=== PATIENT | female | born 1950 | race African-American/Black ===

== ENCOUNTER 2016-12-14 11:15 | Inpatient (IN) | payer MEDICARE, MEDICAID ==
[~2016-12-14] VITALS: Ht 170.2 cm; Wt 86.2 kg
[2016-12-14] VITALS (7 sets, daily range): BP systolic 136–160; BP diastolic 50–82
[~2016-12-14 11:15] MED LIST: AMITRIPTYLINE25 MG ORAL; CALCITRIOL0.25 MCG PO; COLACE250 MG ORAL; ERGOCALCIF8000 UNIT1 PO; GABAPENTIN300 MG ORAL; HALDOL INJECT5 MG/ML IM; LEVOTHYROXINE25 MCG ORAL; LIPITOR20 MG ORAL; LIPITOR40 MG ORAL; LORAZEPAM0.5 MG ORAL; METOPROLOL TART25 MG ORAL; NEPHRO-VITE RX1 EAC1 PO; NEURONTIN300 MG ORAL; NEURONTIN600 MG ORAL; NORCO 10/3251 EA ORAL; NORCO 5-325 TA1 EACH ORAL; NOVOLOG100 UNIT/3 SUBQ; PRILOSEC10 MG ORAL; PROCRIT10000 UNIT SUBQ; REGLAN5 MG ORAL; TYLENOL325 MG ORAL; VITAMIN D22000 UNIT PO
[2016-12-14 11:53] LABS: BASOPHILS % (AUTO) 2.2 % (0.0-2.0); EOSINOPHILS % (AUTO) 1.9 % (0.0-3.0); LYMPHOCYTES % (AUTO) 4.6 % (20.0-45.0); MEAN CORPUSCULAR HEMOGLOBIN 29.2 PG (27.0-31.0); MEAN CORPUSCULAR HGB CONC 31.3 G/DL (32.0-36.0); MEAN CORPUSCULAR VOLUME 93 FL (80-99); MONOCYTES % (AUTO) 8.3 % (1.0-10.0); PLATELET COUNT 238 K/UL (150-450); RED CELL DISTRIBUTION WIDTH 14.6 % (11.6-14.8); WHITE BLOOD COUNT 11.7 K/UL (4.8-10.8)
[2016-12-14 11:58] LABS: INR 1.3 (0.9-1.1); PROTHROMBIN TIME 13.3 SEC (9.30-11.50)
[2016-12-14 11:59] LABS: ALBUMIN/GLOBULIN RATIO 1.4 (1.0-2.7); CALCIUM 9.7 mg/dL (8.6-10.2); CREATININE 6.7 mg/dL (0.5-0.9); GLOMERULAR FILTRATION RATE 7.5 mL/min (>60); POTASSIUM 5.5 mEQ/L (3.4-4.9); TOTAL PROTEIN 6.9 g/dL (6.6-8.7); TROPONIN I < 0.30 ng/mL (<=0.30)
[2016-12-14] MEDS ORDERED: RENVELA0.8 GM ORAL (12:04)
[2016-12-14] MEDS ORDERED: NEURONTIN600 MG ORAL (12:04)
[2016-12-14] MEDS ORDERED: LEVEMIR100 UNIT/1 SUBQ (12:04)
[2016-12-14] MEDS ORDERED: AMLODIPINE BESY10 MG ORAL (12:04)
[2016-12-14] MEDS ORDERED: LOSARTAN POTASS50 MG ORAL (12:04)
[2016-12-14] MEDS ORDERED: FUROSEMIDE20 M1 ORAL (12:04)
[2016-12-14] MEDS ORDERED: CATAPRES0.1 MG ORAL ×2 (12:04→19:48)
[2016-12-14] MEDS ORDERED: NEPHROVITE1 TAB ORAL (12:04)
[2016-12-14] MEDS ORDERED: HUMULIN R100 UNIT/1 SUBQ ×2 (12:04→19:48)
[2016-12-14] MEDS ORDERED: ELIQUIS2.5 MG PO (12:04)
[2016-12-14 12:09] LABS: CKMB 1.9 ng/mL (< 3.8)
--- NOTE | 2016-12-14 15:04 | Emergency Room Report ---
History of Present Illness General Chief Complaint: Vomiting Source: Patient, Friend, EMS Present Illness HPI This patient presents from a [facility] facility. She has a history of end -stage renal disease and is dialysis dependent. She says diabetes and heart failure. She presents at the request of her primary care physician. Apparently she has been having nausea, vomiting and diarrhea. There is also concerned that she has had facial swelling. She denies chest pain. She does have crampy abdominal pain. She denies shortness of breath. She has no other complaints. Allergies: Coded Allergies: NSAIDS (NON-STEROIDAL ANTI-INFLAMMA (Verified Allergy, Mild, 01/30/16) Uncoded Allergies: NSAIDS (Allergy, Unknown, 03/15/16) Patient History Past Medical History: see triage record, DM, HTN, [place], CAD, CHF, renal disease, dialysis Social History: Denies: alcohol use, drug use, smoking Reviewed Nursing Documentation: PMH: Agreed, PSxH: Agreed Nursing Documentation-PMH Past Medical History: No History, Except For Hx Cardiac Problems: Yes - CHF Hx Hypertension: No - ANEMIA Hx Diabetes: Yes Hx Cancer: No Hx Gastrointestinal Problems: Yes - GASTROPARESIS Hx Dialysis: Yes - TUES,THURS,SAT Hx Neurological Problems: Yes - ENCEPHALOPATHY, neuralgia, neuritis Hx Weakness: Yes Review of Systems All Other Systems: negative except mentioned in HPI Physical Exam Vital Signs Date Time Temp Pulse Resp B/P Pulse Ox O2 Delivery O2 Flow Rate FiO2 12/14/16 11:05 66 20 184/86 98 Room Air 12/14/16 11:42 97.8 Sp02 EP Interpretation: reviewed, normal General Appearance: no apparent distress, alert, GCS 15, non-toxic Head: normocephalic, atraumatic Eyes: bilateral eye PERRL, bilateral eye normal inspection ENT: hearing grossly normal, normal pharynx, no angioedema, normal voice Neck: full range of motion, supple/symm/no masses Respiratory: chest non-tender, lungs clear, normal breath sounds, speaking full sentences Cardiovascular #1: regular rate, rhythm, no edema Gastrointestinal: normal bowel sounds, soft, non-distended, no guarding, no rebound, tenderness - mild ttp diffusely Rectal: deferred Musculoskeletal: back normal, normal range of motion, non-tender Neurologic: alert, oriented x3, responsive, motor strength/tone normal, sensory intact, speech normal Psychiatric: judgement/insight normal, memory normal, mood/affect normal, no suicidal/homicidal ideation Skin: normal color, no rash, warm/dry, well hydrated, other - Diffuse facial edema Medical Decision Making Diagnostic Impression: Primary Impression: Facial edema Additional Impressions: Fluid overload Hyperkalemia Gastroenteritis ER Course Patient presents facial edema. Differential diagnosis includes intrathoracic mass, fluid shifts, fluid overload to name a few. She also has a history consistent with gastroenteritis. She has mild tenderness to palpation in her abdomen but there is no localized tenderness I did not obtain a CT of the abdomen and pelvis. She was found to have an elevated potassium and is due for dialysis tomorrow. Therefore, this patient will be admitted for further workup of her facial edema and dialysis. She is admitted to the medical surgical floor. Labs Test 12/14/16 11:25 White Blood Count 11.7 K/UL (4.8-10.8) Red Blood Count 3.30 M/UL (4.20-5.40) Hemoglobin 9.6 G/DL (12.0-16.0) Hematocrit 30.8 % (37.0-47.0) Mean Corpuscular Volume 93 FL (80-99) Mean Corpuscular Hemoglobin 29.2 PG (27.0-31.0) Mean Corpuscular Hemoglobin Concent 31.3 G/DL (32.0-36.0) Red Cell Distribution Width 14.6 % (11.6-14.8) Platelet Count 238 K/UL (150-450) Mean Platelet Volume 8.0 FL (6.5-10.1) Neutrophils (%) (Auto) 83.0 % (45.0-75.0) Lymphocytes (%) (Auto) 4.6 % (20.0-45.0) Monocytes (%) (Auto) 8.3 % (1.0-10.0) Eosinophils (%) (Auto) 1.9 % (0.0-3.0) Basophils (%) (Auto) 2.2 % (0.0-2.0) Prothrombin Time 13.3 SEC (9.30-11.50) Prothromb Time International Ratio 1.3 (0.9-1.1) Activated Partial Thromboplast Time 29 SEC (23-33) Sodium Level 137 mEQ/L (135-145) Potassium Level 5.5 mEQ/L (3.4-4.9) Chloride Level 91 mEQ/L (98-107) Carbon Dioxide Level 26 mEQ/L (20-30) Anion Gap 20 (5-15) Blood Urea Nitrogen 44 mg/dL (7-23) Creatinine 6.7 mg/dL (0.5-0.9) Estimat Glomerular Filtration Rate 7.5 mL/min (>60) Glucose Level 135 mg/dL (74-106) Calcium Level 9.7 mg/dL (8.6-10.2) Total Bilirubin 0.9 mg/dL (0.0-1.2) Aspartate Amino Transf (AST/SGOT) 25 U/L (5-40) Alanine Aminotransferase (ALT/SGPT) 36 U/L (3-33) Alkaline Phosphatase 387 U/L (35-104) Total Creatine Kinase 43 U/L (26-140) Creatine Kinase MB 1.9 ng/mL (< 3.8) Creatine Kinase MB Relative Index 4.4 Troponin I < 0.30 ng/mL (<=0.30) Total Protein 6.9 g/dL (6.6-8.7) Albumin 4.1 g/dL (3.5-5.2) Globulin 2.8 g/dL Albumin/Globulin Ratio 1.4 (1.0-2.7) Lipase 12 U/L (< 60) Last Vital Signs Date Time Temp Pulse Resp B/P Pulse Ox O2 Delivery O2 Flow Rate FiO2 12/14/16 14:00 63 15 157/53 99 Room Air 12/14/16 11:42 97.8 Disposition: ADMITTED INPATIENT Condition: Serious Referrals: ALBERTO PATEL (PCP) MELANIE CARMONA D.O. Dec 14, 2016 15:04
[2016-12-14] MEDS ORDERED: VITAMIN D250000 UNI1 ORAL (19:48)
[2016-12-14] MEDS ORDERED: METOPROLOL TART25 MG ORAL (19:48)
[2016-12-14] MEDS ORDERED: RENVELA800 MG ORAL ×2 (19:48)
[2016-12-14] MEDS ORDERED: METOPROLOL TART50 M1 ORAL (19:48)
[2016-12-14] MEDS ORDERED: AMITRIPTYLINE H10 MG ORAL (19:48)
[2016-12-14] MEDS ORDERED: Norco 10mg/325mg tab ORAL PRN (20:00)
[2016-12-14] MEDS: NovoLOG Insulin Flexpen SUBQ SCH (21:00)
[2016-12-14] MEDS: Levemir Flexpen SUBQ SCH (21:00)
[2016-12-14] MEDS ORDERED: Vitamin D 50,000 units cap ORAL ONE (21:00)
[2016-12-14] MEDS: Norco 10mg/325mg tab ORAL PRN (22:01)
[2016-12-14] MEDS: Metoprolol 50mg tab ORAL SCH (22:03)
--- NOTE | 2016-12-14 22:18 | History and Physical Report ---
DATE OF ADMISSION: 12/14/2016 SUBJECTIVE: This is elderly female, who came to the emergency room for having recurrent nausea, vomiting, and abdominal pain. The patient was found to have possible urinary tract infection. She has been sick for last three days. PAST MEDICAL HISTORY: Chronic end-stage renal disease, on hemodialysis and hypertension. ALLERGIES: NKDA. FAMILY HISTORY: Noncontributory. MEDICATIONS: See the list. PHYSICAL EXAMINATION: GENERAL: This is an elderly female, currently awake, feels fine. VITAL SIGNS: Blood pressure is 130/70, pulse 74, and respirations 18. SKIN: Good skin turgor. HEENT: AT/NC. EOMI. PERRLA. NECK: Supple. EXTREMITIES: CCE. NEUROLOGICAL: The patient is no focal deficit. GENITOURINARY EXAMINATION: Deferred. LABORATORY DATA: PLAN: We will admit to the medical floor. Start Zofran, IV antibiotics, and pulmonary treatment. Continue supportive treatment. Continue discussed with Nephrology and Gastroenterology. Mal Dey M.D. DR: ELLYN JOB#: [id number] CC:
[2016-12-15] VITALS (8 sets, daily range): BP systolic 138–168; BP diastolic 59–72
[2016-12-15] MEDS ORDERED: LORazepam 0.5mg tab ORAL SCH
[2016-12-15] MEDS: NovoLOG Insulin Flexpen SUBQ SCH ×4 (06:10→20:53)
[2016-12-15] MEDS: Losartan 50mg tab ORAL SCH ×2 (09:24→17:31)
[2016-12-15] MEDS: Eliquis 2.5mg tablet ORAL SCH ×2 (09:24→17:31)
[2016-12-15] MEDS: Metoprolol 25mg tab ORAL SCH (09:24)
[2016-12-15] MEDS: Nephrovite tab ORAL SCH (09:24)
[2016-12-15] MEDS: Levothyroxine 25mcg tab ORAL SCH (09:47)
[2016-12-15] MEDS: Norco 10mg/325mg tab ORAL PRN (12:24)
--- NOTE | 2016-12-15 16:24 | GI Initial Consult Note ---
Loraine Wright N.P. 12/15/16 1624: History of Present Illness General Date patient seen: Dec 15, 2016 Time patient seen: 13:00 Reason for Hospitalization: Vomiting Referring physician: ALBERTO PATEL Reason for Consultation: ABDOMINAL PAIN, N/V Present Illness HPI [facility]. She has a history of end -stage renal disease and is dialysis dependent. She says diabetes and heart failure. She presents at the request of her primary care physician. Apparently she has been having nausea, vomiting and diarrhea. There is also concerned that she has had facial swelling. She denies chest pain. She does have crampy abdominal pain. She denies shortness of breath. She has no other complaints. GI CONSULT: HPI as noted above. GI consulted for abdominal pain & N/V x 3 days. Pt seen on floor s/p HD and fatigued NAD. C/o of dull abdominal pain mainly in her epigastric region. She presents today with leukocytosis, anemia, abnormal LFTs and elevated creatinine. Unknown history of any endoscopic procedures. Home Meds Reported Medications Sevelamer Carbonate (Renvela) 800 Mg Tablet, 1600 MG ORAL THREE TIMES A DAY, TAB 12/14/16 Sevelamer Carbonate (Renvela) 800 Mg Tablet, 1600 MG ORAL ONCE A DAY BEFORE HD, TAB 12/14/16 Metoprolol Tartrate* (METOPROLOL TARTRATE*) 50 Mg Tablet, 50 MG ORAL BEDTIME, TAB 12/14/16 Metoprolol Tartrate* (METOPROLOL TARTRATE*) 25 Mg Tablet, 25 MG ORAL DAILY, TAB 12/14/16 Insulin Regular, Human (HUMULIN R) 100 Unit/1 Ml Vial, 0 SUBQ AC+HS Y for Hyperglycemia, VIAL 12/14/16 Ergocalciferol (Vitamin D2)* (VITAMIN D*) 50,000 Unit Capsule, 63714 UNIT ORAL ONCE A MONTH (), CAP 12/14/16 Amitriptyline Hcl* (AMITRIPTYLINE HCL*) 10 Mg Tablet, 10 MG ORAL BEDTIME, TAB 12/14/16 Clonidine Hcl* (CATAPRES*) 0.1 Mg Tablet, 0.1 MG ORAL DAILY Y for For High Blood Pressure, TAB 12/14/16 Vitamin B Cmplx/Vit C/Folic AC (Nephro-Moises Tablet) 0.8 Mg Tablet, 1 TAB ORAL DAILY, #30 TAB 0 Refills 12/14/16 Losartan Potassium* (LOSARTAN POTASSIUM*) 50 Mg Tablet, 50 MG ORAL BID, TAB 12/14/16 Insulin Detemir (LEVEMIR) 100 Unit/1 Ml Vial, 10 SUBQ DAILY, VIAL 12/14/16 Furosemide* (LASIX*) 20 Mg Tablet, 20 MG ORAL TID, TAB 12/14/16 Apixaban (ELIQUIS) 2.5 Mg Tablet, 2.5 MG PO BID, TAB 12/14/16 Amlodipine Besylate* (AMLODIPINE BESYLATE*) 10 Mg Tablet, 10 MG ORAL DAILY, TAB 12/14/16 Hydrocodone/Acetaminophen (Hydrocodon-Acetaminophn 10-325) 1 Ea Tab, 1 TAB ORAL Q4H Y for For Pain, #30 TAB 0 Refills 09/24/15 Gabapentin* (NEURONTIN*) 600 Mg Tablet, 600 MG ORAL QHS, TAB 09/24/15 Levothyroxine Sodium* (LEVOTHYROXINE SODIUM*) 25 Mcg Tablet, 25 MCG ORAL DAILY, TAB Take in the morning on an empty stomach, at least 30 minutes before food. 09/04/15 Acetaminophen (Tylenol) 325 Mg Tab, 325 MG ORAL Q4HR Y for For Pain, #30 TAB 0 Refills 09/01/15 Atorvastatin Calcium* (LIPITOR*) 20 Mg Tablet, 20 MG ORAL BEDTIME, TAB 09/01/15 Med list reviewed/reconciled: Yes Allergies: Coded Allergies: NSAIDS (NON-STEROIDAL ANTI-INFLAMMA (Verified Allergy, Mild, 01/30/16) Uncoded Allergies: NSAIDS (Allergy, Unknown, 03/15/16) Patient History History Provided By: Patient, Medical Record PMH Narrative Past Medical History: see triage record, DM, HTN, [place], CAD, CHF, renal disease, dialysis Social History: Denies: alcohol use, drug use, smoking Reviewed Nursing Documentation: PMH: Agreed, PSxH: Agreed Review of Systems All Other Systems: negative except mentioned in HPI Physical Exam Vital Signs Date Time Temp Pulse Resp B/P Pulse Ox O2 Delivery O2 Flow Rate FiO2 12/14/16 11:05 66 20 184/86 98 Room Air 12/14/16 11:42 97.8 Sp02 EP Interpretation: reviewed General Appearance: no apparent distress, obese Head: normocephalic EENT: PERRL/EOMI, normal ENT inspection Neck: normal inspection, supple Respiratory: normal breath sounds, no respiratory distress Cardiovascular: normal rate Gastrointestinal: normal inspection, soft, tenderness - epigastric Rectal: deferred Musculoskeletal: back normal Neurologic: normal inspection, alert, oriented x3, responsive Psychiatric: normal inspection, judgement/insight normal, memory normal Skin: normal inspection, normal color, no rash, warm/dry Lymphatic: normal inspection, no adenopathy Other Organ Systems BLE +1 edema Current Medications Current Medications Medications (Trade) Dose Ordered Sig/Clau Route PRN Reason Start Time Stop Time Status Last Admin Dose Admin Acetaminophen (Tylenol) 325 mg Q4HR PRN ORAL For Pain 12/14/16 20:00 01/13/17 19:59 12/15/16 06:29 Acetaminophen/ Hydrocodone Bitart 1 ea 1 ea Q4H PRN ORAL For Pain 12/15/16 00:00 12/22/16 00:00 12/15/16 12:24 Amitriptyline HCl (Elavil) 10 mg BEDTIME ORAL 12/14/16 21:00 01/13/17 20:59 Amlodipine Besylate (Norvasc) 10 mg DAILY ORAL 12/15/16 09:00 01/14/17 08:59 12/15/16 09:24 Apixaban (Eliquis) 2.5 mg BID ORAL 12/15/16 09:00 01/14/17 08:59 12/15/16 09:24 Atorvastatin Calcium (Lipitor) 20 mg BEDTIME ORAL 12/14/16 21:00 01/13/17 20:59 12/14/16 22:03 Ciprofloxacin (Cipro 400mg/ 200ml premix bag) 200 ml @ 200 mls/hr Q24H IV 12/16/16 20:00 12/23/16 19:59 Clonidine HCl (Catapres) 0.1 mg DAILY PRN ORAL For High Blood Pressure 12/14/16 21:00 01/13/17 20:59 Dextrose (Dextrose 50%) STAT PRN IV Hypoglycemia 12/14/16 20:00 01/13/17 19:59 Furosemide (Lasix) 20 mg TID ORAL 12/15/16 09:00 01/14/17 08:59 12/15/16 12:24 Gabapentin (Neurontin) 600 mg QHS ORAL 12/14/16 21:00 01/13/17 20:59 12/14/16 22:02 Insulin Aspart (NovoLOG) BEFORE MEALS AND HS SUBQ 12/14/16 21:00 01/13/17 20:59 Insulin Detemir (Levemir) 10 units BEDTIME SUBQ 12/14/16 21:00 01/13/17 20:59 Levothyroxine Sodium (Synthroid) 25 mcg DAILY ORAL 12/15/16 09:00 01/14/17 08:59 12/15/16 09:47 Losartan Potassium (Cozaar) 50 mg BID ORAL 12/15/16 09:00 01/14/17 08:59 12/15/16 09:24 Metoprolol Tartrate (Lopressor) 25 mg DAILY ORAL 12/15/16 09:00 01/14/17 08:59 12/15/16 09:24 Metoprolol Tartrate (Lopressor) 50 mg BEDTIME ORAL 12/14/16 21:00 01/13/17 20:59 12/14/16 22:03 Ondansetron HCl (Zofran) 4 mg Q4HR PRN IVP Nausea & Vomiting 12/14/16 20:00 01/13/17 19:59 Sevelamer Carbonate (Renvela) 1,600 mg THREE TIMES A DAY ORAL 12/15/16 09:00 01/14/17 08:59 12/15/16 09:47 Vitamin B Complex/ Vit C/Folic Acid (Nephrovite) 1 tab DAILY ORAL 12/15/16 09:00 01/14/17 08:59 12/15/16 09:24 GI: Plan Problems: (1) Gastroenteritis (2) Fluid overload (3) Leukocytosis (4) Hypoalbuminemia (5) Anemia (6) Vomiting (7) Diarrhea Plan lipase negative elevated alkaline phos >> ordered ABD U/S anemia work up OB stool uncollected monitor H&H, transfuse prn zofran prn ordered cdiff renal/cardiac diet H2 fu labs pt on Eliquis (will need to be stop x 48 hours prior any endoscopic procedures) Discussed with Dr. Calvillo Thank you for referring this patient, we will follow. ESTRELLA CALVILLO 12/23/16 1417: History of Present Illness General Reason for Hospitalization: Vomiting Present Illness Home Meds Reported Medications Sevelamer Carbonate (Renvela) 800 Mg Tablet, 1600 MG ORAL THREE TIMES A DAY, TAB 12/14/16 Sevelamer Carbonate (Renvela) 800 Mg Tablet, 1600 MG ORAL ONCE A DAY BEFORE HD, TAB 12/14/16 Metoprolol Tartrate* (METOPROLOL TARTRATE*) 50 Mg Tablet, 50 MG ORAL BEDTIME, TAB 12/14/16 Metoprolol Tartrate* (METOPROLOL TARTRATE*) 25 Mg Tablet, 25 MG ORAL DAILY, TAB 12/14/16 Insulin Regular, Human (HUMULIN R) 100 Unit/1 Ml Vial, 0 SUBQ AC+HS Y for Hyperglycemia, VIAL 12/14/16 Ergocalciferol (Vitamin D2)* (VITAMIN D*) 50,000 Unit Capsule, 19496 UNIT ORAL ONCE A MONTH (), CAP 12/14/16 Amitriptyline Hcl* (AMITRIPTYLINE HCL*) 10 Mg Tablet, 10 MG ORAL BEDTIME, TAB 12/14/16 Clonidine Hcl* (CATAPRES*) 0.1 Mg Tablet, 0.1 MG ORAL DAILY Y for For High Blood Pressure, TAB 12/14/16 Vitamin B Cmplx/Vit C/Folic AC (Nephro-Moises Tablet) 0.8 Mg Tablet, 1 TAB ORAL DAILY, #30 TAB 0 Refills 12/14/16 Losartan Potassium* (LOSARTAN POTASSIUM*) 50 Mg Tablet, 50 MG ORAL BID, TAB 12/14/16 Insulin Detemir (LEVEMIR) 100 Unit/1 Ml Vial, 10 SUBQ DAILY, VIAL 12/14/16 Furosemide* (LASIX*) 20 Mg Tablet, 20 MG ORAL TID, TAB 12/14/16 Apixaban (ELIQUIS) 2.5 Mg Tablet, 2.5 MG PO BID, TAB 12/14/16 Amlodipine Besylate* (AMLODIPINE BESYLATE*) 10 Mg Tablet, 10 MG ORAL DAILY, TAB 12/14/16 Hydrocodone/Acetaminophen (Hydrocodon-Acetaminophn 10-325) 1 Ea Tab, 1 TAB ORAL Q4H Y for For Pain, #30 TAB 0 Refills 09/24/15 Gabapentin* (NEURONTIN*) 600 Mg Tablet, 600 MG ORAL QHS, TAB 09/24/15 Levothyroxine Sodium* (LEVOTHYROXINE SODIUM*) 25 Mcg Tablet, 25 MCG ORAL DAILY, TAB Take in the morning on an empty stomach, at least 30 minutes before food. 09/04/15 Acetaminophen (Tylenol) 325 Mg Tab, 325 MG ORAL Q4HR Y for For Pain, #30 TAB 0 Refills 09/01/15 Atorvastatin Calcium* (LIPITOR*) 20 Mg Tablet, 20 MG ORAL BEDTIME, TAB 09/01/15 Allergies: Coded Allergies: NSAIDS (NON-STEROIDAL ANTI-INFLAMMA (Verified Allergy, Mild, 01/30/16) Uncoded Allergies: NSAIDS (Allergy, Unknown, 03/15/16) GI: Plan Plan The patient was seen and examined at bedside and all new and available data was reviewed in the patients chart. I agree with the above findings, impression and plan. (Patient seen earlier today. Signature stamp does not reflect patient encounter time.). -Loraine Bishop MD, N.P. Dec 15, 2016 16:24 ESTRELLA CALVILLO Dec 23, 2016 14:17
[2016-12-15] MEDS ORDERED: Famotidine 20 MG/ 2ML VIAL IVP SCH (21:00)
[2016-12-15] MEDS: Levemir Flexpen SUBQ SCH (21:00)
[2016-12-15] MEDS: Metoprolol 50mg tab ORAL SCH (21:02)
--- NOTE | 2016-12-15 22:28 | Progress Note ---
DATE: 12/15/2016 SUBJECTIVE: This is a 66-year-old female, who is currently awake and comfortable. OBJECTIVE: VITAL SIGNS: Blood pressure is 130/70, pulse 60, and respirations 18. No fever. HEENT: NAD. CHEST: Bilaterally clear. CARDIOVASCULAR: Regular rhythm. ABDOMEN: Soft. EXTREMITIES: CCE. NEUROLOGICAL: The patient has generalized weakness. GENITOURINARY: Deferred. ASSESSMENT: 1. Recurrent nausea and vomiting. 2. Abdominal pain. 3. Depression. 4. . 5. Diabetic neuropathy. PLAN: 1. Continue current medical. 2. Continue IV fluids and GI consult. 3. Continue Protonix. 4. Continue Zofran. 5. Followup the labs. Mal Dey M.D. DR: ADRIANA JOB#: [id number] CC:
--- NOTE | 2016-12-15 23:45 | Nephrology Progress Note ---
Objective Objective Last 24 Hour Vital Signs Date Time Temp Pulse Resp B/P Pulse Ox O2 Delivery O2 Flow Rate FiO2 12/15/16 21:02 70 148/59 12/15/16 19:00 99.9 70 20 148/59 88 Room Air 12/15/16 17:31 141/64 12/15/16 16:00 98.2 57 20 141/64 94 Room Air 12/15/16 11:24 98.2 59 15 145/60 95 Room Air 12/15/16 09:24 62 168/72 12/15/16 09:24 168/72 12/15/16 09:24 62 168/72 12/15/16 09:03 Room Air 12/15/16 09:01 98.7 62 20 168/72 Room Air 12/15/16 08:23 98.1 61 15 160/70 95 Room Air 12/15/16 05:30 Room Air 12/15/16 05:30 97.5 60 20 142/64 93 Room Air 12/15/16 04:00 98.4 58 20 139/64 97 Room Air 12/15/16 00:00 98.1 58 20 138/59 98 Room Air Intake and Output 12/14/16 12/15/16 19:00 07:00 Intake Total 440 ml Balance 440 ml Intake Oral 240 ml IV Total 200 ml # Voids 1 2 Height (Feet): 5 Height (Inches): 7.00 Weight (Pounds): 190 PAULINE GONZALEZ 14, 2017 23:45
[2016-12-16] VITALS: BP 146/55
[2016-12-16 04:00] VITALS: BP 147/53
[2016-12-16] MEDS: NovoLOG Insulin Flexpen SUBQ SCH ×4 (06:10→21:00)
[2016-12-16 07:20] LABS: BASOPHILS % (AUTO) 1.3 % (0.0-2.0); EOSINOPHILS % (AUTO) 1.8 % (0.0-3.0); LYMPHOCYTES % (AUTO) 9.3 % (20.0-45.0); MEAN CORPUSCULAR VOLUME 94 FL (80-99); MEAN PLATELET VOLUME 7.7 FL (6.5-10.1); MONOCYTES % (AUTO) 8.4 % (1.0-10.0); NEUTROPHILS % (AUTO) 79.2 % (45.0-75.0); PLATELET COUNT 264 K/UL (150-450); RED CELL DISTRIBUTION WIDTH 14.3 % (11.6-14.8); WHITE BLOOD COUNT 16.5 K/UL (4.8-10.8)
[2016-12-16 07:33] LABS: ALANINE AMINOTRANSFERASE 23 U/L (3-33); ALBUMIN/GLOBULIN RATIO 1.5 (1.0-2.7); ANION GAP 19 (5-15); ASPARTATE AMINO TRANSFERASE 17 U/L (5-40); CALCIUM 9.6 mg/dL (8.6-10.2); CARBON DIOXIDE 30 mEQ/L (20-30); CHLORIDE 88 mEQ/L (98-107); CREATININE 5.9 mg/dL (0.5-0.9); GLOMERULAR FILTRATION RATE 8.7 mL/min (>60); POTASSIUM 4.7 mEQ/L (3.4-4.9); SODIUM 137 mEQ/L (135-145); TOTAL PROTEIN 6.7 g/dL (6.6-8.7)
[2016-12-16 07:53] LABS: HEMOLYSIS 1; IRON 51 ug/dL (37-145); TOTAL IRON BINDING CAPACITY 238 ug/dL (250-400)
[2016-12-16 07:57] VITALS: BP 144/58
[2016-12-16 08:00] LABS: FERRITIN > 2000 ng/mL (13-150)
[2016-12-16] MEDS: Losartan 50mg tab ORAL SCH ×2 (08:44→18:00)
[2016-12-16] MEDS: Levothyroxine 25mcg tab ORAL SCH (08:44)
[2016-12-16] MEDS: Nephrovite tab ORAL SCH (08:44)
[2016-12-16] MEDS: Metoprolol 25mg tab ORAL SCH (08:45)
[2016-12-16] MEDS: Eliquis 2.5mg tablet ORAL SCH ×2 (08:45→17:59)
[2016-12-16 11:25] VITALS: BP 146/56
--- NOTE | 2016-12-16 12:01 | Diagnostic Imaging Report ---
Indication: Abdominal pain, nausea, vomiting Technique: Farley-scale and duplex images of the upper abdomen were obtained Comparison: Reference made to abdomen pelvis CT 03/21/2016 Findings: There is a mild amount of ascites. Gallbladder demonstrates a questionable small non-shadowing gallstones. The gallbladder wall is mildly thickened, measuring 4 mm in thickness. There is some pericholecystic fluid which is probably is ascites fluid. Sonographic Jacob's sign is negative. Common bile duct measures 4 mm in diameter. No intrahepatic biliary ductal dilatation. Liver demonstrates normal echogenicity, no focal abnormality. It is enlarged. Portal vein and hepatic veins are patent.. Pancreas is unremarkable. Spleen is unremarkable. Left kidney measures 8.3 cm in length. Right kidney measures 8.3 cm length. Both kidneys demonstrate normal echogenicity. There is no hydronephrosis. Left kidney demonstrates a 1 cm upper pole cyst. Non-shadowing echogenic foci are seen in the upper renal sinus. Right kidney demonstrates multiple cysts. There is also a hypoechoic focus with calcified hartley in the right lower pole cortex. Non-aneurysmal abdominal aorta. Impression: Mild ascites Questionable non-shadowing gallstones Mildly thickened gallbladder wall. Probably related to the process at is causing ascites, but acute cholecystitis as etiology of this cannot be ruled out. Consider nuclear medicine hepatobiliary scan if there is high clinical suspicion Right renal hypoechoic focus with calcified hartley. On CT scan of March 2016, this demonstrated central fluid attenuation, so is probably a cyst with calcified hartley Left renal cyst Left renal sinus hyperechoic foci, demonstrated on prior CT to represent small calculi
--- NOTE | 2016-12-16 12:14 | GI Progress Note ---
Assessment/Plan Problems: (1) Vomiting ICD Codes: R11.10 - Vomiting, unspecified SNOMED: 280641170 (2) Hypoalbuminemia ICD Codes: E88.09 - Other disorders of plasma-protein metabolism, not elsewhere classified SNOMED: 049382368 (3) Gastroenteritis ICD Codes: K52.9 - Noninfective gastroenteritis and colitis, unspecified SNOMED: 71827042 (4) Diarrhea ICD Codes: R19.7 - Diarrhea, unspecified SNOMED: 57971182 (5) Anemia ICD Codes: D64.9 - Anemia, unspecified SNOMED: 517476298 Status: unchanged Status Narrative Discussed with Dr. Bhatti. Assessment/Plan lipase negative elevated alkaline phos abd U/S reviewed >> Mild ascites. Questionable non-shadowing gallstones Mildly thickened gallbladder wall. See full report. stable H&H, transfuse prn OB stool uncollected ordered MRCP, pelvic U/S fu AMA, GGTP fu cdiff, denies diarrhea renal/cardiac diet zofran prn H2 fu labs abx pt on Eliquis (will need to be stop x 48 hours prior any endoscopic procedures) Subjective Gastrointestinal/Abdominal: Reports: abdominal pain - lower pelvic / abdominal pain Objective Last 24 Hour Vital Signs Date Time Temp Pulse Resp B/P Pulse Ox O2 Delivery O2 Flow Rate FiO2 12/16/16 11:25 98.2 61 20 146/56 98 Room Air 12/16/16 08:56 68 144/58 12/16/16 08:45 68 144/58 12/16/16 08:44 144/58 12/16/16 07:57 99.3 68 20 144/58 92 Room Air 12/16/16 04:00 97.9 69 20 147/53 98 Room Air 12/16/16 00:00 98.2 65 20 146/55 98 Room Air 12/15/16 21:02 70 148/59 12/15/16 19:00 99.9 70 20 148/59 88 Room Air 12/15/16 17:31 141/64 12/15/16 16:00 98.2 57 20 141/64 94 Room Air Intake and Output 12/15/16 12/16/16 19:00 07:00 Intake Total 400 ml 390 ml Output Total 2000 ml Balance -1600 ml 390 ml Intake Oral 200 ml 390 ml IV Total 200 ml Output Hemodialysis UF 2000 ml # Voids 1 # Bowel Movements 1 Laboratory Tests Test 12/16/16 05:05 White Blood Count 16.5 K/UL (4.8-10.8) H Red Blood Count 3.60 M/UL (4.20-5.40) L Hemoglobin 10.5 G/DL (12.0-16.0) L Hematocrit 33.7 % (37.0-47.0) L Mean Corpuscular Volume 94 FL (80-99) Mean Corpuscular Hemoglobin 29.0 PG (27.0-31.0) Mean Corpuscular Hemoglobin Concent 31.0 G/DL (32.0-36.0) L Red Cell Distribution Width 14.3 % (11.6-14.8) Platelet Count 264 K/UL (150-450) Mean Platelet Volume 7.7 FL (6.5-10.1) Neutrophils (%) (Auto) 79.2 % (45.0-75.0) H Lymphocytes (%) (Auto) 9.3 % (20.0-45.0) L Monocytes (%) (Auto) 8.4 % (1.0-10.0) Eosinophils (%) (Auto) 1.8 % (0.0-3.0) Basophils (%) (Auto) 1.3 % (0.0-2.0) Reticulocyte Count Pending Sodium Level 137 mEQ/L (135-145) Potassium Level 4.7 mEQ/L (3.4-4.9) Chloride Level 88 mEQ/L (98-107) L Carbon Dioxide Level 30 mEQ/L (20-30) Anion Gap 19 (5-15) H Blood Urea Nitrogen 35 mg/dL (7-23) H Creatinine 5.9 mg/dL (0.5-0.9) H Estimat Glomerular Filtration Rate 8.7 mL/min (>60) Glucose Level 72 mg/dL (74-106) L Calcium Level 9.6 mg/dL (8.6-10.2) Iron Level 51 ug/dL (37-145) Total Iron Binding Capacity 238 ug/dL (250-400) L Percent Iron Saturation 21 % (15-50) Unsaturated Iron Binding 187 ug/dL (112-346) Ferritin > 2000 ng/mL (13-150) H Total Bilirubin 0.9 mg/dL (0.0-1.2) Aspartate Amino Transf (AST/SGOT) 17 U/L (5-40) Alanine Aminotransferase (ALT/SGPT) 23 U/L (3-33) Alkaline Phosphatase 345 U/L (35-104) H Total Protein 6.7 g/dL (6.6-8.7) Albumin 4.1 g/dL (3.5-5.2) Globulin 2.6 g/dL Albumin/Globulin Ratio 1.5 (1.0-2.7) Vitamin B12 Level > 2000 pg/mL (211-946) H Folate Pending Thyroid Stimulating Hormone (TSH) 5.840 uIU/mL (0.300-4.500) Free Thyroxine 1.26 ng/dL (0.86-1.85) Height (Feet): 5 Height (Inches): 7.00 Weight (Pounds): 190 General Appearance: no apparent distress, alert Cardiovascular: normal rate Respiratory/Chest: normal breath sounds, no respiratory distress Abdominal Exam: normal bowel sounds, non tender, soft Extremities: normal range of motion Objective Loraine Wright N.P. Dec 16, 2016 12:14
[2016-12-16 16:00] VITALS: BP 150/65
--- NOTE | 2016-12-16 17:13 | Diagnostic Imaging Report ---
Indication: Abdominal pain, possible gallstones Technique: Coronal and axial single shot fast spin-echo breath-hold, axial T2 FRFSE, 2-D thick slab MRCP, AXIAL 2-D FIESTA fat saturated, axial 3-D dual echo breath-hold, water weighted axial LAVA FLEX, revealed 3-D MRCP images were obtained of the abdomen. MIP reconstructions were generated of the bile ducts Comparison: Reference made to ultrasound dated 12/15/2016, CT abdomen pelvis dated 03/21/2016 Findings: Gallbladder demonstrates a single tiny low signal filling defect in the fundus kidneys demonstrate numerous cysts bilaterally.. Signal characteristics of this are isointense to the gallbladder wall on all sequences, so this could represent a small polyp rather than a stone. This measures approximately to 4 mm in diameter. No other gallbladder filling defects are evident. No biliary ductal dilatation. The pancreatic duct is minimally ectatic. Trace ascites fluid is demonstrated, also reported on recent ultrasound. There is also a small amount of pleural fluid on the right. There is right basilar pulmonary parenchymal consolidation or atelectasis. There are numerous renal cysts bilaterally. The adrenals are unremarkable. Impression: Small filling defect in the gallbladder fundus. Suspect this represents a small polyp, although could represent a small stone Trace ascites Right-sided pleural effusion and right basilar atelectasis and/or consolidation Mildly ectatic pancreatic duct, significance uncertain Bilateral renal cysts
[2016-12-16 19:00] VITALS: BP 147/56
--- NOTE | 2016-12-16 21:21 | Consultation ---
History of Present Illness General Date patient seen: Dec 16, 2016 Chief Complaint: Vomiting Referring physician: ALBERTO PATEL Reason for Consultation: ABDOMINAL PAIN, N/V Present Illness HPI Patient is a care home resident with history of end-stage renal disease and is dialysis dependent, diabetes and heart failure. She presents at the request of her primary care physician. Apparently she has been having nausea, vomiting and diarrhea. There is also concerned that she has had facial swelling. She denies chest pain. She does have crampy abdominal pain. She denies shortness of breath. She has no other complaints. Allergies: Coded Allergies: NSAIDS (NON-STEROIDAL ANTI-INFLAMMA (Verified Allergy, Mild, 01/30/16) Uncoded Allergies: NSAIDS (Allergy, Unknown, 03/15/16) Medication History Scheduled Amitriptyline Hcl* (Amitriptyline Hcl*), 10 MG ORAL BEDTIME, (Reported) Amlodipine Besylate* (Amlodipine Besylate*), 10 MG ORAL DAILY, (Reported) Apixaban (Eliquis), 2.5 MG PO BID, (Reported) Atorvastatin Calcium* (Lipitor*), 20 MG ORAL BEDTIME, (Reported) Ergocalciferol (Vitamin D2)* (Vitamin D*), 50,000 UNIT ORAL ONCE A MONTH (), (Reported) Furosemide* (Lasix*), 20 MG ORAL TID, (Reported) Gabapentin* (Neurontin*), 600 MG ORAL QHS, (Reported) Insulin Detemir (Levemir), 10 SUBQ DAILY, (Reported) Levothyroxine Sodium* (Levothyroxine Sodium*), 25 MCG ORAL DAILY, (Reported) Losartan Potassium* (Losartan Potassium*), 50 MG ORAL BID, (Reported) Metoprolol Tartrate* (Metoprolol Tartrate*), 25 MG ORAL DAILY, (Reported) Metoprolol Tartrate* (Metoprolol Tartrate*), 50 MG ORAL BEDTIME, (Reported) Sevelamer Carbonate (Renvela), 1,600 MG ORAL ONCE A DAY BEFORE HD, (Reported) Sevelamer Carbonate (Renvela), 1,600 MG ORAL THREE TIMES A DAY, (Reported) Vitamin B Cmplx/Vit C/Folic AC (Nephro-Moises Tablet), 1 TAB ORAL DAILY, (Reported ) Scheduled PRN Acetaminophen (Tylenol), 325 MG ORAL Q4HR PRN for For Pain, (Reported) Clonidine Hcl* (Catapres*), 0.1 MG ORAL DAILY PRN for For High Blood Pressure, ( Reported) Hydrocodone/Acetaminophen (Hydrocodon-Acetaminophn 10-325), 1 TAB ORAL Q4H PRN for For Pain, (Reported) Insulin Regular, Human (Humulin R), 0 SUBQ AC+HS PRN for Hyperglycemia, ( Reported) Discontinued Medications Amitriptyline HCl (Elavil*), 10 MG ORAL BEDTIME, (Reported) Discontinued Reason: Medication dose changed Calcitriol (Calcitriol), 0.25 MCG PO DAILY PRN for Hypoglycemia, (Reported) Discontinued Reason: Therapy completed Clonidine Hcl* (Catapres*), 0.1 MG ORAL EVERY 6 HOURS, (Reported) Discontinued Reason: Medication dose changed Docusate Sodium (Docusate Sodium), 250 MG ORAL TWICE A DAY, (Reported) Discontinued Reason: Therapy completed Epoetin Aidan (Procrit), 10,000 UNIT SUBQ, (Reported) Discontinued Reason: Therapy completed Ergocalciferol (Vitamin D2) (Ergocalciferol), 5,000 UNIT PO ONCE A WEEK, ( Reported) Discontinued Reason: Therapy completed Ergocalciferol (Vitamin D2) (Vitamin D2), 50,000 UNIT PO, (Reported) Discontinued Reason: Therapy completed Gabapentin* (Neurontin*), 600 MG ORAL DAILY, (Reported) Discontinued Reason: Therapy completed Haloperidol Lactate (Haloperidol Lactate), 2 MG IM EVERY 6 HOURS, (Reported) Discontinued Reason: Therapy completed Insulin Aspart* (Novolog*), SUBQ, (Reported) Discontinued Reason: Therapy completed Insulin Regular, Human (Humulin R), 0 SUBQ, (Reported) Discontinued Reason: Therapy completed Lorazepam* (Lorazepam*), 0.5 MG ORAL EVERY 6 HOURS, (Reported) Discontinued Reason: Therapy completed Metoclopramide Hcl* (Reglan*), 5 MG ORAL QID, (Reported) Discontinued Reason: Therapy completed Metoprolol Tartrate* (Metoprolol Tartrate*), 25 MG ORAL TWICE A DAY, (Reported) Discontinued Reason: Medication dose changed Metoprolol Tartrate* (Metoprolol Tartrate*), 25 MG ORAL EVERY 12 HOURS, ( Reported) Discontinued Reason: Medication dose changed Omeprazole (Prilosec), 10 MG ORAL TWICE A DAY, (Reported) Discontinued Reason: Therapy completed Sevelamer Carbonate* (Renvela*), 1,600 MG ORAL, (Reported) Discontinued Reason: Therapy completed Vit B Cmplx 3/Fa/Vit C/Biotin (Nephro-Moises Rx Tablet), 0.8 MG PO DAILY, ( Reported) Discontinued Reason: Therapy completed Vit B Cmplx 3/Fa/Vit C/Biotin (Nephro-Moises Rx Tablet), 1 EACH PO, (Reported) Discontinued Reason: Therapy completed Patient History Healthcare decision maker Resuscitation status Do Not Resuscitate Advanced Directive on File No Past Medical/Surgical History Past Medical/Surgical History: (1) HTN (hypertension) (2) ESRD (end stage renal disease) on dialysis (3) DM (diabetes mellitus) (4) Fluid overload (5) Anemia Social History Social History: (1) Lives in care home (2) No history of alcohol use (3) Non-smoker (4) No illicit drug use Physical Exam Last 24 Hour Vital Signs Date Time Temp Pulse Resp B/P Pulse Ox O2 Delivery O2 Flow Rate FiO2 12/16/16 19:00 98.2 65 20 147/56 90 Room Air 12/16/16 18:00 150/65 12/16/16 16:00 98.1 63 20 150/65 91 Room Air 12/16/16 11:25 98.2 61 20 146/56 98 Room Air 12/16/16 08:56 68 144/58 12/16/16 08:45 68 144/58 12/16/16 08:44 144/58 12/16/16 07:57 99.3 68 20 144/58 92 Room Air 12/16/16 04:00 97.9 69 20 147/53 98 Room Air 12/16/16 00:00 98.2 65 20 146/55 98 Room Air Intake and Output 12/15/16 12/16/16 19:00 07:00 Intake Total 400 ml 390 ml Output Total 2000 ml Balance -1600 ml 390 ml Intake Oral 200 ml 390 ml IV Total 200 ml Hemodialysis UF 2000 ml # Voids 1 # Bowel Movements 1 Laboratory Tests Test 12/16/16 05:05 White Blood Count 16.5 K/UL (4.8-10.8) H Red Blood Count 3.60 M/UL (4.20-5.40) L Hemoglobin 10.5 G/DL (12.0-16.0) L Hematocrit 33.7 % (37.0-47.0) L Mean Corpuscular Volume 94 FL (80-99) Mean Corpuscular Hemoglobin 29.0 PG (27.0-31.0) Mean Corpuscular Hemoglobin Concent 31.0 G/DL (32.0-36.0) L Red Cell Distribution Width 14.3 % (11.6-14.8) Platelet Count 264 K/UL (150-450) Mean Platelet Volume 7.7 FL (6.5-10.1) Neutrophils (%) (Auto) 79.2 % (45.0-75.0) H Lymphocytes (%) (Auto) 9.3 % (20.0-45.0) L Monocytes (%) (Auto) 8.4 % (1.0-10.0) Eosinophils (%) (Auto) 1.8 % (0.0-3.0) Basophils (%) (Auto) 1.3 % (0.0-2.0) Reticulocyte Count 3.0 % (0.0-2.0) H Sodium Level 137 mEQ/L (135-145) Potassium Level 4.7 mEQ/L (3.4-4.9) Chloride Level 88 mEQ/L (98-107) L Carbon Dioxide Level 30 mEQ/L (20-30) Anion Gap 19 (5-15) H Blood Urea Nitrogen 35 mg/dL (7-23) H Creatinine 5.9 mg/dL (0.5-0.9) H Estimat Glomerular Filtration Rate 8.7 mL/min (>60) Glucose Level 72 mg/dL (74-106) L Calcium Level 9.6 mg/dL (8.6-10.2) Iron Level 51 ug/dL (37-145) Total Iron Binding Capacity 238 ug/dL (250-400) L Percent Iron Saturation 21 % (15-50) Unsaturated Iron Binding 187 ug/dL (112-346) Ferritin > 2000 ng/mL (13-150) H Total Bilirubin 0.9 mg/dL (0.0-1.2) Aspartate Amino Transf (AST/SGOT) 17 U/L (5-40) Alanine Aminotransferase (ALT/SGPT) 23 U/L (3-33) Alkaline Phosphatase 345 U/L (35-104) H Total Protein 6.7 g/dL (6.6-8.7) Albumin 4.1 g/dL (3.5-5.2) Globulin 2.6 g/dL Albumin/Globulin Ratio 1.5 (1.0-2.7) Vitamin B12 Level > 2000 pg/mL (211-946) H Folate Pending Thyroid Stimulating Hormone (TSH) 5.840 uIU/mL (0.300-4.500) Free Thyroxine 1.26 ng/dL (0.86-1.85) Height (Feet): 5 Height (Inches): 7.00 Weight (Pounds): 190 Medications Current Medications Medications (Trade) Dose Ordered Sig/Clau Route PRN Reason Start Time Stop Time Status Last Admin Dose Admin Acetaminophen (Tylenol) 325 mg Q4HR PRN ORAL For Pain 12/14/16 20:00 01/13/17 19:59 12/15/16 06:29 Acetaminophen/ Hydrocodone Bitart 1 ea 1 ea Q4H PRN ORAL For Pain 12/15/16 00:00 12/22/16 00:00 12/15/16 12:24 Amitriptyline HCl (Elavil) 10 mg BEDTIME ORAL 12/14/16 21:00 01/13/17 20:59 12/15/16 21:02 Amlodipine Besylate (Norvasc) 10 mg DAILY ORAL 12/15/16 09:00 01/14/17 08:59 12/16/16 08:56 Apixaban (Eliquis) 2.5 mg BID ORAL 12/15/16 09:00 01/14/17 08:59 12/16/16 17:59 Atorvastatin Calcium (Lipitor) 20 mg BEDTIME ORAL 12/14/16 21:00 01/13/17 20:59 12/15/16 21:01 Ciprofloxacin (Cipro 200mg Premix) 100 ml @ 100 mls/hr Q24H IV 12/16/16 20:00 12/23/16 19:59 Clonidine HCl (Catapres) 0.1 mg DAILY PRN ORAL For High Blood Pressure 12/14/16 21:00 01/13/17 20:59 Dextrose (Dextrose 50%) STAT PRN IV Hypoglycemia 12/14/16 20:00 01/13/17 19:59 Famotidine (Pepcid I.v.) 20 mg Q48H IVP 12/15/16 21:00 01/14/17 20:59 Furosemide (Lasix) 20 mg TID ORAL 12/15/16 09:00 01/14/17 08:59 12/16/16 17:58 Gabapentin (Neurontin) 600 mg QHS ORAL 12/14/16 21:00 01/13/17 20:59 12/15/16 21:02 Insulin Aspart (NovoLOG) BEFORE MEALS AND HS SUBQ 12/14/16 21:00 01/13/17 20:59 Insulin Detemir (Levemir) 10 units BEDTIME SUBQ 12/14/16 21:00 01/13/17 20:59 Levothyroxine Sodium (Synthroid) 25 mcg DAILY ORAL 12/15/16 09:00 01/14/17 08:59 12/16/16 08:44 Losartan Potassium (Cozaar) 50 mg BID ORAL 12/15/16 09:00 01/14/17 08:59 12/16/16 18:00 Metoprolol Tartrate (Lopressor) 25 mg DAILY ORAL 12/15/16 09:00 01/14/17 08:59 12/16/16 08:45 Metoprolol Tartrate (Lopressor) 50 mg BEDTIME ORAL 12/14/16 21:00 01/13/17 20:59 12/15/16 21:02 Ondansetron HCl (Zofran) 4 mg Q4HR PRN IVP Nausea & Vomiting 12/14/16 20:00 01/13/17 19:59 Sevelamer Carbonate (Renvela) 1,600 mg THREE TIMES A DAY ORAL 12/15/16 09:00 01/14/17 08:59 12/16/16 17:58 Vitamin B Complex/ Vit C/Folic Acid (Nephrovite) 1 tab DAILY ORAL 12/15/16 09:00 01/14/17 08:59 12/16/16 08:44 Objective Narrative MRI Abdomen no Contrast Impression: Small filling defect in the gallbladder fundus. Suspect this represents a small polyp, although could represent a small stone Trace ascites Right-sided pleural effusion and right basilar atelectasis and/or consolidation Mildly ectatic pancreatic duct, significance uncertain Bilateral renal cysts US ABD Impression: Mild ascites Questionable non-shadowing gallstones Mildly thickened gallbladder wall. Probably related to the process at is causing ascites, but acute cholecystitis as etiology of this cannot be ruled out. Consider nuclear medicine hepatobiliary scan if there is high clinical suspicion Right renal hypoechoic focus with calcified hartley. On CT scan of March 2016, this demonstrated central fluid attenuation, so is probably a cyst with calcified hartley Left renal cyst Left renal sinus hyperechoic foci, demonstrated on prior CT to represent small calculi Assessment/Plan Problem List: (1) Nausea & vomiting ICD Codes: R11.2 - Nausea with vomiting, unspecified SNOMED: 51550721 (2) ESRD (end stage renal disease) on dialysis ICD Codes: N18.6 - End stage renal disease; Z99.2 - Dependence on renal dialysis SNOMED: 614510850 (3) DM (diabetes mellitus) ICD Codes: E11.9 - Type 2 diabetes mellitus without complications SNOMED: 17900377 (4) HTN (hypertension) ICD Codes: I10 - Essential (primary) hypertension SNOMED: 61612216 (5) Anemia ICD Codes: D64.9 - Anemia, unspecified SNOMED: 360707740 (6) Hypothyroidism ICD Codes: E03.9 - Hypothyroidism, unspecified SNOMED: 17608451 (7) Hyperkalemia ICD Codes: E87.5 - Hyperkalemia SNOMED: 54158933 Assessment/Plan Will continue HD GI following Monitor lytes - correct with HD Monitor H&H, transfuse PRN BP control Zeinab West N.P. Dec 16, 2016 21:21
[2016-12-16] MEDS: Metoprolol 50mg tab ORAL SCH (22:10)
[2016-12-16] MEDS: Levemir Flexpen SUBQ SCH (22:11)
[2016-12-17] VITALS: BP 149/59
[2016-12-17 04:00] VITALS: BP 144/68
[2016-12-17] MEDS: NovoLOG Insulin Flexpen SUBQ SCH ×3 (06:23→16:30)
[2016-12-17 07:30] LABS: BASOPHILS % (AUTO) 1.6 % (0.0-2.0); EOSINOPHILS % (AUTO) 4.9 % (0.0-3.0); LYMPHOCYTES % (AUTO) 11.4 % (20.0-45.0); MEAN CORPUSCULAR HGB CONC 31.2 G/DL (32.0-36.0); MEAN CORPUSCULAR VOLUME 93 FL (80-99); MEAN PLATELET VOLUME 6.7 FL (6.5-10.1); MONOCYTES % (AUTO) 9.8 % (1.0-10.0); NEUTROPHILS % (AUTO) 72.3 % (45.0-75.0); PLATELET COUNT 258 K/UL (150-450); RED BLOOD COUNT 3.53 M/UL (4.20-5.40); RED CELL DISTRIBUTION WIDTH 14.4 % (11.6-14.8); WHITE BLOOD COUNT 12.6 K/UL (4.8-10.8)
[2016-12-17 07:53] LABS: CALCIUM 9.3 mg/dL (8.6-10.2); CREATININE 7.3 mg/dL (0.5-0.9); GLOMERULAR FILTRATION RATE 6.8 mL/min (>60); POTASSIUM 4.7 mEQ/L (3.4-4.9)
[2016-12-17 08:28] VITALS: BP 144/58
[2016-12-17] MEDS: Losartan 50mg tab ORAL SCH ×2 (09:00→18:00)
[2016-12-17] MEDS: Metoprolol 25mg tab ORAL SCH (09:00)
[2016-12-17] MEDS: Eliquis 2.5mg tablet ORAL SCH ×2 (09:33→18:59)
[2016-12-17] MEDS: Levothyroxine 25mcg tab ORAL SCH (09:33)
[2016-12-17] MEDS: Nephrovite tab ORAL SCH (09:33)
[2016-12-17 11:25] VITALS: BP 144/62
--- NOTE | 2016-12-17 13:08 | General Progress Note ---
Assessment/Plan Problem List: (1) elevated ALP (2) ESRD (end stage renal disease) on dialysis ICD Codes: N18.6 - End stage renal disease; Z99.2 - Dependence on renal dialysis SNOMED: 364812206 (3) DM (diabetes mellitus) ICD Codes: E11.9 - Type 2 diabetes mellitus without complications SNOMED: 50494906 (4) HTN (hypertension) ICD Codes: I10 - Essential (primary) hypertension SNOMED: 90786277 (5) Anemia ICD Codes: D64.9 - Anemia, unspecified SNOMED: 226359924 Assessment/Plan stable H&H MRI reviewed may need out patient EGD and colonoscopy fu ALP FU AMA Subjective ROS Limited/Unobtainable: Yes Allergies: Coded Allergies: NSAIDS (NON-STEROIDAL ANTI-INFLAMMA (Verified Allergy, Mild, 01/30/16) Uncoded Allergies: NSAIDS (Allergy, Unknown, 03/15/16) Subjective no event Objective Last 24 Hour Vital Signs Date Time Temp Pulse Resp B/P Pulse Ox O2 Delivery O2 Flow Rate FiO2 12/17/16 11:25 98.0 61 19 144/62 96 Room Air 12/17/16 09:00 61 144/58 12/17/16 09:00 144/58 12/17/16 09:00 61 144/58 12/17/16 08:28 97.9 61 20 144/58 99 Room Air 12/17/16 04:00 97.7 60 18 144/68 97 Room Air 12/17/16 00:00 98.2 60 17 149/59 97 Room Air 12/16/16 22:10 65 147/56 12/16/16 19:00 98.2 65 20 147/56 90 Room Air 12/16/16 18:00 150/65 12/16/16 16:00 98.1 63 20 150/65 91 Room Air Intake and Output 12/16/16 12/17/16 19:00 07:00 Intake Total 200 ml 360 ml Output Total 0 ml Balance 200 ml 360 ml Intake Oral 200 ml 360 ml Output Urine Total 0 ml Laboratory Tests 12/17/16 06:05: White Blood Count 12.6H, Red Blood Count 3.53L, Hemoglobin 10.2L, Hematocrit 32.7L, Mean Corpuscular Volume 93, Mean Corpuscular Hemoglobin 29.0, Mean Corpuscular Hemoglobin Concent 31.2L, Red Cell Distribution Width 14.4, Platelet Count 258, Mean Platelet Volume 6.7, Neutrophils (%) (Auto) 72.3, Lymphocytes (%) (Auto) 11.4L, Monocytes (%) (Auto) 9.8, Eosinophils (%) (Auto) 4.9H, Basophils (%) (Auto) 1.6, Sodium Level 138, Potassium Level 4.7, Chloride Level 90L, Carbon Dioxide Level 31H, Anion Gap 17H, Blood Urea Nitrogen 46H, Creatinine 7.3H, Estimat Glomerular Filtration Rate 6.8, Glucose Level 74, Calcium Level 9.3, Gamma Glutamyl Transpeptidase 386H, Anti-Mitochondrial Antibody [Pending] Height (Feet): 5 Height (Inches): 7.00 Weight (Pounds): 190 General Appearance: no apparent distress EENT: normal ENT inspection Neck: supple Cardiovascular: normal rate Respiratory/Chest: decreased breath sounds Abdomen: normal bowel sounds, non tender, soft Extremities: non-tender ESTRELLA CALVILLO Dec 17, 2016 13:08
[2016-12-17] MEDS ORDERED: Tubing IV Secondary IV ONE (15:07)
[2016-12-17 16:00] VITALS: BP 127/87
[2016-12-17 18:00] VITALS: BP 127/87
--- NOTE | 2016-12-17 21:18 | Progress Note ---
PROGRESS NOTE VERSUS DISCHARGE SUMMARY SUBJECTIVE: The patient is an elderly female who is currently doing better. Nausea and vomiting have improved. The patient is tolerating diet. OBJECTIVE: VITAL SIGNS: Blood pressure is 160/90, pulse 70, and respirations 18. SKIN: Good skin turgor. HEENT: Exam is head, NAD. CHEST: Bilaterally clear. CARDIOVASCULAR: Regular rhythm. No gallop. No murmur. ABDOMEN: Soft. Positive bowel sounds. EXTREMITIES: CCE. NEUROLOGICAL: No focal deficit. ASSESSMENT: 1. Abdominal pain. 2. Nausea and vomiting. 3. Dehydration. 4. End-stage renal disease. 5. Diabetes. PLAN: Currently continue current treatment. The patient is stable to be discharged. DISCHARGE DIAGNOSES: 1. Nausea and vomiting. 2. Dehydration. 3. Diabetes. 4. Hypertension. ACTIVITY AND DIET: Two-gram sodium, 1800-calorie renal diet. Activity, as tolerated. DISCHARGE MEDICATIONS: The patient is going to be continued on Protonix. Continue pain medication. Continue sliding scale and Accu-Chek. Discussed with Dr. Bhatti who is on gastrointestinal consult. Mal Dey M.D. DR: ALFONSO JOB#: [id number] CC:
--- NOTE | 2016-12-18 16:18 | Discharge Summary ---
Discharge Summary Hospital Course Date of Admission Dec 14, 2016 at 14:45 Date of Discharge Dec 17, 2016 at 19:30 Admitting Diagnosis fluid overload, gastroenteritis HPI Nakia Ace Ulysses Farley is a 66 year old female who was admitted on Dec 14, 2016 at 14:45 for Fluid Overload,Gastroenteritis Hospital Course [id number] Discharge Discharge Disposition Patient was discharged to SNF/Subacute Facility(03) Discharge Diagnoses: Alix Michaels NP Dec 18, 2016 16:18
--- NOTE | 2016-12-19 00:18 | Discharge Summary 2 SIG ---
DATE OF ADMISSION: 12/14/2016 DATE OF DISCHARGE: 12/17/2016 CONSULTANTS: 1. Ruben Bhatti M.D. 2. Tono Trevizo M.D. BRIEF HOSPITAL COURSE: The patient is a 66-year-old female who came to emergency room for recurrent nausea, vomiting, and abdominal pain. She was found to have possible urinary tract infection and was admitted to medical floor and was given IV antibiotics and on Zofran p.r.n. She was seen by GI service. Lipase was negative. Abdominal ultrasound showed mild ascites with a questionable nonshadowing gallstone and mildly thickened gallbladder wall. Abdominal MRI was done and showed small filling defects in the gallbladder fundus. Dr. Trevizo was also consulted. The patient has end-stage renal disease and is on hemodialysis. Inpatient hemodialysis was done. The patient was eventually discharged home. Nausea and vomiting improved and tolerating diet. FINAL DIAGNOSES: 1. Nausea and vomiting, possible gastroenteritis. 2. Hypoalbuminemia. 3. Anemia. 4. Dehydration. 5. End-stage renal disease. 6. Diabetes. 7. Hypothyroidism. 8. Hyperkalemia. Mal Dey M.D. I have been assigned to dictate discharge summary on this account and I was not involved in the patient's management. Alix Michaels N.P. DR: CHRITSEN JOB#: [id number] CC:
== END 2016-12-17 19:30 | DRG 640 ==
LOC: ENRESERVTM → ENRESERVDT → EMR 12:50 → 4E 14:45 → EDBEDREQ 15:58
PROC: 5A1D60Z (ICD-10-PCS; principal; 2016-12-15)
DX: E86.0 Dehydration (principal); N18.6 End stage renal disease; K52.9 Noninfective gastroenteritis and colitis, unspecified; R18.8 Other ascites; E11.40 Type 2 diabetes mellitus with diabetic neuropathy, unspecified; I12.0 Hypertensive chronic kidney disease with stage 5 chronic kidney disease or end stage renal disease; E88.09 Other disorders of plasma-protein metabolism, not elsewhere classified; E87.79 Other fluid overload; D64.9 Anemia, unspecified; Z99.2 Dependence on renal dialysis; E03.9 Hypothyroidism, unspecified; E87.5 Hyperkalemia; Z88.6 Allergy status to analgesic agent; F32.9 Major depressive disorder, single episode, unspecified; Z66 Do not resuscitate
CPT/HCPCS: 36415; 74181; 76700; 80048; 80053; 82550; 82553; 82607; 82728; 82746; 82962; 82977; 83540; 83550; 83690; 84439; 84443; 84484; 85025; 85044; 85610; 85730; 86256; J1815; J2405; S5561

== ENCOUNTER 2020-08-05 15:25 | Inpatient (IN) | payer MEDICAID, MEDICARE ==
[~2020-08-05] VITALS: Ht 170.2 cm; Wt 72.6 kg
[~2020-08-05 15:25] MED LIST changes: +AMITRIPTYLINE H10 MG ORAL; +AMLODIPINE BESY10 MG ORAL; +CATAPRES0.1 MG ORAL; +ELIQUIS2.5 MG PO; +FUROSEMIDE20 M1 ORAL; +HUMULIN R100 UNIT/1 SUBQ; +LEVEMIR100 UNIT/1 SUBQ; +LOSARTAN POTASS50 MG ORAL; +METOPROLOL TART50 M1 ORAL; +NEPHROVITE1 TAB ORAL; +RENVELA0.8 GM ORAL; +RENVELA800 MG ORAL; +VITAMIN D250000 UNI1 ORAL
[2020-08-05 16:00] VITALS: BP 182/89
--- NOTE | 2020-08-05 16:00 | NUR ---
ED Nurse Note: Pt arrived on wheelchair from home c/o SOB and bilateral lower ext swelling. Respirations even and unlabored on room air. HR anton @ 56 on the monitor. BP in the 180s systolic. O2 saturation 93% on room air. A+Ox4, speaking in complete sentences. Right upper arm AV fistula noted.
--- NOTE | 2020-08-05 16:18 | Emergency Room Report ---
History of Present Illness General Chief Complaint: General Complaint Present Illness HPI 70-year-old female with history of CHF and end-stage renal disease on dialysis here with lower extremity swelling and shortness of breath. Patient says that she received a full dialysis session yesterday without any difficulties. Says that she has had worsening lower extremity swelling and shortness of breath for the past week. Says she occasionally still makes urine. No fevers, chills, chest pain, palpitations, back pain, abdominal pain, nausea, vomiting, diarrhea, dysuria, hematuria. She has had a mild dry cough. Allergies: Coded Allergies: NSAIDS (NON-STEROIDAL ANTI-INFLAMMA (Verified Allergy, Mild, 01/30/16) Uncoded Allergies: NSAIDS (Allergy, Unknown, 03/15/16) COVID-19 Screening Contact w/high risk pt: No Experienced COVID-19 symptoms?: No COVID-19 Testing performed COREMAKER: No Nursing Documentation-PMH Past Medical History: No History, Except For Hx Hypertension: Yes Hx Diabetes: Yes Hx Cancer: No Hx Gastrointestinal Problems: Yes - GASTROPARESIS Hx Dialysis: Yes Hx Neurological Problems: Yes - Encephalopathy Hx Weakness: Yes Review of Systems All Other Systems: negative except mentioned in HPI Physical Exam Vital Signs Date Time Temp Pulse Resp B/P (MAP) Pulse Ox O2 Delivery O2 Flow Rate FiO2 08/05/20 15:31 96.8 62 15 168/70 (102) 97 Room Air Sp02 EP Interpretation: reviewed, normal General Appearance: no apparent distress, alert, non-toxic Head: normocephalic, atraumatic Eyes: bilateral eye normal inspection, bilateral eye PERRL ENT: hearing grossly normal, normal pharynx, no angioedema, normal voice Neck: full range of motion, supple/symm/no masses Respiratory: chest non-tender, lungs clear, normal breath sounds, speaking full sentences Cardiovascular #1: regular rate, rhythm, no edema Cardiovascular #2: 2+ carotid (R), 2+ carotid (L), 2+ radial (R), 2+ radial (L), 2+ dorsalis pedis (R), 2+ dorsalis pedis (L) Gastrointestinal: normal bowel sounds, non tender, soft, non-distended, no guarding, no rebound Rectal: deferred Genitourinary: normal inspection, no CVA tenderness Musculoskeletal: back normal, normal range of motion, gait/station normal, non-tender, other - Right upper extremity dialysis fistula in place with palpable thrill without any surrounding erythema or induration or active bleeding. 3+ lower extremity edema bilaterally distal to the knees Neurologic: alert, motor strength/tone normal, oriented x3, sensory intact, responsive, speech normal Psychiatric: judgement/insight normal, memory normal, mood/affect normal, no suicidal/homicidal ideation Lymphatic: no adenopathy Medical Decision Making Diagnostic Impression: Primary Impression: CHF (congestive heart failure) Additional Impressions: Shortness of breath CHF exacerbation Cardiomegaly ESRD (end stage renal disease) on dialysis ER Course Laboratory Tests Test 08/05/20 16:00 White Blood Count 8.2 K/UL (4.8-10.8) Red Blood Count 4.03 M/UL (4.20-5.40) L Hemoglobin 12.5 G/DL (12.0-16.0) Hematocrit 40.1 % (37.0-47.0) Mean Corpuscular Volume 100 FL (80-99) H Mean Corpuscular Hemoglobin 31.0 PG (27.0-31.0) Mean Corpuscular Hemoglobin Concent 31.1 G/DL (32.0-36.0) L Red Cell Distribution Width 13.9 % (11.6-14.8) Platelet Count 156 K/UL (150-450) Mean Platelet Volume 8.3 FL (6.5-10.1) Neutrophils (%) (Auto) 75.3 % (45.0-75.0) H Lymphocytes (%) (Auto) 8.8 % (20.0-45.0) L Monocytes (%) (Auto) 8.8 % (1.0-10.0) Eosinophils (%) (Auto) 5.1 % (0.0-3.0) H Basophils (%) (Auto) 1.9 % (0.0-2.0) Sodium Level 138 MMOL/L (136-145) Potassium Level 4.8 MMOL/L (3.5-5.1) Chloride Level 104 MMOL/L (98-107) Carbon Dioxide Level 28 MMOL/L (21-32) Anion Gap 6 mmol/L (5-15) Blood Urea Nitrogen 25 mg/dL (7-18) H Creatinine 6.4 MG/DL (0.55-1.30) H Estimated Glomerular Filtration Rate 7.9 mL/min (>60) Glucose Level 208 MG/DL (74-106) H Calcium Level 9.3 MG/DL (8.5-10.1) Total Bilirubin Pending Aspartate Amino Transferase (AST) Pending Alanine Aminotransferase (ALT) Pending Alkaline Phosphatase Pending Troponin I 0.030 ng/mL (0.000-0.056) Pro-B-Type Natriuretic Peptide Pending Total Protein Pending Albumin Pending Globulin Pending Chest x-ray: Indication shortness of breath: Cardiomegaly, pulmonary vascular congestion diffusely with bilateral small pleural effusions. No bony abnormalities. No free air under the diaphragm EKG: NSR, no ischemia, intervals WNL. No ectopy. Normal axis. Rate 59 bpm Rhythm strip: patient monitored for arrhythmias - no malignant dysrhythmias, runs of PVCs, nor pauses noted 70-year-old female with history of CHF and end-stage renal disease on dialysis here with shortness of breath and lower extremity edema. Patient appear to be fluid overloaded on physical examination and from findings on her chest x-ray as noted above. Patient was given 40 mg of Lasix IV in the emergency department. She says that she still does occasionally make urine. She was in no acute distress in the emergency room and had an oxygen saturation in the mid 90s throughout her stay room air. Otherwise normal vital signs. CBC and CMP were largely unremarkable and only showed evidence of her end-stage renal disease but no evidence of any electrolyte abnormalities. Troponin was within normal limits. BNP highly elevated confirming suspicion for CHF exacerbation. Patient admitted to telemetry in stable condition. Last Vital Signs Date Time Temp Pulse Resp B/P (MAP) Pulse Ox O2 Delivery O2 Flow Rate FiO2 08/05/20 15:31 96.8 62 15 168/70 (102) 97 Room Air Chance Villatoro M.D. Aug 05, 2020 16:18
[2020-08-05 16:55] LABS: ANION GAP 6 mmol/L (5-15); BLOOD UREA NITROGEN 25 mg/dL (7-18); CALCIUM 9.3 MG/DL (8.5-10.1); CARBON DIOXIDE 28 MMOL/L (21-32); CHLORIDE 104 MMOL/L (98-107); CREATININE 6.4 MG/DL (0.55-1.30); POTASSIUM 4.8 MMOL/L (3.5-5.1); SODIUM 138 MMOL/L (136-145)
[2020-08-05 16:57] LABS: BASOPHILS % (AUTO) 1.9 % (0.0-2.0); EOSINOPHILS % (AUTO) 5.1 % (0.0-3.0); HEMATOCRIT 40.1 % (37.0-47.0); HEMOGLOBIN 12.5 G/DL (12.0-16.0); LYMPHOCYTES % (AUTO) 8.8 % (20.0-45.0); MEAN CORPUSCULAR VOLUME 100 FL (80-99); MONOCYTES % (AUTO) 8.8 % (1.0-10.0); NEUTROPHILS % (AUTO) 75.3 % (45.0-75.0); PLATELET COUNT 156 K/UL (150-450); RED BLOOD COUNT 4.03 M/UL (4.20-5.40); RED CELL DISTRIBUTION WIDTH 13.9 % (11.6-14.8); WHITE BLOOD COUNT 8.2 K/UL (4.8-10.8)
--- NOTE | 2020-08-05 17:15 | NUR ---
ED Nurse Note: [place] [facility] [place]
[2020-08-05 17:21] LABS: ALANINE AMINOTRANSFERASE 17 U/L (12-78); ALBUMIN 3.1 G/DL (3.4-5.0); ALBUMIN/GLOBULIN RATIO 1.1 (1.0-2.7); ALKALINE PHOSPHATASE 170 U/L (46-116); ASPARTATE AMINO TRANSFERASE 13 U/L (15-37); BILIRUBIN,TOTAL 0.5 MG/DL (0.2-1.0)
--- NOTE | 2020-08-05 17:37 | Diagnostic Imaging Report ---
Indication: Shortness of breath Technique: One view of the chest Comparison: 03/21/2016 Findings: The heart is enlarged. Interim removal of previously demonstrated right jugular central venous catheter. Interim development of bilateral interstitial and airspace edema and right-sided pleural fluid. A venous stent is seen in the right axilla Impression: Congestive heart failure, developing since prior exam 03/21/2016
--- NOTE | 2020-08-05 18:24 | NUR ---
ED Nurse Note: report given to ELAYNE Calixto on 2E
--- NOTE | 2020-08-05 18:45 | NUR ---
ED Nurse Note: Pt transferred safely to 2E on the monitor. Pt sent with all belongings.
--- NOTE | 2020-08-05 19:10 | NUR ---
NURSE NOTES: Report received from Jojo HOLLY. Pt alert and oriented. Talkative. Reports slight headache. Tele box applied Vitalis as follows 188/81, 60bpm, 94% on RA, 97.7. Per charge nurse Troy HOLLY, inform noc shift about contacting Dr. Dey. This is a known Dialysis pt and she has to be dialyzed tomorrow.
--- NOTE | 2020-08-05 19:20 | NUR ---
NURSE NOTES: RECEIVED REPORT FROM ELAYNE DE LA GARZA. PT IN BED AWAKE, ALERT/ORIENTED X4, ABLE TO MAKE NEEDS KNOWN. NO RESP DISTRESS NOTED. CARDICA MONITOR IN PLACE. BELONGINGS LIST CHECKED, BODY CHECK DONE. LEFT HAND 22G IV SALINE LOCKED, NO S/S INFILTRATION. NOTED. BED IN LOW POSITION &LOCKED, SIDE RAILS UP X2, BED ALARM ON. CALL LIGHT WITH IN REACH. EXPLAINED TO PAT USE CALL LIGHT WHEN ASSISTANCE IS NEED. WILL CALL DR. PATEL FOR ADMISSION ORDERS.
--- NOTE | 2020-08-05 19:32 | Nephrology Progress Note ---
Subjective Allergies: Coded Allergies: NSAIDS (NON-STEROIDAL ANTI-INFLAMMA (Verified Allergy, Mild, 01/30/16) Uncoded Allergies: NSAIDS (Allergy, Unknown, 03/15/16) Subjective I follow patient at [facility]. Will arrange and mange her dialysis while at [facility] Objective Last 24 Hour Vital Signs Date Time Temp Pulse Resp B/P (MAP) Pulse Ox O2 Delivery O2 Flow Rate FiO2 08/05/20 18:45 97.6 63 18 175/79 96 Room Air 08/05/20 18:16 184/82 08/05/20 16:00 58 15 Room Air 08/05/20 16:00 97.1 58 18 182/89 93 Room Air 08/05/20 15:31 96.8 62 15 168/70 (102) 97 Room Air Laboratory Tests 08/05/20 16:00: White Blood Count 8.2, Red Blood Count 4.03L, Hemoglobin 12.5, Hematocrit 40.1, Mean Corpuscular Volume 100H, Mean Corpuscular Hemoglobin 31.0, Mean Corpuscular Hemoglobin Concent 31.1L, Red Cell Distribution Width 13.9, Platelet Count 156, Mean Platelet Volume 8.3, Neutrophils (%) (Auto) 75.3H, Lymphocytes (%) (Auto) 8.8L, Monocytes (%) (Auto) 8.8, Eosinophils (%) (Auto) 5.1H, Basophils (%) (Auto) 1.9, Sodium Level 138, Potassium Level 4.8, Chloride Level 104, Carbon Dioxide Level 28, Anion Gap 6, Blood Urea Nitrogen 25H, Creatinine 6.4H, Estimat Glomerular Filtration Rate 7.9, Glucose Level 208H, Calcium Level 9.3, Total Bilirubin 0.5, Aspartate Amino Transf (AST/SGOT) 13L, Alanine Aminotransferase (ALT/SGPT) 17, Alkaline Phosphatase 170H, Troponin I 0.030, Pro-B-Type Natriuretic Peptide > 59273P, Total Protein 5.8L, Albumin 3.1L, Globulin 2.7, Albumin/Globulin Ratio 1.1 Height (Feet): 5 Height (Inches): 7.00 Weight (Pounds): 160 Nikolay Burris MD Aug 05, 2020 19:32
--- NOTE | 2020-08-05 20:30 | NUR ---
NURSE NOTES: RECEIVED ADMISSION ORDERS WILL NOTE & CARRY OUT.
[2020-08-05] MEDS ORDERED: HYDROcodone/Acetamin 10/325 tab ORAL PRN (21:30)
[2020-08-05] MEDS: NovoLOG Insulin Flexpen SUBQ SCH (22:32)
[2020-08-05] MEDS: Levemir Flexpen SUBQ SCH (23:17)
[2020-08-06] VITALS (8 sets, daily range): BP systolic 152–193; BP diastolic 53–78
--- NOTE | 2020-08-06 00:15 | NUR ---
NURSE NOTES: NOTED PT B/P OF 193/76 PRN CLONIDINE GIVEN WILL RECHECK B/P
--- NOTE | 2020-08-06 01:00 | NUR ---
NURSE NOTES: B/P RECHECK 159/67 NO C/O HEADACHE OR ANY DISCOMFORT AT THIS TIME
--- NOTE | 2020-08-06 02:26 | NUR ---
NURSE NOTES: SPOKE WITH JOSE FROM [facility] TO SCHEDULE PT FOR DIALYSIS TODAY PER DR COHN
--- NOTE | 2020-08-06 06:00 | NUR ---
NURSE NOTES: NOTIFIED DR ELLIOTT REGARDING PTS B/P 186/70
[2020-08-06] MEDS: Levothyroxine 25mcg tab ORAL SCH (06:18)
[2020-08-06] MEDS: NovoLOG Insulin Flexpen SUBQ SCH ×4 (06:20→21:50)
--- NOTE | 2020-08-06 06:30 | NUR ---
NURSE NOTES: DR ELLIOTT CALLED BACK WITH NEW ORDERS NOTED & CARRIED OUT.
--- NOTE | 2020-08-06 07:30 | NUR ---
NURSE HAND-OFF REPORT: Important Events on Shift:ADMITTED/ PT HAD EPISODE OF HTN DR MADE AWARE WITH NEW ORDERS NOTED & CARRIED OUT. Patient Status: STABLE Diet: Pending Orders: [] Pending Results/Labs:[] Pending MD notification:[] Latest Vital Signs: Temperature 98.3 , Pulse 53 , B/P 198 /68 , Respiratory Rate 20 , O2 SAT 96 , Room Air, O2 Flow Rate . Vital Sign Comment: [] EKG Rhythm: SB ITH FIRST DEGREE HEART BLOCK Rhythm change?: N MD Notified?: - MD Response: Latest Peterson Fall Score: 45 Fall Risk: High Risk Safety Measures: Call light Within Reach, Bed Alarm Zone 1, Side Rails Side Rails x2, Bed position Low and Locked. Fall Precautions: Yellow Socks Yellow Gown Door Sign Patient Fall Education Report given to ELAYNE OGDEN.
--- NOTE | 2020-08-06 07:32 | NUR ---
NURSE NOTES: Received hand-off report from ELAYNE Foley. Patient in stable condition, alert and oriented x4, able to follow commands, bed alarm on, fall education provided, call light within reach. Breathing even and unlabored, registered nurse cardiac on, IV site intact, bed in lowest and locked position, call light within reach.
--- NOTE | 2020-08-06 08:15 | NUR ---
NURSE NOTES: Per dialysis nurseJose RN, patient is not to receive any medications that would affect the BP. Noted and will carry out.
[2020-08-06 08:52] LABS: BASOPHILS % (AUTO) 1.5 % (0.0-2.0); EOSINOPHILS % (AUTO) 6.5 % (0.0-3.0); HEMOGLOBIN 13.1 G/DL (12.0-16.0); LYMPHOCYTES % (AUTO) 9.9 % (20.0-45.0); MEAN CORPUSCULAR VOLUME 103 FL (80-99); MONOCYTES % (AUTO) 8.8 % (1.0-10.0); NEUTROPHILS % (AUTO) 73.3 % (45.0-75.0); PLATELET COUNT 174 K/UL (150-450); RED BLOOD COUNT 4.17 M/UL (4.20-5.40); RED CELL DISTRIBUTION WIDTH 13.5 % (11.6-14.8)
[2020-08-06 09:13] LABS: CALCIUM 9.2 MG/DL (8.5-10.1); CREATININE 6.9 MG/DL (0.55-1.30)
[2020-08-06] MEDS: Eliquis 2.5mg tablet ORAL SCH ×2 (09:21→18:28)
[2020-08-06] MEDS: Nephrovite tab (Rena-Vite) ORAL SCH (09:21)
--- NOTE | 2020-08-06 09:44 | NUR ---
NURSE NOTES: Notified Dr. Dey regarding SB (56 pulse rate) with 1st-degree AVB. Patient in stable condition, vital signs WNL, no changes in mentation and condition.
--- NOTE | 2020-08-06 09:45 | Consultation ---
DATE OF CONSULTATION: 08/06/2020 REASON FOR CONSULTATION: 1. End-stage renal disease, on hemodialysis. 2. Shortness of breath. 3. volume overload. HISTORY OF PRESENT ILLNESS: The patient is a 70-year-old female brought to the emergency room for further evaluation and care of lower extremity edema and shortness of breath. The patient is compliant with her hemodialysis sessions every Wednesday, , and Wednesday. She has been doing otherwise relatively well. She states that over the last few days, she has progressively become more swollen and short of breath. She currently denies any chest pain, nausea, vomiting, or diarrhea. ALLERGIES: NSAIDs. PAST MEDICAL HISTORY: 1. End-stage renal disease on hemodialysis. 2. Anemia of chronic kidney disease. 3. Diabetes mellitus. 4. Hypertension. 5. Secondary hyperparathyroidism FAMILY HISTORY: Positive for hypertension and diabetes. PAST SURGICAL HISTORY: AV fistula. REVIEW OF SYSTEMS: NEUROLOGIC: The patient denies headache, change in vision, syncope, or presyncopal episodes. CARDIOVASCULAR: No current chest pain, palpitations, or angina. PULMONARY: Mild shortness of breath, nonproductive cough. GASTROINTESTINAL/GENITOURINARY: No change in urinary or bowel habits. No nausea, vomiting, or diarrhea. ENDOCRINE: No night sweats, fevers, or chills. MUSCULOSKELETAL: The patient is feeling weak, tired, and fatigued. LABORATORY AND DIAGNOSTIC DATA: Labs dated August 05, 2020, hemoglobin 12.5, white cell count 8.2, and platelet count 156. Sodium 138, potassium 4.8, BUN 25, creatinine 6.4. PHYSICAL EXAMINATION: VITAL SIGNS: Blood pressure 198/68, pulse 60, temperature 98.3. GENERAL: The patient awake, alert, not in distress. HEENT: Extraocular muscles intact. Oropharyngeal mucosa is clear and dry. CARDIOVASCULAR: S1, S2. No rubs or gallops. PULMONARY: Mild upper rhonchi with fair airway movement in all lung carmichael. ABDOMEN: Nondistended and nontender. EXTREMITIES: A 1+ edema. ASSESSMENT AND PLAN: 1. End-stage renal disease, on hemodialysis. The patient will undergo hemodialysis today. We will also re-evaluate tomorrow for extra hemodialysis session with ultrafiltration. 2. Hypertension, not at goal. We will adjust medications as deemed appropriate. 3. Secondary hyperparathyroidism. We will continue phosphorus binder. 4. Shortness of breath. We will defer management to Pulmonary. We will continue ultrafiltration with hemodialysis. 5. Diabetes mellitus per primary care physician. Nikolay Burris MD DR: Jay JOB#: [id number] CC:
--- NOTE | 2020-08-06 12:00 | NUR ---
NURSE NOTES: Patient refused to eat and so insulin was not administered.
--- NOTE | 2020-08-06 13:08 | General Progress Note ---
Subjective Constitutional: Reports: malaise, weakness HEENT: Reports: no symptoms Cardiovascular: Reports: chest pain, lightheadedness Respiratory: Reports: cough, SOB with excertion Genitourinary: Reports: no symptoms Neurologic/Psychiatric: Reports: numbness, weakness Endocrine: Reports: no symptoms Hematologic/Lymphatic: Reports: no symptoms, anemia, easy bleeding, easy bruising, other Allergies: Coded Allergies: NSAIDS (NON-STEROIDAL ANTI-INFLAMMA (Verified Allergy, Mild, 01/30/16) Uncoded Allergies: NSAIDS (Allergy, Unknown, 03/15/16) Subjective feels better Objective Last 24 Hour Vital Signs Date Time Temp Pulse Resp B/P (MAP) Pulse Ox O2 Delivery O2 Flow Rate FiO2 08/06/20 11:59 63 189/69 08/06/20 09:19 189/69 (109) 95 08/06/20 08:00 97.5 59 18 184/66 (105) 94 08/06/20 08:00 56 08/06/20 06:48 198/68 08/06/20 04:00 98.3 60 20 158/65 (96) 96 08/06/20 04:00 53 08/06/20 00:39 193/68 08/06/20 00:00 55 08/06/20 00:00 98.1 93 20 193/76 (115) 08/05/20 21:00 Room Air 08/05/20 20:28 Room Air 08/05/20 20:00 56 08/05/20 18:45 97.6 63 18 175/79 96 Room Air 08/05/20 18:16 184/82 08/05/20 16:00 58 15 Room Air 08/05/20 16:00 97.1 58 18 182/89 93 Room Air 08/05/20 15:31 96.8 62 15 168/70 (102) 97 Room Air Intake and Output 08/05/20 08/06/20 19:00 07:00 Intake Total 0 ml 200 ml Balance 0 ml 200 ml Intake Oral 0 ml 200 ml # Bowel Movements 2 Laboratory Tests 08/05/20 16:00: White Blood Count 8.2, Red Blood Count 4.03L, Hemoglobin 12.5, Hematocrit 40.1, Mean Corpuscular Volume 100H, Mean Corpuscular Hemoglobin 31.0, Mean Corpuscular Hemoglobin Concent 31.1L, Red Cell Distribution Width 13.9, Platelet Count 156, Mean Platelet Volume 8.3, Neutrophils (%) (Auto) 75.3H, Lymphocytes (%) (Auto) 8.8L, Monocytes (%) (Auto) 8.8, Eosinophils (%) (Auto) 5.1H, Basophils (%) (Auto) 1.9, Sodium Level 138, Potassium Level 4.8, Chloride Level 104, Carbon Dioxide Level 28, Anion Gap 6, Blood Urea Nitrogen 25H, Creatinine 6.4H, Estimat Glomerular Filtration Rate 7.9, Glucose Level 208H, Calcium Level 9.3, Total Bilirubin 0.5, Aspartate Amino Transf (AST/SGOT) 13L, Alanine Aminotransferase (ALT/SGPT) 17, Alkaline Phosphatase 170H, Troponin I 0.030, Pro-B-Type Natriuretic Peptide > 59271R, Total Protein 5.8L, Albumin 3.1L, Globulin 2.7, Albumin/Globulin Ratio 1.1 08/05/20 22:09: POC Whole Blood Glucose 152H 08/06/20 06:12: POC Whole Blood Glucose 176H 08/06/20 08:40: White Blood Count 7.0, Red Blood Count 4.17L, Hemoglobin 13.1, Hematocrit 43.0, Mean Corpuscular Volume 103H, Mean Corpuscular Hemoglobin 31.4H, Mean Corpuscular Hemoglobin Concent 30.4L, Red Cell Distribution Width 13.5, Platelet Count 174, Mean Platelet Volume 8.6, Neutrophils (%) (Auto) 73.3, Lymphocytes (%) (Auto) 9.9L, Monocytes (%) (Auto) 8.8, Eosinophils (%) (Auto) 6.5H, Basophils (%) (Auto) 1.5, Sodium Level 139, Potassium Level 5.0, Chloride Level 104, Carbon Dioxide Level 28, Anion Gap 7, Blood Urea Nitrogen 28H, Creatinine 6.9H, Estimat Glomerular Filtration Rate 7.2, Glucose Level 174H, Calcium Level 9.2, Hepatitis B Surface Antigen [Pending] 08/06/20 12:38: POC Whole Blood Glucose [Pending] Height (Feet): 5 Height (Inches): 7.00 Weight (Pounds): 160 General Appearance: alert EENT: PERRL/EOMI Neck: non-tender, supple Cardiovascular: regular rhythm Respiratory/Chest: crackles/rales Extremities: non-tender Edema: severe edema Assessment/Plan Assessment/Plan: 1 chf combined 2 fluid overload 3 htn accelareted 4 dm 5 dm neuropathy 6 weakness 7 depression fluid and salt restriction cardio and nephro consult adjust cardiac meds Keenan Dey MD Aug 06, 2020 13:08
--- NOTE | 2020-08-06 13:45 | Consultation ---
DATE OF CONSULTATION: 08/06/2020 PULMONARY CONSULTATION CONSULTING PHYSICIAN: Bin Ibrahim MD. HISTORY OF PRESENT ILLNESS: This is a 70-year-old female with a history of ESRD on dialysis. She has become more short of breath over the last few days and came to the emergency room. She was seen by Nephrology and plans are noted for hemodialysis. PAST MEDICAL HISTORY: ESRD on dialysis, chronic anemia, diabetes mellitus, hypertension, hyperparathyroidism. PREVIOUS SURGERIES: AV fistula. REVIEW OF SYSTEMS: Denies any headaches, hematemesis, melena, hematochezia, night sweats, or weight loss. PHYSICAL EXAMINATION: GENERAL: Reveals a 70-year-old female. VITAL SIGNS: Blood pressure is 180/70, heart rate 60, respirations are 20, O2 saturation 95% on 2 L of oxygen. HEENT: Unremarkable. CHEST: Shows decreased breath sounds bilaterally. HEART: Normal heart sounds. ABDOMEN: Soft. EXTREMITIES: There is no edema. LABORATORY DATA: Lab testing shows normal CBC. BMP notable for creatinine of 6.9. DIAGNOSTIC STUDIES: X-ray chest obtained yesterday, which shows evidence of pulmonary edema. There is a right jugular central venous catheter. There is a venous stent in the right axilla. IMPRESSION: 1. Pulmonary edema. 2. ESRD on dialysis. DISCUSSION: Agree with urgent hemodialysis. The patient has been seen by Nephrology. We will provide oxygen, pulmonary hygiene. We will follow carefully. Blood pressure control as needed. Bin Ibrahim M.D. DR: TIERA/ANABELA JOB#: [id number] CC:
[2020-08-06] MEDS: Losartan 50mg tab ORAL SCH ×2 (14:08→18:28)
--- NOTE | 2020-08-06 15:44 | History and Physical Report ---
DATE OF ADMISSION: 08/05/2020 This is a late entry. This is a 70-year-old female who was seen last night, dictating H and P now. HISTORY OF PRESENT ILLNESS: This is a 70-year-old who came from home, where she had bilateral leg edema and shortness of breath, generalized weakness, p.o. intake. The patient was found in CHF, fluid overload, was admit on tele. The patient is currently doing better. Still has 1+ edema on the legs. PAST MEDICAL HISTORY: Significant for end-stage renal disease, hypertension, diabetes, diabetic neuropathy, anemia, weight loss. MEDICATIONS: She is taking Norvasc, Lipitor, apixaban, gabapentin, Lasix, insulin, Levemir, levothyroxine, losartan, metoprolol. ALLERGIES: NSAIDs. PHYSICAL EXAMINATION: GENERAL: This is an elderly female, in bed, generalized weakness, complaining of pain on both legs. VITAL SIGNS: Blood pressure on admission was high at 193/68, pulse 60, respirations 20, temperature 98.3. SKIN: Good skin turgor. NECK: Mild to moderate JVD. CHEST: Bilateral scattered crackles and wheezing. CARDIOVASCULAR: Regular rhythm. ABDOMEN: Soft. Positive bowel sounds. EXTREMITIES: 1+ edema, mild tenderness on touch. GENITOURINARY: Deferred. LABORATORY EXAMINATION: White count yesterday 8.2, hemoglobin 13, hematocrit 40, platelets 156. Chemistry panel, glucose was 152. Troponins are 0.30. BNP was high. Her chest x-ray from yesterday showing congestive heart failure developing . ASSESSMENT: 1. CHF, decompensated, combined systolic and diastolic. 2. Bilateral edema. 3. Generalized weakness. 4. Diabetes. 5. Diabetic neuropathy. 6. Weakness. PLAN: We will admit on tele bed. Start Lasix. Consider cardiology consult. Check fluid intake and restriction of salt in diet. Cardiology on pulmonary consult. Mal Dey M.D. DR: ОЛЬГА JOB#: [id number] CC:
--- NOTE | 2020-08-06 16:00 | NUR ---
CASE MANAGEMENT:REVIEW 70 YR OLD FEMALE PRESENTED TO ER CC: SOB. BLE SWELLING PMH: ESRD ON HD SI: CHF EXACERBATION 96.8 56 15 189/69 93% ON RA BNP>87615 BUN+25 CR+6.4 IS: IV LASIX IV HYDRALAZINE COVID SWAB CHEST XRAY : TO TELEMETRY IS: IV LASIX Q12
--- NOTE | 2020-08-06 19:30 | NUR ---
NURSE HAND-OFF REPORT: Important Events on Shift: uncontrolled HTN earlier on the shift, now BP WNL, SCDs bedside waiting on Venous duplex to result Patient Status: full code, stable condition, denies chest pain/pressure at this time Diet: Renal Pending Orders: [] Pending Results/Labs:[] Pending MD notification:[] Latest Vital Signs: Temperature 97.5 , Pulse 64 , B/P 143 /55 , Respiratory Rate 18 , O2 SAT 94 , Room Air, O2 Flow Rate . Vital Sign Comment: [] EKG Rhythm: Sinus Rhythm Rhythm change?: N MD Notified?: Y -Dr. Tiburcio MARTINEZ Response: Order Received& Read Back Latest Peterson Fall Score: 45 Fall Risk: High Risk Safety Measures: Call light Within Reach, Bed Alarm Zone 1, Side Rails Side Rails x2, Bed position Low and Locked. Fall Precautions: Yellow Socks Yellow Gown Door Sign Patient Fall Education Report given to Debra Rodriguez RN.
--- NOTE | 2020-08-06 20:25 | NUR ---
NURSE NOTES: Received patient report from ELAYNE Johnson. patient shows no signs of erythema, infiltration, or bleeding. Patient is AO x4 awake and able to make needs known. Patient has no IV access at the time. RN reported that multiple attempts were done during the day. Attempts were unsuccessful. Patient is on room air and shows no signs of respiratory distress. Dialysis was done today 3L pulled out. Bed is in the lowest position, call light is within reach, side rails up x3. Will continue to monitor.
[2020-08-06] MEDS: Metoprolol Tartrate 50mg tab ORAL SCH (21:45)
[2020-08-06] MEDS: Atorvastatin 20mg tab ORAL SCH (21:45)
[2020-08-06] MEDS: Levemir Flexpen SUBQ SCH (21:51)
--- NOTE | 2020-08-06 22:20 | NUR ---
NURSE NOTES: IV placed on left wrist 24 Gauge. There are no signs of erythema, infiltration, or bleeding. Patent and flushed.
--- NOTE | 2020-08-06 23:44 | Consultation ---
DATE OF CONSULTATION: 08/06/2020 CONSULTING PHYSICIAN: Finn Noonan MD HISTORY OF PRESENT ILLNESS: This is a 70-year-old female with a history of depression, anxiety, hypertension, diabetic mellitus, CHF, end-stage renal disease who has been admitted to the hospital for medical stabilization. Patient is on dialysis. Patient presents with depressed mood, anhedonia, worthlessness, hopelessness, and decreased p.o. intake. Patient was tearful during the evaluation, stated that she has been depressed and has weakness, anhedonia, hopelessness. Thought content, denies any suicidal or homicidal ideation. PAST PSYCHIATRIC HISTORY: Depression, anxiety, not on psychotropic medication. Also decreased appetite and weight loss. No suicide attempt. PAST MEDICAL HISTORY: End-stage renal disease, hypertension, diabetes, neuropathy, anemia. ALLERGIES: NSAIDs. SUBSTANCE ABUSE HISTORY: No history of illicit drug use or alcohol. MENTAL STATUS EXAMINATION: Patient is alert, oriented times self, place, situation. Mood is depressed. Affect is tearful. Thought process is linear and goal oriented. Thought content, negative for suicidal or homicidal ideation. Cognition is intact. Insight and judgment fair. ASSESSMENT: [place] I Major depressive disorder. Anxiety disorder. [place] II Deferred. [place] III End-stage renal disease. [place] IV Low. [place] V 50. PLAN: 1. We will start the patient on Lexapro 10 mg in the morning. 2. Provide the patient with reality orientation and supportive therapy. Finn Noonan M.D. DR: DB JOB#: [id number] CC:
[2020-08-07] VITALS (7 sets, daily range): BP systolic 117–189; BP diastolic 52–71
--- NOTE | 2020-08-07 04:14 | Cardiology Report ---
APPROVED REPORT EKG Measurement Heart [id number] <Conclusion> Suspect arm lead reversal, interpretation assumes no reversal Sinus bradycardia with 1st degree AV block Possible Right ventricular hypertrophy Lateral infarct, age undetermined Abnormal ECG
[2020-08-07] MEDS: Levothyroxine 25mcg tab ORAL SCH (05:55)
[2020-08-07] MEDS: NovoLOG Insulin Flexpen SUBQ SCH ×4 (06:30→20:46)
--- NOTE | 2020-08-07 06:49 | NUR ---
NURSE NOTES: Patient blood sugar was 54. Patient was alert and able to swallow. Gave her 3 apple juices. rechecked blood sugar it went up to 91. Rechecked patients blood sugar again it was 113. Patient is alert and oriented. Asymptomatic.
--- NOTE | 2020-08-07 07:45 | NUR ---
NURSE NOTES: Received patient report from ELAYNE Richardson. Patient is A/A/Ox4 in bed calm and comfortable. patient shows no signs of erythema, infiltration, or bleeding. Patient is A/A/Ox4 and able to make needs known. PIV patent and intact. Patient is on room air and shows no signs of respiratory distress. AV SHUNT on FORTINO bruit and thrill felt. no n/v noted. Bed is in the lowest position, call light is within reach, bed brakes and alarm on mode @ all times. siderails up x3. Will continue to monitor.
--- NOTE | 2020-08-07 07:45 | NUR ---
NURSE HAND-OFF REPORT: Important Events on Shift:[Blood sugar went down to 54. Currently 113] Patient Status: [Full code] Diet: [renal] Pending Orders: [] Pending Results/Labs:[] Pending MD notification:[] Latest Vital Signs: Temperature 97.0 , Pulse 61 , B/P 117 /65 , Respiratory Rate 20 , O2 SAT 94 , Room Air, O2 Flow Rate . Vital Sign Comment: [] EKG Rhythm: Sinus Bradycardia Rhythm change?: N MD Notified?: Garry Dey MD Response: Order Received& Read Back Latest Peterson Fall Score: 45 Fall Risk: High Risk Safety Measures: Call light Within Reach, Bed Alarm Zone 1, Side Rails Side Rails x2, Bed position Low and Locked. Fall Precautions: Yellow Socks Yellow Gown Door Sign Patient Fall Education Report given to [MANOLO Julio].
[2020-08-07] MEDS: Nephrovite tab (Rena-Vite) ORAL SCH (08:36)
[2020-08-07] MEDS: Losartan 50mg tab ORAL SCH ×2 (08:36→17:19)
[2020-08-07] MEDS: Eliquis 2.5mg tablet ORAL SCH ×2 (08:37→17:19)
--- NOTE | 2020-08-07 08:56 | General Progress Note ---
Subjective Allergies: Coded Allergies: NSAIDS (NON-STEROIDAL ANTI-INFLAMMA (Verified Allergy, Mild, 01/30/16) Uncoded Allergies: NSAIDS (Allergy, Unknown, 03/15/16) Subjective feels better c/o nausea/vomiting last night subsided sob Objective Last 24 Hour Vital Signs Date Time Temp Pulse Resp B/P (MAP) Pulse Ox O2 Delivery O2 Flow Rate FiO2 08/07/20 08:36 65 154/62 08/07/20 08:36 154/62 08/07/20 08:36 65 154/62 08/07/20 08:00 97.7 65 18 154/62 (92) 96 08/07/20 04:00 57 08/07/20 04:00 97.0 61 20 117/65 (82) 94 08/07/20 00:00 71 08/07/20 00:00 97.9 55 20 136/52 (80) 97 08/07/20 00:00 58 08/06/20 21:45 70 155/53 08/06/20 21:00 Room Air 08/06/20 20:00 71 08/06/20 20:00 97.9 70 20 155/53 (87) 94 08/06/20 18:28 143/55 08/06/20 17:12 184/69 08/06/20 16:00 64 08/06/20 16:00 97.5 59 18 152/58 (89) 94 08/06/20 14:08 178/73 08/06/20 13:59 178/73 (108) 08/06/20 12:00 180/78 (112) 08/06/20 12:00 70 08/06/20 11:59 63 189/69 08/06/20 09:19 189/69 (109) 95 08/06/20 09:00 59 184/69 08/06/20 09:00 Room Air Intake and Output 08/06/20 08/07/20 19:00 07:00 Intake Total 340 ml 700 ml Output Total 3000 ml Balance -2660 ml 700 ml Intake Oral 340 ml 700 ml Output Hemodialysis UF 3000 ml Laboratory Tests 08/06/20 12:38: POC Whole Blood Glucose [Pending] 08/06/20 16:27: POC Whole Blood Glucose 127H 08/06/20 20:37: POC Whole Blood Glucose 187H 08/07/20 05:45: POC Whole Blood Glucose [Pending] 08/07/20 06:03: POC Whole Blood Glucose 91 08/07/20 06:33: POC Whole Blood Glucose 113H Height (Feet): 5 Height (Inches): 7.00 Weight (Pounds): 160 General Appearance: alert EENT: PERRL/EOMI Neck: supple Cardiovascular: regular rhythm Respiratory/Chest: crackles/rales Abdomen: non tender, soft Extremities: non-tender Edema: mild edema Skin: warm/dry Assessment/Plan Assessment/Plan: 1 chf combined 2 fluid overload 3 htn accelareted better 4 dm 5 dm neuropathy 6 weakness 7 depression 8 n/v better fluid and salt restriction cardio and nephro consult adjust cardiac meds Keenan Dey MD Aug 07, 2020 08:56
--- NOTE | 2020-08-07 09:01 | Pulmonology Progress Note ---
Subjective Interval Events: Doing better; Constitutional: Reports: no symptoms HEENT: Repors: no symptoms Respiratory: Reports: no symptoms Cardiovascular: Reports: no symptoms Allergies: Coded Allergies: NSAIDS (NON-STEROIDAL ANTI-INFLAMMA (Verified Allergy, Mild, 01/30/16) Uncoded Allergies: NSAIDS (Allergy, Unknown, 03/15/16) Objective Last 24 Hour Vital Signs Date Time Temp Pulse Resp B/P (MAP) Pulse Ox O2 Delivery O2 Flow Rate FiO2 08/07/20 08:36 65 154/62 08/07/20 08:36 154/62 08/07/20 08:36 65 154/62 08/07/20 08:00 97.7 65 18 154/62 (92) 96 08/07/20 04:00 57 08/07/20 04:00 97.0 61 20 117/65 (82) 94 08/07/20 00:00 71 08/07/20 00:00 97.9 55 20 136/52 (80) 97 08/07/20 00:00 58 08/06/20 21:45 70 155/53 08/06/20 21:00 Room Air 08/06/20 20:00 71 08/06/20 20:00 97.9 70 20 155/53 (87) 94 08/06/20 18:28 143/55 08/06/20 17:12 184/69 08/06/20 16:00 64 08/06/20 16:00 97.5 59 18 152/58 (89) 94 08/06/20 14:08 178/73 08/06/20 13:59 178/73 (108) 08/06/20 12:00 180/78 (112) 08/06/20 12:00 70 08/06/20 11:59 63 189/69 08/06/20 09:19 189/69 (109) 95 08/06/20 09:00 59 184/69 08/06/20 09:00 Room Air Intake and Output 08/06/20 08/07/20 19:00 07:00 Intake Total 340 ml 700 ml Output Total 3000 ml Balance -2660 ml 700 ml Intake Oral 340 ml 700 ml Output Hemodialysis UF 3000 ml General Appearance: no acute distress HEENT: normocephalic Respiratory: chest wall non-tender, lungs clear Cardiovascular: normal peripheral pulses, normal rate Abdomen: normal bowel sounds Microbiology Date/Time Source Procedure Growth Status 08/05/20 18:00 Rectum Received 08/05/20 16:50 Nasopharynx SARS-CoV-2 RdRp Gene Assay - Final Complete Laboratory Tests 08/06/20 12:38: POC Whole Blood Glucose [Pending] 08/06/20 16:27: POC Whole Blood Glucose 127H 08/06/20 20:37: POC Whole Blood Glucose 187H 08/07/20 05:45: POC Whole Blood Glucose [Pending] 08/07/20 06:03: POC Whole Blood Glucose 91 08/07/20 06:33: POC Whole Blood Glucose 113H Current Medications Medications (Trade) Dose Ordered Sig/Clau Route PRN Reason Start Time Stop Time Status Last Admin Dose Admin Acetaminophen (Tylenol) 325 mg Q4H PRN ORAL For Pain 08/05/20 21:30 09/04/20 21:29 08/06/20 14:07 Acetaminophen/ Hydrocodone Bitart ([place] 10/325) 1 tab Q4H PRN ORAL For Pain 08/05/20 21:30 08/12/20 21:29 08/06/20 17:11 Amitriptyline HCl (Elavil) 10 mg BEDTIME ORAL 08/06/20 21:00 09/05/20 20:59 08/06/20 21:45 Amlodipine Besylate (Norvasc) 10 mg DAILY ORAL 08/06/20 09:00 09/05/20 08:59 08/07/20 08:36 Apixaban (Eliquis) 2.5 mg BID ORAL 08/06/20 09:00 11/04/20 08:59 08/07/20 08:37 Atorvastatin Calcium (Lipitor) 20 mg BEDTIME ORAL 08/06/20 21:00 11/04/20 20:59 08/06/20 21:45 Clonidine HCl (Catapres Tab) 0.1 mg Q8H PRN ORAL For High Blood Pressure 08/06/20 17:00 11/04/20 16:59 08/06/20 17:12 Dextrose (Dextrose 50%) 25 ml Q30M PRN IV Hypoglycemia 08/05/20 21:45 11/03/20 21:44 Dextrose (Dextrose 50%) 50 ml Q30M PRN IV Hypoglycemia 08/05/20 21:45 11/03/20 21:44 Escitalopram Oxalate (Lexapro) 10 mg DAILY ORAL 08/07/20 09:00 09/06/20 08:59 08/07/20 08:36 Furosemide (Lasix) 20 mg EVERY 12 HOURS IV 08/06/20 09:00 09/05/20 08:59 08/06/20 21:45 Gabapentin (Neurontin) 300 mg DAILY ORAL 08/06/20 09:00 09/05/20 08:59 08/07/20 08:33 Hydralazine HCl (Apresoline) 10 mg Q6H PRN IV For High Blood Pressure 08/06/20 06:45 11/04/20 06:44 08/06/20 06:48 Insulin Aspart (NovoLOG) BEFORE MEALS AND HS SUBQ 08/05/20 22:00 11/03/20 21:59 08/06/20 21:50 Insulin Detemir (Levemir) 10 units BEDTIME SUBQ 08/05/20 23:00 11/03/20 22:59 08/06/20 21:51 Levothyroxine Sodium (Synthroid) 25 mcg ACBREAKFAST ORAL 08/06/20 06:30 09/05/20 06:29 08/07/20 05:55 Losartan Potassium (Cozaar) 50 mg BID ORAL 08/06/20 09:00 09/05/20 08:59 08/07/20 08:36 Metoprolol Tartrate (Lopressor) 25 mg DAILY ORAL 08/06/20 09:00 11/04/20 08:59 08/07/20 08:36 Metoprolol Tartrate (Lopressor) 50 mg BEDTIME ORAL 08/06/20 21:00 11/04/20 20:59 08/06/20 21:45 Sevelamer Carbonate (Renvela) 1,600 mg THREE TIMES A DAY ORAL 08/06/20 09:00 11/04/20 08:59 08/07/20 08:36 Vitamin B Complex/ Vit C/Folic Acid (Nephrovite) 1 tab DAILY ORAL 08/06/20 09:00 09/05/20 08:59 08/07/20 08:36 Assessment/Plan Assessment/Plan IMPRESSION: 1. Pulmonary edema. 2. ESRD on dialysis. DISCUSSION: Agree with hemodialysis. Continue oxygen, pulmonary hygiene. I will follow carefully. Blood pressure control. Jose De Jesus Sheppard Omar Syed MD Aug 07, 2020 09:01
--- NOTE | 2020-08-07 10:00 | Diagnostic Imaging Report ---
Indication: Leg pain Technique: Grayscale and duplex images of the bilateral lower extremity veins Comparison: Findings: Bilaterally, grayscale and duplex images demonstrate no evidence of intraluminal thrombus. Normal phasic Doppler waveforms, demonstrating normal augmentation response and no evidence of valvular insufficiency. Greater saphenous vein(s) and tibial veins are patent. Normal compressibility. Impression: Negative for evidence of lower extremity deep venous thrombosis bilaterally
--- NOTE | 2020-08-07 11:07 | Nephrology Progress Note ---
Assessment/Plan Assessment/Plan: A/P 1) ESRD- HD today for 2 hrs and 2 L UF 2) HTN- stable at goal 3) SOB- improed post DC - HD today again Subjective Date patient seen: Aug 07, 2020 Time patient seen: 11:05 ROS Limited/Unobtainable: No Allergies: Coded Allergies: NSAIDS (NON-STEROIDAL ANTI-INFLAMMA (Verified Allergy, Mild, 01/30/16) Uncoded Allergies: NSAIDS (Allergy, Unknown, 03/15/16) Subjective Patient feeling better Objective Last 24 Hour Vital Signs Date Time Temp Pulse Resp B/P (MAP) Pulse Ox O2 Delivery O2 Flow Rate FiO2 08/07/20 08:36 65 154/62 08/07/20 08:36 154/62 08/07/20 08:36 65 154/62 08/07/20 08:00 97.7 65 18 154/62 (92) 96 08/07/20 08:00 58 08/07/20 04:00 57 08/07/20 04:00 97.0 61 20 117/65 (82) 94 08/07/20 00:00 71 08/07/20 00:00 97.9 55 20 136/52 (80) 97 08/07/20 00:00 58 08/06/20 21:45 70 155/53 08/06/20 21:00 Room Air 08/06/20 20:00 71 08/06/20 20:00 97.9 70 20 155/53 (87) 94 08/06/20 18:28 143/55 08/06/20 17:12 184/69 08/06/20 16:00 64 08/06/20 16:00 97.5 59 18 152/58 (89) 94 08/06/20 14:08 178/73 08/06/20 13:59 178/73 (108) 08/06/20 12:00 180/78 (112) 08/06/20 12:00 70 08/06/20 11:59 63 189/69 Intake and Output 08/06/20 08/07/20 19:00 07:00 Intake Total 340 ml 700 ml Output Total 3000 ml Balance -2660 ml 700 ml Intake Oral 340 ml 700 ml Output Hemodialysis UF 3000 ml Laboratory Tests 08/06/20 12:38: POC Whole Blood Glucose [Pending] 08/06/20 16:27: POC Whole Blood Glucose 127H 08/06/20 20:37: POC Whole Blood Glucose 187H 08/07/20 05:45: POC Whole Blood Glucose [Pending] 08/07/20 06:03: POC Whole Blood Glucose 91 08/07/20 06:33: POC Whole Blood Glucose 113H Height (Feet): 5 Height (Inches): 7.00 Weight (Pounds): 160 General Appearance: no apparent distress Cardiovascular: normal rate Respiratory/Chest: lungs clear Abdomen: non tender, soft Edema: no edema noted Arm (L), no edema noted Arm (R), no edema noted Leg (L), no edema noted Leg (R), no edema noted Pedal (L), no edema noted Pedal (R), no edema noted Generalized Nikolay Burris MD Aug 07, 2020 11:07
--- NOTE | 2020-08-07 11:46 | NUR ---
NURSE NOTES: CALLED [facility] AND SPOKE WITH RICARDO TO SCHED HD FOR TODAY 08/07 ORDERED. AWAITS FOR [facility] TO CALL BACK.
--- NOTE | 2020-08-07 17:20 | NUR ---
NURSE NOTES: YOUNG, HD IN THE ROOM INITIATED HD. WILL CONT TO MONITOR.
--- NOTE | 2020-08-07 17:44 | NUR ---
NURSE NOTES: PATIENT NOW ABLE TO FEED SELF AND INTERACTS MORE COMPARE THIS AM. ABLE TO TOLERATE FOOD INTAKE WELL. WILL CONT TO MONITOR.
--- NOTE | 2020-08-07 17:46 | NUR ---
NURSE NOTES: JULIANE WILSON IN THE PREMISES AND MADE AWARE OF THE HD TODAY FOR MS DIAMOND. WILL CONT TO MONITOR. Addendum: 08/07/20 at 1909 by JUDITH IRIZARRY LVN OUTPUT 2L PER JULIANE WILSON
--- NOTE | 2020-08-07 19:10 | NUR ---
NURSE HAND-OFF REPORT: Important Events on Shift:[BS MONITORING, FOOD INTAKE ENCOURAGEMENT; HD TODAY.] Patient Status: [IMPROVING] Diet: [RENAL] Pending Orders: [] Pending Results/Labs:[] Pending MD notification:[] Latest Vital Signs: Temperature 98.3 , Pulse 66 , B/P 146 /67 , Respiratory Rate 19 , O2 SAT 97 , Room Air, O2 Flow Rate . Vital Sign Comment: [] EKG Rhythm: SR W/ 1st degree AVB Rhythm change?: N MD Notified?: Garry Dey MD Response: Order Received& Read Back Latest Peterson Fall Score: 45 Fall Risk: High Risk Safety Measures: Call light Within Reach, Bed Alarm Zone 2, Side Rails Side Rails x3, Bed position Low and Locked. Fall Precautions: Yellow Socks Yellow Gown Door Sign Patient Fall Education Report given to [PAPA].
--- NOTE | 2020-08-07 19:27 | NUR ---
NURSE NOTES: RECEIVED REPORT FROM MANOLO RIDLEY. PATIENT AWAKE, AOX4, VERBALLY RESPONSIVE AND ABLE TO MAKE NEEDS KNOWN. PATIENT JUST COMPLETED HD- 2L OUT. NO COMPLAINTS OF PAIN OR DISCOMFORT. DENIES FEELINGS OF DIZZINESS. BREATHING IS EVEN AND UNLABORED ON ROOM AIR, NO S/SX OF DISTRESS NOTED. ON RIGHT ARM PRECAUTIONS D/T PRESENCE OF FORTINO AV SHUNT- SITE IS ASYMPTOMATIC, COVERED IN DRESSING. IV SITE ON LEFT WRIST PATENT, INTACT, ASYMPTOMATIC- SALINE-LOCKED. FALL PRECAUTIONS IN PLACE. BED LOCKED AND IN LOWEST POSITION, SIDERAILS UP X 2. CALL LIGHT WITHIN REACH, WILL CONTINUE TO MONITOR PER POC.
--- NOTE | 2020-08-07 20:40 | NUR ---
NURSE NOTES: SBP NOTED TO BE 169- CLONIDINE 0.1MG PO GIVEN ORDERED FOR SBP > 160. PATIENT DENIES ANY FEELINGS OF DIZZINESS OR LIGHTHEADEDNESS. BP RECHECKED 30 MINUTES LATER, NOTED TO BE 143/60. WILL CONTINUE TO MONITOR FOR ANY CHANGES.
[2020-08-07] MEDS: Atorvastatin 20mg tab ORAL SCH (20:45)
[2020-08-07] MEDS: Metoprolol Tartrate 50mg tab ORAL SCH (20:45)
[2020-08-07] MEDS: Levemir Flexpen SUBQ SCH (20:46)
--- NOTE | 2020-08-07 21:00 | NUR ---
NURSE NOTES: BS 104; NOVOLOG SS AND LEVEMIR HELD DUE TO PATIENT'S CHANGE IN APPETITE.
--- NOTE | 2020-08-07 22:47 | Psychiatric Progress Note ---
Psychiatry Progress Note Psychiatry Progress Note Medications Current Medications Medications (Trade) Dose Ordered Sig/Clau Route PRN Reason Start Time Stop Time Status Last Admin Dose Admin Acetaminophen (Tylenol) 325 mg Q4H PRN ORAL For Pain 08/05/20 21:30 09/04/20 21:29 08/06/20 14:07 Acetaminophen/ Hydrocodone Bitart ([place] 10/325) 1 tab Q4H PRN ORAL For Pain 08/05/20 21:30 08/12/20 21:29 08/06/20 17:11 Amitriptyline HCl (Elavil) 10 mg BEDTIME ORAL 08/06/20 21:00 09/05/20 20:59 08/07/20 20:39 Amlodipine Besylate (Norvasc) 10 mg DAILY ORAL 08/06/20 09:00 09/05/20 08:59 08/07/20 08:36 Apixaban (Eliquis) 2.5 mg BID ORAL 08/06/20 09:00 11/04/20 08:59 08/07/20 08:37 Atorvastatin Calcium (Lipitor) 20 mg BEDTIME ORAL 08/06/20 21:00 11/04/20 20:59 08/07/20 20:45 Clonidine HCl (Catapres Tab) 0.1 mg Q8H PRN ORAL For High Blood Pressure 08/06/20 17:00 11/04/20 16:59 08/07/20 20:39 Dextrose (Dextrose 50%) 25 ml Q30M PRN IV Hypoglycemia 08/05/20 21:45 11/03/20 21:44 Dextrose (Dextrose 50%) 50 ml Q30M PRN IV Hypoglycemia 08/05/20 21:45 11/03/20 21:44 Escitalopram Oxalate (Lexapro) 10 mg DAILY ORAL 08/07/20 09:00 09/06/20 08:59 08/07/20 08:36 Furosemide (Lasix) 20 mg EVERY 12 HOURS IV 08/06/20 09:00 09/05/20 08:59 08/07/20 20:39 Gabapentin (Neurontin) 300 mg DAILY ORAL 08/06/20 09:00 09/05/20 08:59 08/07/20 08:33 Hydralazine HCl (Apresoline) 10 mg Q6H PRN IV For High Blood Pressure 08/06/20 06:45 11/04/20 06:44 08/06/20 06:48 Insulin Aspart (NovoLOG) BEFORE MEALS AND HS SUBQ 08/05/20 22:00 11/03/20 21:59 08/07/20 16:36 Insulin Detemir (Levemir) 10 units BEDTIME SUBQ 08/05/20 23:00 11/03/20 22:59 08/06/20 21:51 Levothyroxine Sodium (Synthroid) 25 mcg ACBREAKFAST ORAL 08/06/20 06:30 09/05/20 06:29 08/07/20 05:55 Losartan Potassium (Cozaar) 50 mg BID ORAL 08/06/20 09:00 09/05/20 08:59 08/07/20 08:36 Metoprolol Tartrate (Lopressor) 25 mg DAILY ORAL 08/06/20 09:00 11/04/20 08:59 08/07/20 08:36 Metoprolol Tartrate (Lopressor) 50 mg BEDTIME ORAL 08/06/20 21:00 11/04/20 20:59 08/07/20 20:45 Sevelamer Carbonate (Renvela) 1,600 mg THREE TIMES A DAY ORAL 08/06/20 09:00 11/04/20 08:59 08/07/20 08:36 Vitamin B Complex/ Vit C/Folic Acid (Nephrovite) 1 tab DAILY ORAL 08/06/20 09:00 09/05/20 08:59 08/07/20 08:36 Neurological/Psychiatric: Reports: anxiety, depressed, numbness, weakness Allergies: Coded Allergies: NSAIDS (NON-STEROIDAL ANTI-INFLAMMA (Verified Allergy, Mild, 01/30/16) Uncoded Allergies: NSAIDS (Allergy, Unknown, 03/15/16) Objective Data Height (Feet): 5 Height (Inches): 7.00 Weight (Pounds): 160 General Appearance: no apparent distress Additional Comments: alert, oriented times self, place, situation. Mood is depressed. Affect is tearful. Thought process is linear and goal oriented. Thought content, negative for suicidal or homicidal ideation. Cognition is intact. Insight and judgment fair. Assessment/Plan Assessment/Plan: ASSESSMENT: [place] I Major depressive disorder. Anxiety disorder. [place] II Deferred. [place] III End-stage renal disease. [place] IV Low. [place] V 50. PLAN: 1. We will start the patient on Lexapro 10 mg in the morning. 2. Provide the patient with reality orientation and supportive therapy. Finn Noonan MD Aug 07, 2020 22:47
[2020-08-08] VITALS (10 sets, daily range): BP systolic 148–182; BP diastolic 59–80
--- NOTE | 2020-08-08 00:45 | NUR ---
NURSE NOTES: PATIENT'S SBP NOTED TO BE ELEVATED AT 172. HYDRALAZINE 10 MG IV GIVEN ORDERED FOR SBP > 170. BP RECHECKED 30 MINUTES LATER WAS 148/65. WILL CONTINUE TO MONITOR PATIENT.
[2020-08-08] MEDS: NovoLOG Insulin Flexpen SUBQ SCH ×4 (05:58→20:21)
[2020-08-08] MEDS: Levothyroxine 25mcg tab ORAL SCH (05:58)
--- NOTE | 2020-08-08 06:34 | NUR ---
NURSE HAND-OFF REPORT: Important Events on Shift: HD (2L OUT), HTN (SBP > 170) Patient Status: STABLE Diet: RENAL Pending Orders: N/A Pending Results/Labs: N/A Pending notification: N/A Latest Vital Signs: Temperature 97.5 , Pulse 57 , B/P 157 /63 , Respiratory Rate 18 , O2 SAT 95 , Room Air, O2 Flow Rate . Vital Sign Comment: HTN WITH SBP <170 X 1 EKG Rhythm: Sinus Bradycardia Rhythm change?: N Notified?: Y -Dr. Tiburcio MARTINEZ Response: Order Received& Read Back Latest [place] Fall Score: 45 Fall Risk: High Risk Safety Measures: Call light Within Reach, Bed Alarm Zone 1, Side Rails Side Rails x2, Bed position Low and Locked. Fall Precautions: Yellow Socks Yellow Gown Door Sign Patient Fall Education Report given to WILL AMEND ONCE REPORT GIVEN TO ASSIGNED NURSE. Addendum: 08/08/20 at 0637 by Usha Rayo RN *Vital Sign Comment: HTN WITH SBP > 170 X 1* Addendum: 08/08/20 at 0731 by Usha Rayo RN REPORT GIVEN TO ELAYNE CHANCE.
--- NOTE | 2020-08-08 07:37 | NUR ---
NURSE NOTES: Report received from Usha HOLLY. Patient seen on rounds, up in bed eating breakfast, not in distress or pain, SR on tele monitor HR 64bpm. Nurse reports pt had hypertensive episode last night and was given IV Hydralazine and PO Clonidine. Right upper AV shunt fistula noted with bruits and thrill. PIV on left wrist patent and intact. Bed low and locked, siderails up x2, call light placed within reach and instructed to call nurse for assistance. Will continue to monitor.
[2020-08-08] MEDS: Losartan 50mg tab ORAL SCH ×2 (09:18→17:11)
[2020-08-08] MEDS: Eliquis 2.5mg tablet ORAL SCH ×2 (09:19→17:12)
[2020-08-08] MEDS: Nephrovite tab (Rena-Vite) ORAL SCH (09:20)
[2020-08-08 09:22] LABS: BASOPHILS % (AUTO) 1.2 % (0.0-2.0); HEMATOCRIT 39.4 % (37.0-47.0); HEMOGLOBIN 11.9 G/DL (12.0-16.0); LYMPHOCYTES % (AUTO) 6.9 % (20.0-45.0); MEAN CORPUSCULAR VOLUME 103 FL (80-99); MONOCYTES % (AUTO) 9.9 % (1.0-10.0); PLATELET COUNT 136 K/UL (150-450); RED BLOOD COUNT 3.82 M/UL (4.20-5.40); RED CELL DISTRIBUTION WIDTH 13.8 % (11.6-14.8); WHITE BLOOD COUNT 7.7 K/UL (4.8-10.8)
[2020-08-08 09:41] LABS: ANION GAP 7 mmol/L (5-15); BLOOD UREA NITROGEN 22 mg/dL (7-18); CARBON DIOXIDE 30 MMOL/L (21-32); CHLORIDE 101 MMOL/L (98-107); CREATININE 5.6 MG/DL (0.55-1.30); POTASSIUM 4.7 MMOL/L (3.5-5.1); SODIUM 138 MMOL/L (136-145)
[2020-08-08 09:51] LABS: ALANINE AMINOTRANSFERASE 8 U/L (12-78); ALBUMIN 2.7 G/DL (3.4-5.0); ALBUMIN/GLOBULIN RATIO 1.3 (1.0-2.7); ALKALINE PHOSPHATASE 145 U/L (46-116); ASPARTATE AMINO TRANSFERASE 10 U/L (15-37); BILIRUBIN,TOTAL 0.6 MG/DL (0.2-1.0); PHOSPHORUS 2.3 MG/DL (2.5-4.9)
[2020-08-08] MEDS ORDERED: HydrALAZINE 50mg tab ORAL SCH (10:30)
--- NOTE | 2020-08-08 10:31 | Nephrology Progress Note ---
Assessment/Plan Problem List: (1) ESRD (end stage renal disease) on dialysis (2) CHF exacerbation (3) Hypertensive kidney disease (4) Diabetic sensorimotor polyneuropathy Plan August 08: Coverage for Dr. Chan Labs reviewed. Blood pressure medication adjusted, patient is started on hydralazine. Phos binder dose decreased. Patient was dialyzed 2 days in a row. Will arrange for dialysis tomorrow. Continue per consultants. Subjective ROS Limited/Unobtainable: No Constitutional: Reports: malaise Objective Objective Last 24 Hour Vital Signs Date Time Temp Pulse Resp B/P (MAP) Pulse Ox O2 Delivery O2 Flow Rate FiO2 08/08/20 09:33 98.7 65 19 178/70 (106) 97 08/08/20 09:20 64 182/73 08/08/20 09:19 64 182/73 08/08/20 09:18 182/73 08/08/20 09:00 Room Air 08/08/20 08:35 182/73 08/08/20 08:00 65 08/08/20 08:00 98.7 68 19 182/73 (109) 97 08/08/20 04:00 57 08/08/20 04:00 97.5 58 18 157/63 (94) 95 08/08/20 00:43 148/65 (92) 08/08/20 00:00 97.7 56 20 172/69 (103) 94 08/08/20 00:00 57 08/07/20 23:56 172/69 08/07/20 21:00 Room Air 08/07/20 20:45 143/60 (87) 08/07/20 20:45 65 161/68 08/07/20 20:39 169/65 08/07/20 20:00 66 08/07/20 20:00 98.2 64 20 169/65 (99) 94 08/07/20 17:19 146/67 08/07/20 16:00 66 08/07/20 16:00 98.3 68 19 146/67 (93) 97 08/07/20 12:43 61 08/07/20 12:42 Room Air 08/07/20 11:50 98.3 72 20 145/71 (95) 97 Intake and Output 08/07/20 08/08/20 19:00 07:00 Intake Total 960 ml 240 ml Output Total 2000 ml Balance 960 ml -1760 ml Intake Oral 960 ml 240 ml Output Hemodialysis UF 2000 ml Current Medications Medications (Trade) Dose Ordered Sig/Clau Route PRN Reason Start Time Stop Time Status Last Admin Dose Admin Acetaminophen (Tylenol) 325 mg Q4H PRN ORAL For Pain 08/05/20 21:30 09/04/20 21:29 08/06/20 14:07 Acetaminophen/ Hydrocodone Bitart ([place] 10/325) 1 tab Q4H PRN ORAL For Pain 08/05/20 21:30 08/12/20 21:29 08/06/20 17:11 Amitriptyline HCl (Elavil) 10 mg BEDTIME ORAL 08/06/20 21:00 09/05/20 20:59 08/07/20 20:39 Amlodipine Besylate (Norvasc) 10 mg DAILY ORAL 08/06/20 09:00 09/05/20 08:59 08/08/20 09:20 Apixaban (Eliquis) 2.5 mg BID ORAL 08/06/20 09:00 11/04/20 08:59 08/08/20 09:19 Atorvastatin Calcium (Lipitor) 20 mg BEDTIME ORAL 08/06/20 21:00 11/04/20 20:59 08/07/20 20:45 Clonidine HCl (Catapres Tab) 0.1 mg Q8H PRN ORAL For High Blood Pressure 08/06/20 17:00 11/04/20 16:59 08/07/20 20:39 Dextrose (Dextrose 50%) 25 ml Q30M PRN IV Hypoglycemia 08/05/20 21:45 11/03/20 21:44 Dextrose (Dextrose 50%) 50 ml Q30M PRN IV Hypoglycemia 08/05/20 21:45 11/03/20 21:44 Escitalopram Oxalate (Lexapro) 10 mg DAILY ORAL 08/07/20 09:00 09/06/20 08:59 08/08/20 09:18 Gabapentin (Neurontin) 300 mg DAILY ORAL 08/06/20 09:00 09/05/20 08:59 08/08/20 09:19 Hydralazine HCl (Apresoline) 50 mg ONCE ONCE ORAL 08/08/20 10:30 08/08/20 10:31 UNV Hydralazine HCl (Apresoline) 50 mg Q8HR ORAL 08/08/20 14:00 11/06/20 13:59 UNV Insulin Aspart (NovoLOG) BEFORE MEALS AND HS SUBQ 08/05/20 22:00 11/03/20 21:59 08/07/20 16:36 Insulin Detemir (Levemir) 10 units BEDTIME SUBQ 08/05/20 23:00 11/03/20 22:59 08/06/20 21:51 Levothyroxine Sodium (Synthroid) 25 mcg ACBREAKFAST ORAL 08/06/20 06:30 09/05/20 06:29 08/08/20 05:58 Losartan Potassium (Cozaar) 50 mg BID ORAL 08/06/20 09:00 09/05/20 08:59 08/08/20 09:18 Metoprolol Tartrate (Lopressor) 25 mg DAILY ORAL 08/06/20 09:00 11/04/20 08:59 08/08/20 09:19 Metoprolol Tartrate (Lopressor) 50 mg BEDTIME ORAL 08/06/20 21:00 11/04/20 20:59 08/07/20 20:45 Sevelamer Carbonate (Renvela) 800 mg THREE TIMES A DAY ORAL 08/09/20 09:00 11/04/20 08:59 UNV Vitamin B Complex/ Vit C/Folic Acid (Nephrovite) 1 tab DAILY ORAL 08/06/20 09:00 09/05/20 08:59 08/08/20 09:20 Laboratory Tests 08/07/20 11:37: POC Whole Blood Glucose 79 08/07/20 16:34: POC Whole Blood Glucose 150H 08/07/20 20:36: POC Whole Blood Glucose 104 08/08/20 05:57: POC Whole Blood Glucose 130H 08/08/20 09:00: White Blood Count 7.7, Red Blood Count 3.82L, Hemoglobin 11.9L, Hematocrit 39.4, Mean Corpuscular Volume 103H, Mean Corpuscular Hemoglobin 31.2H, Mean Corpu scular Hemoglobin Concent 30.2L, Red Cell Distribution Width 13.8, Platelet Count 136L, Mean Platelet Volume 7.4, Neutrophils (%) (Auto) 76.0H, Lymphocytes (%) (Auto) 6.9L, Monocytes (%) (Auto) 9.9, Eosinophils (%) (Auto) 6.0H, Basophils (%) (Auto) 1.2, Sodium Level 138, Potassium Level 4.7, Chloride Level 101, Carbon Dioxide Level 30, Anion Gap 7, Blood Urea Nitrogen 22H, Creatinine 5.6H, Estimat Glomerular Filtration Rate 9.1, Glucose Level 175H, Uric Acid 3.4, Calcium Level 9.0, Phosphorus Level 2.3L, Magnesium Level 2.4, Total Bilirubin 0.6, Aspartate Amino Transf (AST/SGOT) 10L, Alanine Aminotransferase (ALT/SGPT) 8L, Alkaline Phosphatase 145H, C-Reactive Protein, Quantitative 0.6, Pro-B-Type Natriuretic Peptide > 77199K, Total Protein 4.8L, Albumin 2.7L, Globulin 2.1, Albumin/Globulin Ratio 1.3, Thyroid Stimulating Hormone (TSH) 2.653 Height (Feet): 5 Height (Inches): 7.00 Weight (Pounds): 160 General Appearance: no apparent distress, other - Feels better today Cardiovascular: normal rate Respiratory/Chest: decreased breath sounds Abdomen: soft Emir Caceres MD Aug 08, 2020 10:31
--- NOTE | 2020-08-08 11:15 | NUR ---
PT NOTE Received MD order for PT evaluation. Alyssa HOLLY requesting to defer PT as patient has been hypertensive, BP currently 163/59, HR 61. Will follow up tomorrow.
--- NOTE | 2020-08-08 11:50 | Pulmonology Progress Note ---
Subjective ROS Limited/Unobtainable: No Interval Events: Doing better; Constitutional: Reports: no symptoms HEENT: Repors: no symptoms Respiratory: Reports: no symptoms Cardiovascular: Reports: no symptoms Allergies: Coded Allergies: NSAIDS (NON-STEROIDAL ANTI-INFLAMMA (Verified Allergy, Mild, 01/30/16) Uncoded Allergies: NSAIDS (Allergy, Unknown, 03/15/16) Objective Last 24 Hour Vital Signs Date Time Temp Pulse Resp B/P (MAP) Pulse Ox O2 Delivery O2 Flow Rate FiO2 08/08/20 11:17 178/70 08/08/20 09:33 98.7 65 19 178/70 (106) 97 08/08/20 09:20 64 182/73 08/08/20 09:19 64 182/73 08/08/20 09:18 182/73 08/08/20 09:00 Room Air 08/08/20 08:35 182/73 08/08/20 08:00 65 08/08/20 08:00 98.7 68 19 182/73 (109) 97 08/08/20 04:00 57 08/08/20 04:00 97.5 58 18 157/63 (94) 95 08/08/20 00:43 148/65 (92) 08/08/20 00:00 97.7 56 20 172/69 (103) 94 08/08/20 00:00 57 08/07/20 23:56 172/69 08/07/20 21:00 Room Air 08/07/20 20:45 143/60 (87) 08/07/20 20:45 65 161/68 08/07/20 20:39 169/65 08/07/20 20:00 66 08/07/20 20:00 98.2 64 20 169/65 (99) 94 08/07/20 17:19 146/67 08/07/20 16:00 66 08/07/20 16:00 98.3 68 19 146/67 (93) 97 08/07/20 12:43 61 08/07/20 12:42 Room Air Intake and Output 08/07/20 08/08/20 19:00 07:00 Intake Total 960 ml 240 ml Output Total 2000 ml Balance 960 ml -1760 ml Intake Oral 960 ml 240 ml Output Hemodialysis UF 2000 ml General Appearance: no acute distress HEENT: normocephalic Respiratory: chest wall non-tender, lungs clear Cardiovascular: normal peripheral pulses, normal rate Abdomen: normal bowel sounds Microbiology Date/Time Source Procedure Growth Status 08/05/20 18:00 Rectum - Final NO CARBAPENEM-RESISTANT ENTEROBACTERI... Complete 08/05/20 18:00 Rectum VRE Culture - Final NO VANCOMYCIN RESISTANT ENTEROCOCCUS ... Complete 08/05/20 16:50 Nasopharynx SARS-CoV-2 RdRp Gene Assay - Final Complete Laboratory Tests 08/07/20 16:34: POC Whole Blood Glucose 150H 08/07/20 20:36: POC Whole Blood Glucose 104 08/08/20 05:57: POC Whole Blood Glucose 130H 08/08/20 09:00: White Blood Count 7.7, Red Blood Count 3.82L, Hemoglobin 11.9L, Hematocrit 39.4, Mean Corpuscular Volume 103H, Mean Corpuscular Hemoglobin 31.2H, Mean Corpuscular Hemoglobin Concent 30.2L, Red Cell Distribution Width 13.8, Platelet Count 136L, Mean Platelet Volume 7.4, Neutrophils (%) (Auto) 76.0H, Lymphocytes (%) (Auto) 6.9L, Monocytes (%) (Auto) 9.9, Eosinophils (%) (Auto) 6.0H, Basophils (%) (Auto) 1.2, Sodium Level 138, Potassium Level 4.7, Chloride Level 101, Carbon Dioxide Level 30, Anion Gap 7, Blood Urea Nitrogen 22H, Creatinine 5.6H, Estimat Glomerular Filtration Rate 9.1, Glucose Level 175H, Uric Acid 3.4, Calcium Level 9.0, Phosphorus Level 2.3L, Magnesium Level 2.4, Total Bilirubin 0.6, Aspartate Amino Transf (AST/SGOT) 10L, Alanine Aminotransferase (ALT/SGPT) 8L, Alkaline Phosphatase 145H, C-Reactive Protein, Quantitative 0.6, Pro-B-Type Natriuretic Peptide > 90684I, Total Protein 4.8L, Albumin 2.7L, Globulin 2.1, Albumin/Globulin Ratio 1.3, Thyroid Stimulating Hormone (TSH) 2.653 08/08/20 11:20: POC Whole Blood Glucose 163H Current Medications Medications (Trade) Dose Ordered Sig/Clau Route PRN Reason Start Time Stop Time Status Last Admin Dose Admin Acetaminophen (Tylenol) 325 mg Q4H PRN ORAL For Pain 08/05/20 21:30 09/04/20 21:29 08/06/20 14:07 Acetaminophen/ Hydrocodone Bitart ([place] 10/325) 1 tab Q4H PRN ORAL For Pain 08/05/20 21:30 08/12/20 21:29 08/06/20 17:11 Amitriptyline HCl (Elavil) 10 mg BEDTIME ORAL 08/06/20 21:00 09/05/20 20:59 08/07/20 20:39 Amlodipine Besylate (Norvasc) 10 mg DAILY ORAL 08/06/20 09:00 09/05/20 08:59 08/08/20 09:20 Apixaban (Eliquis) 2.5 mg BID ORAL 08/06/20 09:00 11/04/20 08:59 08/08/20 09:19 Atorvastatin Calcium (Lipitor) 20 mg BEDTIME ORAL 08/06/20 21:00 11/04/20 20:59 08/07/20 20:45 Clonidine HCl (Catapres Tab) 0.1 mg Q8H PRN ORAL For High Blood Pressure 08/06/20 17:00 11/04/20 16:59 08/07/20 20:39 Dextrose (Dextrose 50%) 25 ml Q30M PRN IV Hypoglycemia 08/05/20 21:45 11/03/20 21:44 Dextrose (Dextrose 50%) 50 ml Q30M PRN IV Hypoglycemia 08/05/20 21:45 11/03/20 21:44 Docusate Sodium (Colace) 100 mg THREE TIMES A DAY ORAL 08/08/20 13:00 09/07/20 12:59 Escitalopram Oxalate (Lexapro) 10 mg DAILY ORAL 08/07/20 09:00 09/06/20 08:59 08/08/20 09:18 Gabapentin (Neurontin) 300 mg DAILY ORAL 08/06/20 09:00 09/05/20 08:59 08/08/20 09:19 Hydralazine HCl (Apresoline) 50 mg ONCE ORAL 08/08/20 10:30 08/08/20 12:00 08/08/20 11:17 Hydralazine HCl (Apresoline) 50 mg Q8HR ORAL 08/08/20 14:00 11/06/20 13:59 Insulin Aspart (NovoLOG) BEFORE MEALS AND HS SUBQ 08/05/20 22:00 11/03/20 21:59 08/07/20 16:36 Insulin Detemir (Levemir) 10 units BEDTIME SUBQ 08/05/20 23:00 11/03/20 22:59 08/06/20 21:51 Levothyroxine Sodium (Synthroid) 25 mcg ACBREAKFAST ORAL 08/06/20 06:30 09/05/20 06:29 08/08/20 05:58 Losartan Potassium (Cozaar) 50 mg BID ORAL 08/06/20 09:00 09/05/20 08:59 08/08/20 09:18 Metoprolol Tartrate (Lopressor) 25 mg DAILY ORAL 08/06/20 09:00 11/04/20 08:59 08/08/20 09:19 Metoprolol Tartrate (Lopressor) 50 mg BEDTIME ORAL 08/06/20 21:00 11/04/20 20:59 08/07/20 20:45 Pantoprazole (Protonix) 40 mg EVERY 12 HOURS ORAL 08/08/20 21:00 09/07/20 20:59 Sevelamer Carbonate (Renvela) 800 mg THREE TIMES A DAY ORAL 08/09/20 09:00 11/04/20 08:59 Vitamin B Complex/ Vit C/Folic Acid (Nephrovite) 1 tab DAILY ORAL 08/06/20 09:00 09/05/20 08:59 08/08/20 09:20 Assessment/Plan Assessment/Plan IMPRESSION: 1. Pulmonary edema. 2. ESRD on dialysis. DISCUSSION: Agree with hemodialysis. Continue oxygen, pulmonary hygiene. I will follow carefully. Blood pressure control. Jose De Jesus Sheppard Omar Syed MD Aug 08, 2020 11:50
--- NOTE | 2020-08-08 12:14 | General Progress Note ---
Subjective Allergies: Coded Allergies: NSAIDS (NON-STEROIDAL ANTI-INFLAMMA (Verified Allergy, Mild, 01/30/16) Uncoded Allergies: NSAIDS (Allergy, Unknown, 03/15/16) Subjective feels better c/o nausea/vomiting last night subsided sob bp is high this am Objective Last 24 Hour Vital Signs Date Time Temp Pulse Resp B/P (MAP) Pulse Ox O2 Delivery O2 Flow Rate FiO2 08/08/20 12:00 98.1 61 19 163/59 (93) 96 08/08/20 11:17 178/70 08/08/20 09:33 98.7 65 19 178/70 (106) 97 08/08/20 09:20 64 182/73 08/08/20 09:19 64 182/73 08/08/20 09:18 182/73 08/08/20 09:00 Room Air 08/08/20 08:35 182/73 08/08/20 08:00 65 08/08/20 08:00 98.7 68 19 182/73 (109) 97 08/08/20 04:00 57 08/08/20 04:00 97.5 58 18 157/63 (94) 95 08/08/20 00:43 148/65 (92) 08/08/20 00:00 97.7 56 20 172/69 (103) 94 08/08/20 00:00 57 08/07/20 23:56 172/69 08/07/20 21:00 Room Air 08/07/20 20:45 143/60 (87) 08/07/20 20:45 65 161/68 08/07/20 20:39 169/65 08/07/20 20:00 66 08/07/20 20:00 98.2 64 20 169/65 (99) 94 08/07/20 17:19 146/67 08/07/20 16:00 66 08/07/20 16:00 98.3 68 19 146/67 (93) 97 08/07/20 12:43 61 08/07/20 12:42 Room Air Intake and Output 08/07/20 08/08/20 19:00 07:00 Intake Total 960 ml 240 ml Output Total 2000 ml Balance 960 ml -1760 ml Intake Oral 960 ml 240 ml Output Hemodialysis UF 2000 ml Laboratory Tests 08/07/20 16:34: POC Whole Blood Glucose 150H 08/07/20 20:36: POC Whole Blood Glucose 104 08/08/20 05:57: POC Whole Blood Glucose 130H 08/08/20 09:00: White Blood Count 7.7, Red Blood Count 3.82L, Hemoglobin 11.9L, Hematocrit 39.4, Mean Corpuscular Volume 103H, Mean Corpuscular Hemoglobin 31.2H, Mean Corpuscular Hemoglobin Concent 30.2L, Red Cell Distribution Width 13.8, Platelet Count 136L, Mean Platelet Volume 7.4, Neutrophils (%) (Auto) 76.0H, Lymphocytes (%) (Auto) 6.9L, Monocytes (%) (Auto) 9.9, Eosinophils (%) (Auto) 6.0H, Basophils (%) (Auto) 1.2, Sodium Level 138, Potassium Level 4.7, Chloride Level 101, Carbon Dioxide Level 30, Anion Gap 7, Blood Urea Nitrogen 22H, Creatinine 5.6H, Estimat Glomerular Filtration Rate 9.1, Glucose Level 175H, Uric Acid 3.4, Calcium Level 9.0, Phosphorus Level 2.3L, Magnesium Level 2.4, Total Bilirubin 0.6, Aspartate Amino Transf (AST/SGOT) 10L, Alanine Aminotransferase (ALT/SGPT) 8L, Alkaline Phosphatase 145H, C-Reactive Protein, Quantitative 0.6, Pro-B-Type Natriuretic Peptide > 09871Z, Total Protein 4.8L, Albumin 2.7L, Globulin 2.1, Albumin/Globulin Ratio 1.3, Thyroid Stimulating Hormone (TSH) 2.653 08/08/20 11:20: POC Whole Blood Glucose 163H Height (Feet): 5 Height (Inches): 7.00 Weight (Pounds): 160 General Appearance: alert EENT: PERRL/EOMI Neck: supple Cardiovascular: normal rate Respiratory/Chest: lungs clear Abdomen: non tender, soft Edema: mild edema Assessment/Plan Assessment/Plan: 1 chf combined 2 fluid overload 3 htn accelareted better 4 dm 5 dm neuropathy 6 weakness 7 depression 8 n/v [facility]ot fluid and salt restriction cardio and nephro consult adjust cardiac meds Keenan Dey MD Aug 08, 2020 12:14
[2020-08-08] MEDS: Docusate 100mg cap ORAL SCH ×2 (12:45→17:20)
--- NOTE | 2020-08-08 12:45 | NUR ---
NURSE NOTES: Pt refused Colace, educated on risks and benefits, patient still refused.
--- NOTE | 2020-08-08 13:02 | NUR ---
NURSE NOTES: Jose, dialysis nurse informed of patient's dialysis orders for /6/20.
[2020-08-08] MEDS: HydrALAZINE 50mg tab ORAL SCH ×2 (14:23→21:35)
--- NOTE | 2020-08-08 14:41 | NUR ---
NURSE NOTES: Spoke with Timothy from [facility] dialysis to confirm schedule for dialysis tomorrow 08/09.
--- NOTE | 2020-08-08 15:09 | NUR ---
TRANSFER TO FLOOR: Patient transferred to [facility]. Report given to Kervin HOLLY. Belongings and medications given to Kervin RN. Family informed of transfer.
--- NOTE | 2020-08-08 15:15 | NUR ---
NURSE NOTES: Received report from ELAYNE Shah. Patient was transferred from Tele. Patient is AAOx4 with episodes of forgetfulness, able to make needs known. Patient on room air, breathing is even and unlabored with no SOB noted at this time. Patient was received in stable condition with BP slightly elevated at 150/76, but patient is asymptomatic. Patient still has bilateral leg pitting edema from knee down, skin is intact. IV site noted, iV is patent and intact. AV shunt noted at right upper arm. Tele nurse endorsed that patient is scheduled for dialysis tomorrow, will call [facility] for confirmation. All belongings are checked and signed with nurse. RN oriented patient to room and was instructed to use call light for assistance. Bed is locked and placed in lowest position with bed alarm on. Call light within reach. Will continue to monitor
--- NOTE | 2020-08-08 19:07 | NUR ---
NURSE HAND-OFF: Important Events on Shift: transferred from tele, Hypertensive episode in tele, dialysis fro tomorrow Patient Status: stable Diet: renal Pending Orders: n/a Pending Results/Labs:n/a Pending MD notification:n/a Latest Vital Signs: Temperature 98.1 , Pulse 65 , B/P 150 /72 , Respiratory Rate 19 , O2 SAT 97 , Room Air, O2 Flow Rate . Vital Sign Comment: stable Latest Peterson Fall Score: 45 Fall Risk: High Risk Safety Measures: Call light Within Reach, Bed Alarm Zone 1, Side Rails Side Rails x2, Bed position Low and Locked. Fall Precautions: Yellow Socks Yellow Gown Door Sign Patient Fall Education Report given to ELAYNE Bansal.
--- NOTE | 2020-08-08 19:15 | NUR ---
NURSE NOTES: Pt. received from ELAYNE Galeana. Pt. AAOx4, on room air, breathing even and unlabored, no indication of SOB, no complaints of pain at this time. IV noted left wrist 24g, intact and patent, saline locked. Pt. scheduled to have dialysis tomorrow, dialysis nurse aware per day shift RN. Bed low and locked, side rails x2 up, bed alarm active, and call light in reach.
[2020-08-08] MEDS: Metoprolol Tartrate 50mg tab ORAL SCH (20:18)
[2020-08-08] MEDS: Atorvastatin 20mg tab ORAL SCH (20:18)
[2020-08-08] MEDS: Levemir Flexpen SUBQ SCH (20:33)
[2020-08-09] VITALS (9 sets, daily range): BP systolic 112–197; BP diastolic 57–100
[2020-08-09] MEDS: NovoLOG Insulin Flexpen SUBQ SCH ×4 (06:08→21:00)
[2020-08-09] MEDS: Levothyroxine 25mcg tab ORAL SCH (06:12)
[2020-08-09] MEDS: HydrALAZINE 50mg tab ORAL SCH ×3 (06:13→22:00)
--- NOTE | 2020-08-09 06:43 | NUR ---
NURSE NOTES: Recent POC glucose 74, after x2 apple juice given. Pt. alert and able to tolerate PO. Asymptomatic, Dr. Dey notified.
--- NOTE | 2020-08-09 07:04 | NUR ---
NURSE HAND-OFF: Important Events on Shift:[]pt. ambulatory to bathroom with max assist, 0600 BG 54 x2 apple juice given, BG 74 after reassessment; Dr. Dey notified, no new orders. Hypertension, PRN blood pressure medications given as ordered. Patient Status: awake, alert Diet: renal Pending Orders: dialysis as scheduled Pending Results/Labs:na Pending MD notification:na Latest Vital Signs: Temperature 98.6 , Pulse 59 , B/P 167 /117 , Respiratory Rate 18 , O2 SAT 93 , Room Air, O2 Flow Rate . Vital Sign Comment: hypertension Latest Peterson Fall Score: 60 Fall Risk: High Risk Safety Measures: Call light Within Reach, Bed Alarm Zone 1, Side Rails Side Rails x3, Bed position Low and Locked. Fall Precautions: Yellow Socks Yellow Gown Patient Fall Education Report given to ELAYNE Galeana.
--- NOTE | 2020-08-09 07:28 | NUR ---
NURSE NOTES: Received report from ELAYNE Bansal. Pt. AAOx4, on room air, breathing even and unlabored, no indication of SOB noted at this time, no complaints of pain at this time. IV noted left wrist 24g, intact and patent, saline locked. Pt. scheduled to have dialysis today, RN contacted Jose airport ramp attendant for confirmation. Per Dialysis nurse hold BP medication.. Bed low and locked, side rails x2 up, bed alarm active, and call light in reach
[2020-08-09] MEDS: Nephrovite tab (Rena-Vite) ORAL SCH (08:03)
[2020-08-09] MEDS: Docusate 100mg cap ORAL SCH ×3 (08:04→17:16)
[2020-08-09] MEDS: Eliquis 2.5mg tablet ORAL SCH ×2 (08:04→17:16)
[2020-08-09] MEDS: Losartan 50mg tab ORAL SCH ×2 (08:05→17:16)
--- NOTE | 2020-08-09 09:02 | NUR ---
RD ASSESSMENT & RECOMMENDATIONS SEE CARE ACTIVITY FOR COMPLETE ASSESSMENT DAILY ESTIMATED NEEDS: Needs based on ESRD on HD 65kg abw 30-35 kcals/kg 3293-4950 total kcals 1.2-1.8 g protein/kg 78-117 g total protein Fluid per MD, on HD NUTRITION DIAGNOSIS: Increased kcal and protein needs R/t renal dysfunction AEB pt w/ esrd on HD CURRENT DIET: renal PO DIET RECOMMENDATIONS: Maintain RENAL diet / soft ADDITIONAL RECOMMENDATIONS: - Calibrated bed scale wts - NEPRO 1 tetra qdaily Snacks in b/w meals as tolerated - Consider appetite stimulant if appropriate -> Kcal count to evaluate po intake/ meeting est needs
--- NOTE | 2020-08-09 09:34 | Pulmonology Progress Note ---
Subjective ROS Limited/Unobtainable: No Interval Events: Doing better; Constitutional: Reports: no symptoms HEENT: Repors: no symptoms Respiratory: Reports: no symptoms Cardiovascular: Reports: no symptoms Allergies: Coded Allergies: NSAIDS (NON-STEROIDAL ANTI-INFLAMMA (Verified Allergy, Mild, 01/30/16) Uncoded Allergies: NSAIDS (Allergy, Unknown, 03/15/16) Objective Last 24 Hour Vital Signs Date Time Temp Pulse Resp B/P (MAP) Pulse Ox O2 Delivery O2 Flow Rate FiO2 08/09/20 08:05 62 112/57 08/09/20 08:05 112/57 08/09/20 08:05 62 112/57 08/09/20 07:58 98.1 62 18 112/57 (75) 95 08/09/20 06:13 167/117 08/09/20 04:00 98.6 59 18 152/59 (90) 93 08/09/20 00:44 162/64 08/08/20 23:49 98.6 58 18 162/64 (96) 94 08/08/20 21:45 162/65 (97) 08/08/20 21:35 145/66 08/08/20 21:00 Room Air 08/08/20 20:18 67 159/80 08/08/20 20:00 98.5 67 18 159/80 (106) 93 08/08/20 17:11 150/72 08/08/20 16:00 98.1 65 19 150/72 (98) 97 08/08/20 14:23 143/61 08/08/20 12:00 98.1 61 19 163/59 (93) 96 08/08/20 12:00 62 08/08/20 11:17 178/70 Intake and Output 08/08/20 08/09/20 19:00 07:00 Intake Total 270 ml 600 ml Balance 270 ml 600 ml Intake Oral 270 ml 600 ml # Voids 2 General Appearance: no acute distress HEENT: normocephalic Respiratory: chest wall non-tender, lungs clear Cardiovascular: normal peripheral pulses, normal rate Abdomen: normal bowel sounds Laboratory Tests 08/08/20 11:20: POC Whole Blood Glucose 163H 08/08/20 20:20: POC Whole Blood Glucose [Pending] 08/09/20 06:02: POC Whole Blood Glucose 54L 08/09/20 06:04: POC Whole Blood Glucose 52L Current Medications Medications (Trade) Dose Ordered Sig/Clau Route PRN Reason Start Time Stop Time Status Last Admin Dose Admin Acetaminophen (Tylenol) 325 mg Q4H PRN ORAL For Pain 08/05/20 21:30 09/04/20 21:29 08/08/20 17:12 Acetaminophen/ Hydrocodone Bitart ([place] 10/325) 1 tab Q4H PRN ORAL For Pain 08/05/20 21:30 08/12/20 21:29 08/06/20 17:11 Amitriptyline HCl (Elavil) 10 mg BEDTIME ORAL 08/06/20 21:00 09/05/20 20:59 08/08/20 20:17 Amlodipine Besylate (Norvasc) 10 mg DAILY ORAL 08/06/20 09:00 09/05/20 08:59 08/08/20 09:20 Apixaban (Eliquis) 2.5 mg BID ORAL 08/06/20 09:00 11/04/20 08:59 08/09/20 08:04 Atorvastatin Calcium (Lipitor) 20 mg BEDTIME ORAL 08/06/20 21:00 11/04/20 20:59 08/08/20 20:18 Clonidine HCl (Catapres Tab) 0.1 mg Q8H PRN ORAL For High Blood Pressure 08/06/20 17:00 11/04/20 16:59 08/09/20 00:44 Dextrose (Dextrose 50%) 25 ml Q30M PRN IV Hypoglycemia 08/05/20 21:45 11/03/20 21:44 Dextrose (Dextrose 50%) 50 ml Q30M PRN IV Hypoglycemia 08/05/20 21:45 11/03/20 21:44 Docusate Sodium (Colace) 100 mg THREE TIMES A DAY ORAL 08/08/20 13:00 09/07/20 12:59 Escitalopram Oxalate (Lexapro) 10 mg DAILY ORAL 08/07/20 09:00 09/06/20 08:59 08/09/20 08:04 Gabapentin (Neurontin) 300 mg DAILY ORAL 08/06/20 09:00 09/05/20 08:59 08/09/20 08:04 Hydralazine HCl (Apresoline) 50 mg Q8HR ORAL 08/08/20 14:00 2/3/21 13:59 08/09/20 06:13 Insulin Aspart (NovoLOG) BEFORE MEALS AND HS SUBQ 08/05/20 22:00 11/03/20 21:59 08/08/20 12:44 Insulin Detemir (Levemir) 10 units BEDTIME SUBQ 08/05/20 23:00 11/03/20 22:59 08/08/20 20:33 Levothyroxine Sodium (Synthroid) 25 mcg ACBREAKFAST ORAL 08/06/20 06:30 09/05/20 06:29 08/09/20 06:12 Losartan Potassium (Cozaar) 50 mg BID ORAL 08/06/20 09:00 09/05/20 08:59 08/08/20 17:11 Metoprolol Tartrate (Lopressor) 25 mg DAILY ORAL 08/06/20 09:00 11/04/20 08:59 08/08/20 09:19 Metoprolol Tartrate (Lopressor) 50 mg BEDTIME ORAL 08/06/20 21:00 11/04/20 20:59 08/08/20 20:18 Pantoprazole (Protonix) 40 mg EVERY 12 HOURS ORAL 08/08/20 21:00 09/07/20 20:59 08/09/20 08:04 Sevelamer Carbonate (Renvela) 800 mg THREE TIMES A DAY ORAL 08/09/20 09:00 11/04/20 08:59 08/09/20 08:04 Vitamin B Complex/ Vit C/Folic Acid (Nephrovite) 1 tab DAILY ORAL 08/06/20 09:00 09/05/20 08:59 08/09/20 08:03 Assessment/Plan Assessment/Plan IMPRESSION: 1. Pulmonary edema. 2. ESRD on dialysis. DISCUSSION: Agree with hemodialysis. Continue oxygen prn Currently saturating 95% on RA Continue pulmonary hygiene. I will follow carefully. Blood pressure control. Jose De Jesus Sheppard Omar Syed MD Aug 09, 2020 09:34
--- NOTE | 2020-08-09 10:01 | Nephrology Progress Note ---
Assessment/Plan Problem List: (1) ESRD (end stage renal disease) on dialysis (2) CHF exacerbation (3) Hypertensive kidney disease (4) Diabetic sensorimotor polyneuropathy Plan August 09: Coverage for Dr. Burris No chemistry panel done today. Patient due for dialysis and ultrafiltration today. Stable from renal standpoint of view. Blood sugar fluctuating, defer diabetic management to PMD. For now I will stop Levemir dose as the patient's blood sugar down. August 08: Coverage for Dr. Cahn Labs reviewed. Blood pressure medication adjusted, patient is started on hydralazine. Phos binder dose decreased. Patient was dialyzed 2 days in a row. Will arrange for dialysis tomorrow. Continue per consultants. Subjective ROS Limited/Unobtainable: No Constitutional: Reports: malaise Objective Objective Last 24 Hour Vital Signs Date Time Temp Pulse Resp B/P (MAP) Pulse Ox O2 Delivery O2 Flow Rate FiO2 08/09/20 09:00 Room Air 08/09/20 08:05 62 112/57 08/09/20 08:05 112/57 08/09/20 08:05 62 112/57 08/09/20 07:58 98.1 62 18 112/57 (75) 95 08/09/20 06:13 167/117 08/09/20 04:00 98.6 59 18 152/59 (90) 93 08/09/20 00:44 162/64 08/08/20 23:49 98.6 58 18 162/64 (96) 94 08/08/20 21:45 162/65 (97) 08/08/20 21:35 145/66 08/08/20 21:00 Room Air 08/08/20 20:18 67 159/80 08/08/20 20:00 98.5 67 18 159/80 (106) 93 08/08/20 17:11 150/72 08/08/20 16:00 98.1 65 19 150/72 (98) 97 08/08/20 14:23 143/61 08/08/20 12:00 98.1 61 19 163/59 (93) 96 08/08/20 12:00 62 08/08/20 11:17 178/70 Intake and Output 08/08/20 08/09/20 19:00 07:00 Intake Total 270 ml 600 ml Balance 270 ml 600 ml Intake Oral 270 ml 600 ml # Voids 2 No chemistry panel done today Laboratory Tests 08/08/20 11:20: POC Whole Blood Glucose 163H 08/08/20 20:20: POC Whole Blood Glucose [Pending] 08/09/20 06:02: POC Whole Blood Glucose 54L 08/09/20 06:04: POC Whole Blood Glucose 52L Height (Feet): 5 Height (Inches): 7.00 Weight (Pounds): 160 General Appearance: no apparent distress, alert Cardiovascular: normal rate - Rate 62 Respiratory/Chest: lungs clear Abdomen: soft Emir Caceres MD Aug 09, 2020 10:01
--- NOTE | 2020-08-09 10:10 | NUR ---
PT EVALUATION NOTE Patient seen for initial evaluation and treatment initiated. Patient presents with generalized weakness and decreased balance which impairs patient's ability to perform mobility tasks safely. Patient requires min assist for bed mobility and CGA for transfers with FWW. Patient able to ambulate 30 ft with CGA and FWW, distance limited by c/o fatigue. Patient will benefit from skilled inpatient PT intervention to increase strength and postural stability for improved level of functional mobility and safety. Recommend discharge home with home PT once medically cleared by MD. Patient has rollator at home. Addendum: 08/09/20 at 1245 by TROY BATRES PT Amended: Links added.
--- NOTE | 2020-08-09 10:42 | General Progress Note ---
Subjective Allergies: Coded Allergies: NSAIDS (NON-STEROIDAL ANTI-INFLAMMA (Verified Allergy, Mild, 01/30/16) Uncoded Allergies: NSAIDS (Allergy, Unknown, 03/15/16) Subjective feels better c/o nausea/vomiting last night subsided sob bp is better Objective Last 24 Hour Vital Signs Date Time Temp Pulse Resp B/P (MAP) Pulse Ox O2 Delivery O2 Flow Rate FiO2 08/09/20 09:00 Room Air 08/09/20 08:05 62 112/57 08/09/20 08:05 112/57 08/09/20 08:05 62 112/57 08/09/20 07:58 98.1 62 18 112/57 (75) 95 08/09/20 06:13 167/117 08/09/20 04:00 98.6 59 18 152/59 (90) 93 08/09/20 00:44 162/64 08/08/20 23:49 98.6 58 18 162/64 (96) 94 08/08/20 21:45 162/65 (97) 08/08/20 21:35 145/66 08/08/20 21:00 Room Air 08/08/20 20:18 67 159/80 08/08/20 20:00 98.5 67 18 159/80 (106) 93 08/08/20 17:11 150/72 08/08/20 16:00 98.1 65 19 150/72 (98) 97 08/08/20 14:23 143/61 08/08/20 12:00 98.1 61 19 163/59 (93) 96 08/08/20 12:00 62 08/08/20 11:17 178/70 Intake and Output 08/08/20 08/09/20 19:00 07:00 Intake Total 270 ml 600 ml Balance 270 ml 600 ml Intake Oral 270 ml 600 ml # Voids 2 Laboratory Tests 08/08/20 11:20: POC Whole Blood Glucose 163H 08/08/20 20:20: POC Whole Blood Glucose [Pending] 08/09/20 06:02: POC Whole Blood Glucose 54L 08/09/20 06:04: POC Whole Blood Glucose 52L Height (Feet): 5 Height (Inches): 7.00 Weight (Pounds): 160 General Appearance: alert EENT: PERRL/EOMI Neck: supple Cardiovascular: regular rhythm Extremities: non-tender Assessment/Plan Assessment/Plan: hypoglycemic episodes monitor 1 chf combined 2 fluid overload 3 htn accelareted better 4 dm 5 dm neuropathy 6 weakness 7 depression 8 n/v better transfer to [facility] pt/ot fluid and salt restriction cardio and nephro consult adjust cardiac meds dc plan once accue check stable decrease lorenza moran mother Keenan Dey MD Aug 09, 2020 10:42
--- NOTE | 2020-08-09 11:23 | NUR ---
NURSE NOTES: Dr. Dey seen during his round. gave RN written prescription for home medication and as well as to put discharge order with [facility] for PT
--- NOTE | 2020-08-09 12:28 | NUR ---
*-*discharge planning*-* PATIENT HAS BEEN REFERRED TO: [facility] P: [phone] S/W OSIEL, CANNOT ACCEPT PATIENT, PATIENT IS ALREADY SERVICED WITH [facility].
--- NOTE | 2020-08-09 12:31 | NUR ---
*-*DISCHARGE PLANNED*-* PATIENT HAS BEEN REFERRED AND ACCEPTED WITH [facility]. P: [phone] S/W KAVON, WILL SERVICE PATIENT UPON DISCHARGE.
--- NOTE | 2020-08-09 15:57 | NUR ---
DISCHARGE PLANNING S/W PATIENT AT BEDSIDE IN RE TO [facility]. PER PATIENT, SHE IS SCHEDULED T--S AT RENAL AT [address] CALL MADE TO [facility] [address] [phone]. S/W ANGELITO. CONFIRMED PATIENTS CHAIR TIME IS TS 1130 AM FOR APPROX 2-3 HOURS PER SESSION PER PATIENT, SHE HAS A STANDING ORDER FOR TRANSPORTATION WITH [facility].
--- NOTE | 2020-08-09 17:12 | Cardiology Progress Note ---
Assessment/Plan Assessment/Plan The patient is seen and examined, full consult note is dictated. Objective Last 24 Hour Vital Signs Date Time Temp Pulse Resp B/P (MAP) Pulse Ox O2 Delivery O2 Flow Rate FiO2 08/09/20 16:13 180/77 08/09/20 16:00 98.3 62 17 151/71 (97) 96 08/09/20 14:00 145/68 08/09/20 12:00 97.7 64 19 145/68 (93) 96 08/09/20 09:00 Room Air 08/09/20 08:05 62 112/57 08/09/20 08:05 112/57 08/09/20 08:05 62 112/57 08/09/20 07:58 98.1 62 18 112/57 (75) 95 08/09/20 06:13 167/117 08/09/20 04:00 98.6 59 18 152/59 (90) 93 08/09/20 00:44 162/64 08/08/20 23:49 98.6 58 18 162/64 (96) 94 08/08/20 21:45 162/65 (97) 08/08/20 21:35 145/66 08/08/20 21:00 Room Air 08/08/20 20:18 67 159/80 08/08/20 20:00 98.5 67 18 159/80 (106) 93 Intake and Output 08/08/20 08/09/20 19:00 07:00 Intake Total 270 ml 600 ml Balance 270 ml 600 ml Intake Oral 270 ml 600 ml # Voids 2 Laboratory Tests Test 08/08/20 20:20 08/09/20 06:02 08/09/20 06:04 POC Whole Blood Glucose Pending 54 MG/DL (74-106) L 52 MG/DL (74-106) L Syed Cardenas MD Aug 09, 2020 17:12
--- NOTE | 2020-08-09 19:22 | NUR ---
NURSE HAND-OFF: Important Events on Shift:dialysis 2L out, D/c for home with home health Patient Status: stable Diet: Renal Pending Orders: n/a Pending Results/Labs:n/a Pending MD notification:n/a Latest Vital Signs: Temperature 98.3 , Pulse 62 , B/P 172 /73 , Respiratory Rate 17 , O2 SAT 96 , Room Air, O2 Flow Rate . Vital Sign Comment: stable Latest [place] Fall Score: 60 Fall Risk: High Risk Safety Measures: Call light Within Reach, Bed Alarm Zone 1, Side Rails Side Rails x3, Bed position Low and Locked. Fall Precautions: Yellow Socks Yellow Gown Patient Fall Education Report given to ELAYNE Bansal.
--- NOTE | 2020-08-09 19:45 | NUR ---
NURSE NOTES: pt. received from ELAYNE Galeana. Pt. AAOx4, breathing even and unlabored on room air, no indications of SOB and no active complaints of pain. IV noted left wrist 24g intact and patent, saline locked. Pt. anticipating discharge, waiting for transportation team. Bed low and locked, side rails x2 up, and call light in reach.
[2020-08-09] MEDS: Atorvastatin 20mg tab ORAL SCH ×2 (20:39→21:00)
[2020-08-09] MEDS: Metoprolol Tartrate 50mg tab ORAL SCH ×2 (20:39→21:00)
--- NOTE | 2020-08-09 21:09 | NUR ---
NURSE NOTES: Pt.with h6wijnah episode, 400cc straw colored. unable to administer and tolerate PO medication. Bp 170/100, now 186/80. Zeinab, [facility] team unable to transport pt. with current blood pressure. Per Zeinab, pt. will be placed on will call and can be called to be picked up later tonight if family member willing to accept. Mother Mary Carmen Arora called and notified of pt.'s condition and held transfer. Will follow up with Dr. Dey.
--- NOTE | 2020-08-09 22:01 | NUR ---
NURSE NOTES: Pt. still vomiting, unable to tolerate PO medications or intake. Blood pressure medication held per change in condition. Dr Dey aware.
--- NOTE | 2020-08-09 22:14 | Consultation ---
DATE OF CONSULTATION: 08/09/2020 CARDIOLOGY CONSULTATION CONSULTING PHYSICIAN: Syed Cardenas MD REFERRING PHYSICIAN: Keenan Dey MD REASON FOR CONSULTATION: Management of congestive heart failure. HISTORY OF PRESENT ILLNESS: The patient is a very unfortunate 70-year-old female, who presented to the hospital with complaints of progressively worsening shortness of breath as well as worsening of lower extremity edema for about a week despite the fact that she has been religiously compliant with her hemodialysis. She stated that she had full dialysis the day before she started to feel short of breath. She did not have any chest pain at the time of arrival, but admitted to mild dry cough. At the time of arrival to the hospital, blood pressure was 168/70 mmHg and heart rate was 62. Her coronary artery disease risk factors include hypertension, diabetes mellitus, and age. Initial workup in the emergency department revealed BUN and creatinine of 25 and 6.4 respectively, glucose level of 208, troponin I level of 0.030, and pro-brain natriuretic peptide of over 35,000. A 12-lead electrocardiogram in the emergency department showed sinus bradycardia at a rate of 59 with no acute ischemic features. A chest x-ray in the hospital was significant for right pleural effusion moderate in size with bilateral pulmonary edema consistent with congestive heart failure. The patient was admitted to the hospital for evaluation and management of shortness of breath. Cardiology consultation was made at the request of Dr. Dey to evaluate and manage this condition. PAST MEDICAL HISTORY: Includes hypertension, diabetes mellitus, gastroparesis, end-stage renal disease, uremic encephalopathy in the past, and weakness. ALLERGIES: To nonsteroidal anti-inflammatory drugs. REVIEW OF SYSTEMS: HEENT: Denies any headache, diplopia, or blurred vision. CONSTITUTIONAL: Denies any fever, chills, night sweats, or weight loss. Positive for fatigue and malaise. CARDIOVASCULAR SYSTEM: Denies any chest pain. Positive for shortness of breath and lower extremity edema. Denies any PND, orthopnea, palpitations, or syncope. PULMONARY: Denies any cough, hemoptysis, or wheezing. Positive for shortness of breath. GASTROINTESTINAL: Denies any nausea, vomiting, diarrhea, constipation, abdominal pain, or GI bleed. GENITOURINARY: Making small amount of urine still, on hemodialysis 3 days a week, compliant with it. NEUROLOGIC: Denies any motor dysfunction, sensory deficit, or altered speech. MEDICATIONS: List of medications includes acetaminophen 325 mg q.4h. p.r.n. pain, amitriptyline 10 mg p.o. nightly, amlodipine 10 mg p.o. daily, apixaban 2.5 mg twice daily, Lipitor 20 mg p.o. nightly, Catapres 0.1 mg daily p.r.n. systolic blood pressure above 160, vitamin D 50,000 units once a month, Lasix 20 mg 3 times a day, Neurontin 600 mg nightly, hydrocodone/acetaminophen 10/325 1 tablet q.4h. p.r.n. pain, Levemir insulin 10 units subcu daily, levothyroxine 25 mcg p.o. daily, losartan 50 mg twice daily, metoprolol 25 mg daily and 50 mg at bedtime, Renvela 1600 mg once a day before hemodialysis and 3 times a day as well, Nephro-Moises 1 tablet daily. HABITS: Denies any tobacco, alcohol, or illicit drug use. FAMILY HISTORY: No premature coronary artery disease in first-degree relatives. PHYSICAL EXAMINATION: VITAL SIGNS: Blood pressure at time of arrival to the hospital was 168/76 mmHg, respirations 15, pulse of 62, temperature 96.8 degrees Fahrenheit, O2 saturation was 97% on room air. GENERAL: The patient is a very pleasant 70-year-old female seen in Cardiology consultation. Alert and oriented x4. HEENT: Atraumatic and normocephalic. Anicteric. Pupils are equal, round, and reactive to light and accommodation. Extraocular muscles intact. NECK: JVP less than 5 cm. No carotid bruit. Carotid upstrokes 2+ bilaterally. CARDIOVASCULAR SYSTEM: Normal S1, S2. Regular rate and rhythm. No murmurs, gallops, or rubs. PMI is at fourth intercostal space in the midclavicular line. LUNGS: Diminished breath sounds at right base, otherwise bilateral crackles. ABDOMEN: Soft, nontender, and nondistended. No hepatosplenomegaly. Positive bowel sounds. EXTREMITIES: Right upper extremity dialysis fistula in place with palpable thrill. A 2 to 3+ bilateral lower extremity edema. LABORATORY FINDINGS: Sodium was 138, potassium was 4.8, chloride 104, bicarbonate 28, BUN of 25, creatinine 6.4, glucose is 208, calcium is 9.3. ProBNP over 35,000. Troponin I is 0.03. WBC was 8.2, hemoglobin of 12.5, hematocrit 40.1, platelet count is 156,000. ASSESSMENT AND PLAN: The patient is a very unfortunate 70-year-old female seen in Cardiology consultation. 1. Worsening of shortness of breath in this patient is most likely due to moderate-sized right pleural effusion that probably requires to be tapped and sent for chemistry, cell count. The patient will also benefit from 2D echocardiography to assess LV systolic and diastolic function. Chest x-ray is clearly significant for hypervolemia and pulmonary edema. More aggressive hemodialysis should be considered. Further therapeutic and diagnostic decision will be based on the results of 2D echocardiography. 2. History of diabetes mellitus. The patient will benefit from combination of aspirin and statins. 3. History of hypertension. We will continue with a combination of hydralazine, metoprolol, amlodipine, and clonidine as needed. 4. Possible paroxysmal atrial fibrillation. It is not clear why the patient is on Eliquis. The patient's rhythm is sinus rhythm. I would like to thank Dr. Dey for allowing me to participate in the care of this patient. Syed Cardenas M.D. DR: Melva JOB#: [id number] CC:
--- NOTE | 2020-08-09 23:42 | Psychiatric Progress Note ---
Psychiatry Progress Note Psychiatry Progress Note Medications Current Medications Medications (Trade) Dose Ordered Sig/Clau Route PRN Reason Start Time Stop Time Status Last Admin Dose Admin Acetaminophen (Tylenol) 325 mg Q4H PRN ORAL For Pain 08/05/20 21:30 09/04/20 21:29 08/08/20 17:12 Acetaminophen/ Hydrocodone Bitart ([place] 10/325) 1 tab Q4H PRN ORAL For Pain 08/05/20 21:30 08/12/20 21:29 08/06/20 17:11 Amitriptyline HCl (Elavil) 10 mg BEDTIME ORAL 08/06/20 21:00 09/05/20 20:59 08/08/20 20:17 Amlodipine Besylate (Norvasc) 10 mg DAILY ORAL 08/06/20 09:00 09/05/20 08:59 08/08/20 09:20 Apixaban (Eliquis) 2.5 mg BID ORAL 08/06/20 09:00 11/04/20 08:59 08/09/20 17:16 Atorvastatin Calcium (Lipitor) 20 mg BEDTIME ORAL 08/06/20 21:00 11/04/20 20:59 08/08/20 20:18 Clonidine HCl (Catapres Tab) 0.1 mg Q8H PRN ORAL For High Blood Pressure 08/06/20 17:00 11/04/20 16:59 08/09/20 16:13 Dextrose (Dextrose 50%) 25 ml Q30M PRN IV Hypoglycemia 08/05/20 21:45 11/03/20 21:44 Dextrose (Dextrose 50%) 50 ml Q30M PRN IV Hypoglycemia 08/05/20 21:45 11/03/20 21:44 Docusate Sodium (Colace) 100 mg THREE TIMES A DAY ORAL 08/08/20 13:00 09/07/20 12:59 Escitalopram Oxalate (Lexapro) 10 mg DAILY ORAL 08/07/20 09:00 09/06/20 08:59 08/09/20 08:04 Gabapentin (Neurontin) 300 mg DAILY ORAL 08/06/20 09:00 09/05/20 08:59 08/09/20 08:04 Hydralazine HCl (Apresoline) 100 mg BID ORAL 08/09/20 21:30 11/07/20 21:29 Insulin Aspart (NovoLOG) BEFORE MEALS AND HS SUBQ 08/05/20 22:00 11/03/20 21:59 08/08/20 12:44 Levothyroxine Sodium (Synthroid) 25 mcg ACBREAKFAST ORAL 08/06/20 06:30 09/05/20 06:29 08/09/20 06:12 Losartan Potassium (Cozaar) 50 mg BID ORAL 08/06/20 09:00 09/05/20 08:59 08/09/20 17:16 Metoprolol Tartrate (Lopressor) 25 mg DAILY ORAL 08/06/20 09:00 11/04/20 08:59 08/08/20 09:19 Metoprolol Tartrate (Lopressor) 50 mg BEDTIME ORAL 08/06/20 21:00 11/04/20 20:59 08/08/20 20:18 Pantoprazole (Protonix) 40 mg EVERY 12 HOURS ORAL 08/08/20 21:00 09/07/20 20:59 08/09/20 08:04 Sevelamer Carbonate (Renvela) 800 mg THREE TIMES A DAY ORAL 08/09/20 09:00 11/04/20 08:59 08/09/20 17:16 Vitamin B Complex/ Vit C/Folic Acid (Nephrovite) 1 tab DAILY ORAL 08/06/20 09:00 09/05/20 08:59 08/09/20 08:03 Neurological/Psychiatric: Reports: anxiety, depressed, numbness, weakness Allergies: Coded Allergies: NSAIDS (NON-STEROIDAL ANTI-INFLAMMA (Verified Allergy, Mild, 01/30/16) Uncoded Allergies: NSAIDS (Allergy, Unknown, 03/15/16) Objective Data Height (Feet): 5 Height (Inches): 7.00 Weight (Pounds): 160 General Appearance: WD/WN, no apparent distress, alert Additional Comments: alert, oriented times self, place, situation. Mood is depressed. Affect is tearful. Thought process is linear and goal oriented. Thought content, negative for suicidal or homicidal ideation. Cognition is intact. Insight and judgment fair. Assessment/Plan [place] I: ASSESSMENT: [place] I Major depressive disorder. Anxiety disorder. [place] II Deferred. [place] III End-stage renal disease. [place] IV Low. [place] V 50. PLAN: 1. We will start the patient on Lexapro 10 mg in the morning. 2. Provide the patient with reality orientation and supportive therapy. Status Narrative ASSESSMENT: [place] I Major depressive disorder. Anxiety disorder. [place] II Deferred. [place] III End-stage renal disease. [place] IV Low. [place] V 50. PLAN: 1. We will start the patient on Lexapro 10 mg in the morning. 2. Provide the patient with reality orientation and supportive therapy. Assessment/Plan: ASSESSMENT: [place] I Major depressive disorder. Anxiety disorder. [place] II Deferred. [place] III End-stage renal disease. [place] IV Low. [place] V 50. PLAN: 1. We will start the patient on Lexapro 10 mg in the morning. 2. Provide the patient with reality orientation and supportive therapy. Finn Noonan MD Aug 09, 2020 23:42
[2020-08-10] VITALS (7 sets, daily range): BP systolic 151–194; BP diastolic 59–81
--- NOTE | 2020-08-10 04:52 | NUR ---
NURSE NOTES: Last emesis episode at 0210. Pt. given PRN clonidine as ordered, pt. still hypertensive. Latest BP 194/71, Dr. Dey notified. Zofran ordered for N/V and given. Charge nurse aware.
[2020-08-10] MEDS: Levothyroxine 25mcg tab ORAL SCH (06:22)
[2020-08-10] MEDS: NovoLOG Insulin Flexpen SUBQ SCH ×4 (06:23→21:00)
--- NOTE | 2020-08-10 06:53 | NUR ---
NURSE NOTES: Orders received by Dr. Dey to adjust BP medications, and instructed to refer to cardio for further BP issues.
--- NOTE | 2020-08-10 07:34 | NUR ---
NURSE HAND-OFF: Important Events on Shift:[]pt. with emesis throughout the night, hypertensive; discharge held. orders received from dr. zheng. Patient Status: sleeping Diet: Renal Pending Orders: na Pending Results/Labs:na Pending MD notification:na Latest Vital Signs: Temperature 98.3 , Pulse 81 , B/P 194 /81 , Respiratory Rate 18 , O2 SAT 94 , Room Air, O2 Flow Rate . Vital Sign Comment: hypertension Latest Peterson Fall Score: 60 Fall Risk: High Risk Safety Measures: Call light Within Reach, Bed Alarm Zone 1, Side Rails Side Rails x3, Bed position Low and Locked. Fall Precautions: Yellow Socks Yellow Gown Patient Fall Education Report given to ELAYNE Cantu.
--- NOTE | 2020-08-10 07:37 | NUR ---
NURSE NOTES: Patient looks sleeps, tired; on room air, no sing of distress and shortness of breath; no sign of chest pain; IV Left Wrist, flushes well; bilateral extremities swollen; Hemo-dialysis access on Right AV Shunt; patient BP was high last night and unable to discharge this patient at the previous shift; side rails up x2, breaks engaged, bed at lowest position, bed alarm on; call light within reach; patient instructed to call for help; will keep monitoring patient's BP and carry out the plan of care;
[2020-08-10 08:21] LABS: HEMATOCRIT 47.4 % (37.0-47.0); HEMOGLOBIN 14.3 G/DL (12.0-16.0); MEAN CORPUSCULAR VOLUME 104 FL (80-99); PLATELET COUNT 181 K/UL (150-450); RED BLOOD COUNT 4.56 M/UL (4.20-5.40); RED CELL DISTRIBUTION WIDTH 13.8 % (11.6-14.8); WHITE BLOOD COUNT 12.2 K/UL (4.8-10.8)
[2020-08-10 08:48] LABS: ALBUMIN 3.7 G/DL (3.4-5.0); ALBUMIN/GLOBULIN RATIO 1.2 (1.0-2.7); BILIRUBIN,TOTAL 0.8 MG/DL (0.2-1.0); CALCIUM 9.3 MG/DL (8.5-10.1); CREATININE 5.8 MG/DL (0.55-1.30); PHOSPHORUS 2.9 MG/DL (2.5-4.9); POTASSIUM 4.7 MMOL/L (3.5-5.1)
[2020-08-10] MEDS: Eliquis 2.5mg tablet ORAL SCH ×2 (09:52→17:11)
[2020-08-10] MEDS: Docusate 100mg cap ORAL SCH ×3 (09:52→17:11)
[2020-08-10] MEDS: Losartan 50mg tab ORAL SCH ×2 (09:52→17:11)
[2020-08-10] MEDS: Nephrovite tab (Rena-Vite) ORAL SCH (09:53)
[2020-08-10] MEDS: Metoprolol Tartrate 50mg tab ORAL SCH ×2 (09:53→17:11)
[2020-08-10] MEDS: HydrALAZINE 50mg tab ORAL SCH ×2 (10:00→17:11)
--- NOTE | 2020-08-10 10:06 | Pulmonology Progress Note ---
Subjective ROS Limited/Unobtainable: No Interval Events: Doing better; Constitutional: Reports: no symptoms HEENT: Repors: no symptoms Respiratory: Reports: no symptoms Cardiovascular: Reports: no symptoms Allergies: Coded Allergies: NSAIDS (NON-STEROIDAL ANTI-INFLAMMA (Verified Allergy, Mild, 01/30/16) Uncoded Allergies: NSAIDS (Allergy, Unknown, 03/15/16) Objective Last 24 Hour Vital Signs Date Time Temp Pulse Resp B/P (MAP) Pulse Ox O2 Delivery O2 Flow Rate FiO2 08/10/20 10:00 160/64 08/10/20 09:53 79 160/64 08/10/20 09:53 79 160/64 08/10/20 09:52 160/64 08/10/20 09:50 98.3 81 18 194/81 (118) 94 08/10/20 07:36 162/63 (96) 08/10/20 04:00 98.3 81 18 194/81 (118) 94 08/10/20 01:15 191/74 08/09/20 23:08 197/70 (112) 08/09/20 22:35 153/77 (102) 08/09/20 21:45 186/70 (108) 08/09/20 21:00 Room Air 08/09/20 21:00 170/100 (123) 08/09/20 20:00 98.3 74 18 191/80 (117) 92 08/09/20 17:16 172/73 08/09/20 16:13 180/77 08/09/20 16:00 98.3 62 17 151/71 (97) 96 08/09/20 14:00 145/68 08/09/20 12:00 97.7 64 19 145/68 (93) 96 Intake and Output 08/09/20 08/10/20 19:00 07:00 Intake Total 120 ml Output Total 2000 ml Balance -1880 ml Intake Oral 120 ml Output Hemodialysis UF 2000 ml # Voids 1 # Bowel Movements 2 General Appearance: no acute distress HEENT: normocephalic Respiratory: chest wall non-tender, lungs clear Cardiovascular: normal peripheral pulses, normal rate Abdomen: normal bowel sounds Laboratory Tests 08/10/20 06:18: POC Whole Blood Glucose [Pending] 08/10/20 07:45: White Blood Count 12.2H, Red Blood Count 4.56, Hemoglobin 14.3, Hematocrit 47.4H , Mean Corpuscular Volume 104H, Mean Corpuscular Hemoglobin 31.3H, Mean Corpuscular Hemoglobin Concent 30.1L, Red Cell Distribution Width 13.8, Platelet Count 181, Mean Platelet Volume 8.8, Neutrophils (%) (Auto) , Lymphocytes (%) (Auto) , Monocytes (%) (Auto) , Eosinophils (%) (Auto) , Basophils (%) (Auto) , Neutrophils % (Manual) [Pending], Lymphocytes % (Manual) [Pending], Platelet Estimate [Pending], Platelet Morphology [Pending], Sodium Level 142, Potassium Level 4.7, Chloride Level 102, Carbon Dioxide Level 29, Anion Gap 11, Blood Urea Nitrogen 22H, Creatinine 5.8H, Estimat Glomerular Filtration Rate 8.7, Glucose Level 253H, Calcium Level 9.3, Phosphorus Level 2.9, Total Bilirubin 0.8, Aspartate Amino Transf (AST/SGOT) 17, Alanine Aminotransferase (ALT/SGPT) 19, Alkaline Phosphatase 186H, Total Protein 6.9, Albumin 3.7, Globulin 3.2, Albumin/Globulin Ratio 1.2 Current Medications Medications (Trade) Dose Ordered Sig/Clau Route PRN Reason Start Time Stop Time Status Last Admin Dose Admin Acetaminophen (Tylenol) 325 mg Q4H PRN ORAL For Pain 08/05/20 21:30 09/04/20 21:29 08/08/20 17:12 Acetaminophen/ Hydrocodone Bitart ([place] 10/325) 1 tab Q4H PRN ORAL For Pain 08/05/20 21:30 08/12/20 21:29 08/06/20 17:11 Amitriptyline HCl (Elavil) 10 mg BEDTIME ORAL 08/06/20 21:00 09/05/20 20:59 08/08/20 20:17 Amlodipine Besylate (Norvasc) 10 mg DAILY ORAL 08/06/20 09:00 09/05/20 08:59 08/10/20 09:53 Apixaban (Eliquis) 2.5 mg BID ORAL 08/06/20 09:00 11/04/20 08:59 08/10/20 09:52 Atorvastatin Calcium (Lipitor) 20 mg BEDTIME ORAL 08/06/20 21:00 11/04/20 20:59 11/5/20 20:18 Clonidine HCl (Catapres Tab) 0.1 mg Q8H PRN ORAL For High Blood Pressure 08/06/20 17:00 11/04/20 16:59 08/10/20 01:15 Dextrose (Dextrose 50%) 25 ml Q30M PRN IV Hypoglycemia 08/05/20 21:45 11/03/20 21:44 Dextrose (Dextrose 50%) 50 ml Q30M PRN IV Hypoglycemia 08/05/20 21:45 11/03/20 21:44 Docusate Sodium (Colace) 100 mg THREE TIMES A DAY ORAL 08/08/20 13:00 09/07/20 12:59 08/10/20 09:52 Escitalopram Oxalate (Lexapro) 10 mg DAILY ORAL 08/07/20 09:00 09/06/20 08:59 08/10/20 09:54 Gabapentin (Neurontin) 300 mg DAILY ORAL 08/06/20 09:00 09/05/20 08:59 08/10/20 09:52 Hydralazine HCl (Apresoline) 100 mg BID ORAL 08/09/20 21:30 11/07/20 21:29 08/10/20 10:00 Insulin Aspart (NovoLOG) BEFORE MEALS AND HS SUBQ 08/05/20 22:00 11/03/20 21:59 08/10/20 06:23 Levothyroxine Sodium (Synthroid) 25 mcg ACBREAKFAST ORAL 08/06/20 06:30 09/05/20 06:29 08/09/20 06:12 Losartan Potassium (Cozaar) 50 mg BID ORAL 08/06/20 09:00 09/05/20 08:59 08/10/20 09:52 Metoclopramide HCl (Reglan) 5 mg BID ORAL 08/10/20 09:00 09/09/20 08:59 08/10/20 09:52 Metoprolol Tartrate (Lopressor) 50 mg BID ORAL 08/10/20 09:00 11/04/20 20:59 08/10/20 09:53 Ondansetron HCl (Zofran) 4 mg Q6H PRN IVP Nausea & Vomiting 08/10/20 04:30 09/09/20 04:29 08/10/20 04:39 Pantoprazole (Protonix) 40 mg EVERY 12 HOURS ORAL 08/08/20 21:00 09/07/20 20:59 08/10/20 09:52 Sevelamer Carbonate (Renvela) 800 mg THREE TIMES A DAY ORAL 08/09/20 09:00 11/04/20 08:59 08/10/20 09:52 Vitamin B Complex/ Vit C/Folic Acid (Nephrovite) 1 tab DAILY ORAL 08/06/20 09:00 09/05/20 08:59 08/10/20 09:53 Assessment/Plan Assessment/Plan IMPRESSION: 1. Pulmonary edema. 2. ESRD on dialysis. DISCUSSION: Agree with hemodialysis. Continue oxygen prn Currently saturating 95% on RA Continue pulmonary hygiene. I will follow carefully. Blood pressure control. Jose De Jesus Sheppard Omar Syed MD Aug 10, 2020 10:06
--- NOTE | 2020-08-10 11:20 | NUR ---
PHYSICAL THERAPY NOTES: 1120 PT deferred this am as pt is sound asleep & unable to rouse. Will check back later today. 1350 Unable to see for PT as pt on H/D.
--- NOTE | 2020-08-10 12:01 | Nephrology Progress Note ---
Assessment/Plan Problem List: (1) ESRD (end stage renal disease) on dialysis (2) CHF exacerbation (3) Hypertensive kidney disease (4) Diabetic sensorimotor polyneuropathy Plan August 10: Coverage for Dr. Burris Patient oxygenation low again today. Will repeat dialysis and ultrafiltration today again. Continue monitor renal parameters. August 09: Coverage for Dr. Burris No chemistry panel done today. Patient due for dialysis and ultrafiltration today. Stable from renal standpoint of view. Blood sugar fluctuating, defer diabetic management to PMD. For now I will stop Levemir dose as the patient's blood sugar down. August 08: Coverage for Dr. Chan Labs reviewed. Blood pressure medication adjusted, patient is started on hydralazine. Phos binder dose decreased. Patient was dialyzed 2 days in a row. Will arrange for dialysis tomorrow. Continue per consultants. Subjective ROS Limited/Unobtainable: No Constitutional: Reports: malaise, weakness Objective Objective Last 24 Hour Vital Signs Date Time Temp Pulse Resp B/P (MAP) Pulse Ox O2 Delivery O2 Flow Rate FiO2 08/10/20 10:00 160/64 08/10/20 09:53 79 160/64 08/10/20 09:53 79 160/64 08/10/20 09:52 160/64 08/10/20 09:50 98.3 81 18 194/81 (118) 94 08/10/20 09:00 Room Air 08/10/20 08:00 97.7 79 20 160/64 (96) 100 08/10/20 07:36 162/63 (96) 08/10/20 04:00 98.3 81 18 194/81 (118) 94 08/10/20 01:15 191/74 08/09/20 23:08 197/70 (112) 08/09/20 22:35 153/77 (102) 08/09/20 21:45 186/70 (108) 08/09/20 21:00 Room Air 08/09/20 21:00 170/100 (123) 08/09/20 20:00 98.3 74 18 191/80 (117) 92 08/09/20 17:16 172/73 08/09/20 16:13 180/77 08/09/20 16:00 98.3 62 17 151/71 (97) 96 08/09/20 14:00 145/68 Intake and Output 08/09/20 08/10/20 19:00 07:00 Intake Total 120 ml Output Total 2000 ml Balance -1880 ml Intake Oral 120 ml Output Hemodialysis UF 2000 ml # Voids 1 # Bowel Movements 2 Current Medications Medications (Trade) Dose Ordered Sig/Clau Route PRN Reason Start Time Stop Time Status Last Admin Dose Admin Acetaminophen (Tylenol) 325 mg Q4H PRN ORAL For Pain 08/05/20 21:30 09/04/20 21:29 08/08/20 17:12 Acetaminophen/ Hydrocodone Bitart ([place] 10/325) 1 tab Q4H PRN ORAL For Pain 08/05/20 21:30 08/12/20 21:29 08/06/20 17:11 Amitriptyline HCl (Elavil) 10 mg BEDTIME ORAL 08/06/20 21:00 09/05/20 20:59 08/08/20 20:17 Amlodipine Besylate (Norvasc) 10 mg DAILY ORAL 08/06/20 09:00 09/05/20 08:59 08/10/20 09:53 Apixaban (Eliquis) 2.5 mg BID ORAL 08/06/20 09:00 11/04/20 08:59 08/10/20 17:11 Atorvastatin Calcium (Lipitor) 20 mg BEDTIME ORAL 08/06/20 21:00 11/04/20 20:59 08/08/20 20:18 Clonidine HCl (Catapres Tab) 0.1 mg Q8H PRN ORAL For High Blood Pressure 08/06/20 17:00 11/04/20 16:59 08/10/20 01:15 Dextrose (Dextrose 50%) 25 ml Q30M PRN IV Hypoglycemia 08/05/20 21:45 11/03/20 21:44 Dextrose (Dextrose 50%) 50 ml Q30M PRN IV Hypoglycemia 08/05/20 21:45 11/03/20 21:44 Docusate Sodium (Colace) 100 mg THREE TIMES A DAY ORAL 08/08/20 13:00 09/07/20 12:59 08/10/20 17:11 Escitalopram Oxalate (Lexapro) 10 mg DAILY ORAL 08/07/20 09:00 09/06/20 08:59 08/10/20 09:54 Gabapentin (Neurontin) 300 mg DAILY ORAL 08/06/20 09:00 09/05/20 08:59 08/10/20 09:52 Hydralazine HCl (Apresoline) 100 mg BID ORAL 08/09/20 21:30 11/07/20 21:29 08/10/20 17:11 Insulin Aspart (NovoLOG) BEFORE MEALS AND HS SUBQ 08/05/20 22:00 11/03/20 21:59 08/10/20 12:27 Levothyroxine Sodium (Synthroid) 25 mcg ACBREAKFAST ORAL 08/06/20 06:30 09/05/20 06:29 08/09/20 06:12 Losartan Potassium (Cozaar) 50 mg BID ORAL 08/06/20 09:00 09/05/20 08:59 08/10/20 17:11 Metoclopramide HCl (Reglan) 5 mg BID ORAL 08/10/20 09:00 09/09/20 08:59 08/10/20 17:12 Metoprolol Tartrate (Lopressor) 50 mg BID ORAL 08/10/20 09:00 11/04/20 20:59 08/10/20 17:11 Ondansetron HCl (Zofran) 4 mg Q6H PRN IVP Nausea & Vomiting 08/10/20 04:30 09/09/20 04:29 08/10/20 04:39 Pantoprazole (Protonix) 40 mg EVERY 12 HOURS ORAL 08/08/20 21:00 09/07/20 20:59 08/10/20 09:52 Sevelamer Carbonate (Renvela) 800 mg THREE TIMES A DAY ORAL 08/09/20 09:00 11/04/20 08:59 08/10/20 17:12 Vitamin B Complex/ Vit C/Folic Acid (Nephrovite) 1 tab DAILY ORAL 08/06/20 09:00 09/05/20 08:59 08/10/20 09:53 Laboratory Tests 08/10/20 06:18: POC Whole Blood Glucose [Pending] 08/10/20 07:45: White Blood Count 12.2H, Red Blood Count 4.56, Hemoglobin 14.3, Hematocrit 47.4H , Mean Corpuscular Volume 104H, Mean Corpuscular Hemoglobin 31.3H, Mean Corpuscular Hemoglobin Concent 30.1L, Red Cell Distribution Width 13.8, Platelet Count 181, Mean Platelet Volume 8.8, Neutrophils (%) (Auto) , Lymphocytes (%) (Auto) , Monocytes (%) (Auto) , Eosinophils (%) (Auto) , Basophils (%) (Auto) , Differential Total Cells Counted 100, Neutrophils % (Manual) 93H, Lymphocytes % (Manual) 3L, Monocytes % (Manual) 3, Eosinophils % (Manual) 0, Basophils % (Manual) 0, Band Neutrophils 1, Platelet Estimate Adequate, Platelet Morphology Normal, Macrocytosis 1+, Sodium Level 142, Potassium Level 4.7, Chloride Level 102, Carbon Dioxide Level 29, Anion Gap 11, Blood Urea Nitrogen 22H, Creatinine 5.8H, Estimat Glomerular Filtration Rate 8.7, Glucose Level 253H, Calcium Level 9.3, Phosphorus Level 2.9, Total Bilirubin 0.8, Aspartate Amino Transf (AST/SGOT) 17, Alanine Aminotransferase (ALT/SGPT) 19, Alkaline Phosphatase 186H , Total Protein 6.9, Albumin 3.7, Globulin 3.2, Albumin/Globulin Ratio 1.2 Height (Feet): 5 Height (Inches): 7.00 Weight (Pounds): 160 General Appearance: mild distress Cardiovascular: normal rate Respiratory/Chest: decreased breath sounds Abdomen: distended Emir Caceres MD Aug 10, 2020 12:01
--- NOTE | 2020-08-10 12:05 | NUR ---
NURSE NOTES: Patient is mani-sating 83% on room air; I communicated MD Rondon and I got the order for Nasal Cannula 2 Liters; also MD Rondon recommended to communicated nephrology; will communicate as ordered and carried out the order as given;
--- NOTE | 2020-08-10 12:16 | NUR ---
NURSE NOTES: Per MD Rondon recommendation, I communicated MD Evans regarding patient is dis-sating and might need hemodialysis today; MD Randall said gustabo put the order for Hemodialysis;
--- NOTE | 2020-08-10 12:19 | NUR ---
NURSE NOTES: [facility] nurseJose is aware that there is a Hemodialysis order for this patient;
--- NOTE | 2020-08-10 13:22 | General Progress Note ---
Subjective Allergies: Coded Allergies: NSAIDS (NON-STEROIDAL ANTI-INFLAMMA (Verified Allergy, Mild, 01/30/16) Uncoded Allergies: NSAIDS (Allergy, Unknown, 03/15/16) Subjective c/o nausea/vomiting last night subsided sob poor po intake Objective Last 24 Hour Vital Signs Date Time Temp Pulse Resp B/P (MAP) Pulse Ox O2 Delivery O2 Flow Rate FiO2 08/10/20 12:50 92 08/10/20 12:00 98.2 67 20 161/59 (93) 83 08/10/20 10:00 160/64 08/10/20 09:53 79 160/64 08/10/20 09:53 79 160/64 08/10/20 09:52 160/64 08/10/20 09:50 98.3 81 18 194/81 (118) 94 08/10/20 09:00 Room Air 08/10/20 08:00 97.7 79 20 160/64 (96) 100 08/10/20 07:36 162/63 (96) 08/10/20 04:00 98.3 81 18 194/81 (118) 94 08/10/20 01:15 191/74 08/09/20 23:08 197/70 (112) 08/09/20 22:35 153/77 (102) 08/09/20 21:45 186/70 (108) 08/09/20 21:00 Room Air 08/09/20 21:00 170/100 (123) 08/09/20 20:00 98.3 74 18 191/80 (117) 92 08/09/20 17:16 172/73 08/09/20 16:13 180/77 08/09/20 16:00 98.3 62 17 151/71 (97) 96 08/09/20 14:00 145/68 Intake and Output 08/09/20 08/10/20 19:00 07:00 Intake Total 120 ml Output Total 2000 ml Balance -1880 ml Intake Oral 120 ml Output Hemodialysis UF 2000 ml # Voids 1 # Bowel Movements 2 Laboratory Tests 08/10/20 06:18: POC Whole Blood Glucose [Pending] 08/10/20 07:45: White Blood Count 12.2H, Red Blood Count 4.56, Hemoglobin 14.3, Hematocrit 47.4H , Mean Corpuscular Volume 104H, Mean Corpuscular Hemoglobin 31.3H, Mean Corpuscular Hemoglobin Concent 30.1L, Red Cell Distribution Width 13.8, Platelet Count 181, Mean Platelet Volume 8.8, Neutrophils (%) (Auto) , Lymphocytes (%) (Auto) , Monocytes (%) (Auto) , Eosinophils (%) (Auto) , Basophils (%) (Auto) , Differential Total Cells Counted 100, Neutrophils % (Manual) 93H, Lymphocytes % (Manual) 3L, Monocytes % (Manual) 3, Eosinophils % (Manual) 0, Basophils % (Manual) 0, Band Neutrophils 1, Platelet Estimate Adequate, Platelet Morphology Normal, Macrocytosis 1+, Sodium Level 142, Potassium Level 4.7, Chloride Level 102, Carbon Dioxide Level 29, Anion Gap 11, Blood Urea Nitrogen 22H, Creatinine 5.8H, Estimat Glomerular Filtration Rate 8.7, Glucose Level 253H, Calcium Level 9.3, Phosphorus Level 2.9, Total Bilirubin 0.8, Aspartate Amino Transf (AST/SGOT) 17, Alanine Aminotransferase (ALT/SGPT) 19, Alkaline Phosphatase 186H , Total Protein 6.9, Albumin 3.7, Globulin 3.2, Albumin/Globulin Ratio 1.2 Height (Feet): 5 Height (Inches): 7.00 Weight (Pounds): 160 General Appearance: alert EENT: PERRL/EOMI Neck: supple Cardiovascular: regular rhythm Respiratory/Chest: crackles/rales Abdomen: non tender, soft Extremities: non-tender Skin: warm/dry Assessment/Plan Assessment/Plan: hypoglycemic resolved 1 chf combined 2 fluid overload 3 htn accelareted better 4 dm 5 dm neuropathy 6 weakness 7 depression 8 n/v persistent add reglan transfer to [facility] pt/ot fluid and salt restriction cardio and nephro consult adjust cardiac meds dc plan once accue check stable decrease lorenza dw mother hd today add metaprolol 50 mg po bid monitor bp always high hold Keenan Allen MD Aug 10, 2020 13:21
--- NOTE | 2020-08-10 18:28 | NUR ---
NURSE NOTES: Per Hemodialysis nurse, 3 Liters of fluid removed;
--- NOTE | 2020-08-10 19:30 | NUR ---
HAND-OFF: Report given to ELAYNE Perez.
--- NOTE | 2020-08-10 20:32 | NUR ---
NURSE NOTES: Patient in bed, awake, alert and verbally responsive. Able to make needs known. REspiration is even and unlabored. Kept clean and comfortable. Bed in low and locked position. Provide safe environment. Skin is warm and dry to touch. Abdomen is soft and non distended. No complaint of pain or discomfort. Iv site noted. Call light is at bedside. WIll continue plan of care.
[2020-08-10] MEDS: Atorvastatin 20mg tab ORAL SCH (22:01)
[2020-08-11] VITALS: BP 158/66
[2020-08-11 04:00] VITALS: BP 165/67
[2020-08-11] MEDS: Levothyroxine 25mcg tab ORAL SCH (05:46)
[2020-08-11] MEDS: NovoLOG Insulin Flexpen SUBQ SCH (05:48)
--- NOTE | 2020-08-11 07:18 | NUR ---
NURSE HAND-OFF: Important Events on Shift:elevated BP Patient Status: WNL Diet: Pending Orders: CBC, BMP Pending Results/Labs: Pending MD notification: Latest Vital Signs: Temperature 97.9 , Pulse 68 , B/P 165 /67 , Respiratory Rate 20 , O2 SAT 94 , Room Air, O2 Flow Rate . Vital Sign Comment: WNL Latest Peterson Fall Score: 60 Fall Risk: High Risk Safety Measures: Call light Within Reach, Bed Alarm Zone 1, Side Rails Side Rails x3, Bed position Low and Locked. Fall Precautions: Yellow Socks Yellow Gown Patient Fall Education Report given to ELAYNE Pepe.
[2020-08-11 07:47] LABS: HEMATOCRIT 44.6 % (37.0-47.0); HEMOGLOBIN 13.5 G/DL (12.0-16.0); MEAN CORPUSCULAR VOLUME 103 FL (80-99); PLATELET COUNT 205 K/UL (150-450); RED BLOOD COUNT 4.33 M/UL (4.20-5.40); RED CELL DISTRIBUTION WIDTH 13.7 % (11.6-14.8); WHITE BLOOD COUNT 12.8 K/UL (4.8-10.8)
--- NOTE | 2020-08-11 07:56 | NUR ---
NURSE NOTES: Patient awake, alert x3; sitting at the bed and stated that feeling nauseated, and container provided; IV Left Wrist flushes well; side rails up x2, breaks engaged, bed at lowest position, call light within reach; BP was high and Clonidine given by PM nurseMatteo; will keep monitoring BP and carry out the plan of care;
[2020-08-11 08:00] VITALS: BP 176/59
[2020-08-11 08:42] LABS: ALANINE AMINOTRANSFERASE 11 U/L (12-78); ALBUMIN 3.7 G/DL (3.4-5.0); ALBUMIN/GLOBULIN RATIO 1.2 (1.0-2.7); ALKALINE PHOSPHATASE 164 U/L (46-116); ANION GAP 10 mmol/L (5-15); ASPARTATE AMINO TRANSFERASE 20 U/L (15-37); BLOOD UREA NITROGEN 20 mg/dL (7-18); CALCIUM 10.1 MG/DL (8.5-10.1); CARBON DIOXIDE 33 MMOL/L (21-32); CHLORIDE 98 MMOL/L (98-107); CREATININE 5.1 MG/DL (0.55-1.30); POTASSIUM 4.5 MMOL/L (3.5-5.1); SODIUM 140 MMOL/L (136-145)
[2020-08-11] MEDS: Docusate 100mg cap ORAL SCH (09:31)
[2020-08-11] MEDS: Metoprolol Tartrate 50mg tab ORAL SCH (09:32)
[2020-08-11] MEDS: Losartan 50mg tab ORAL SCH (09:32)
[2020-08-11 09:34] VITALS: BP 176/59
[2020-08-11] MEDS: HydrALAZINE 50mg tab ORAL SCH (09:34)
[2020-08-11] MEDS: Nephrovite tab (Rena-Vite) ORAL SCH (09:34)
[2020-08-11] MEDS: Eliquis 2.5mg tablet ORAL SCH (09:35)
--- NOTE | 2020-08-11 09:37 | NUR ---
NURSE NOTES: Patient is lethargic, doesn't respond for her name; blood sugar checked 133; will keep monitoring.
--- NOTE | 2020-08-11 09:56 | Nephrology Progress Note ---
Assessment/Plan Problem List: (1) ESRD (end stage renal disease) on dialysis (2) CHF exacerbation (3) Hypertensive kidney disease (4) Diabetic sensorimotor polyneuropathy Plan August 11:Coverage for Dr. Burris Patient seen in the room. RN available. Patient can be woken up. However she is not verbal. Limbs are weak. More on the right than left. Patient was dialyzed 2 days in a row. Labs reviewed. Renal parameters stable. Patient medications reviewed. On certain mind altering medication. I defer the adjustment of the medication to neurologist, psychiatrist and PMD. Dr. Johnson will be back tomorrow to resume care. RN to check blood sugars. August 10: Coverage for Dr. Burris Patient oxygenation low again today. Will repeat dialysis and ultrafiltration today again. Continue monitor renal parameters. August 09: Coverage for Dr. Burris No chemistry panel done today. Patient due for dialysis and ultrafiltration today. Stable from renal standpoint of view. Blood sugar fluctuating, defer diabetic management to PMD. For now I will stop Levemir dose as the patient's blood sugar down. August 08: Coverage for Dr. Chan Labs reviewed. Blood pressure medication adjusted, patient is started on hydralazine. Phos binder dose decreased. Patient was dialyzed 2 days in a row. Will arrange for dialysis tomorrow. Continue per consultants. Subjective ROS Limited/Unobtainable: Yes Objective Objective Last 24 Hour Vital Signs Date Time Temp Pulse Resp B/P (MAP) Pulse Ox O2 Delivery O2 Flow Rate FiO2 08/11/20 09:34 176/59 08/11/20 09:34 71 176/59 08/11/20 09:32 71 176/59 08/11/20 09:32 176/59 08/11/20 08:00 98.2 71 20 176/59 (98) 99 08/11/20 07:18 165/67 08/11/20 04:00 97.9 68 20 165/67 (99) 94 08/11/20 00:00 98.3 63 18 158/66 (96) 95 08/10/20 22:00 160/60 08/10/20 21:00 Room Air 08/10/20 20:00 98.4 60 18 160/60 (93) 95 08/10/20 17:11 76 151/69 08/10/20 17:11 151/69 08/10/20 17:11 151/69 08/10/20 16:00 98.9 76 18 151/69 (96) 99 08/10/20 12:50 92 08/10/20 12:00 98.2 67 20 161/59 (93) 83 08/10/20 10:00 160/64 Intake and Output 08/10/20 08/11/20 19:00 07:00 Intake Total 520 ml 120 ml Balance 520 ml 120 ml Intake Oral 120 ml 120 ml Other 400 ml Laboratory Tests 08/11/20 05:48: POC Whole Blood Glucose [Pending] 08/11/20 07:20: White Blood Count 12.8H, Red Blood Count 4.33, Hemoglobin 13.5, Hematocrit 44.6, Mean Corpuscular Volume 103H, Mean Corpuscular Hemoglobin 31.2H, Mean Corpuscular Hemoglobin Concent 30.3L, Red Cell Distribution Width 13.7, Platelet Count 205, Mean Platelet Volume 7.9, Neutrophils (%) (Auto) , Lymphocytes (%) (Auto) , Monocytes (%) (Auto) , Eosinophils (%) (Auto) , Basophils (%) (Auto) , Neutrophils % (Manual) [Pending], Lymphocytes % (Manual) [Pending], Platelet Estimate [Pending], Platelet Morphology [Pending], Sodium Level 140, Potassium Level 4.5, Chloride Level 98, Carbon Dioxide Level 33H, Anion Gap 10, Blood Urea Nitrogen 20H, Creatinine 5.1H, Estimat Glomerular Filtration Rate 10.2, Glucose Level 158H, Calcium Level 10.1, Phosphorus Level 3.0, Magnesium Level 2.6H, Total Bilirubin 1.0, Aspartate Amino Transf (AST/SGOT) 20, Alanine Aminotransferase (ALT/SGPT) 11L, Alkaline Phosphatase 164H, C-Reactive Protein, Quantitative < 0.4, Pro-B-Type Natriuretic Peptide > [id number], Total Protein 6.8, Albumin 3.7, Globulin 3.1, Albumin/Globulin Ratio 1.2 Height (Feet): 5 Height (Inches): 7.00 Weight (Pounds): 160 General Appearance: no apparent distress, other - Nonverbal today Cardiovascular: normal rate Respiratory/Chest: decreased breath sounds Abdomen: soft Neurologic: other - Nonresponsive. Appears to have right weakness. Fouladian,Emir MD Aug 11, 2020 09:56
--- NOTE | 2020-08-11 10:40 | NUR ---
NURSE NOTES: I communicated MD Dey regarding patient's change, patient said she is dying, she stapped her mother; also patient's mother came to take patient at home; explanied the mother that I need to communicate MD Dey to get discharge order; MD Dey said will call back;
--- NOTE | 2020-08-11 11:28 | Pulmonology Progress Note ---
Subjective ROS Limited/Unobtainable: Yes Interval Events: Doing better; Constitutional: Reports: no symptoms HEENT: Repors: no symptoms Respiratory: Reports: no symptoms Cardiovascular: Reports: no symptoms Allergies: Coded Allergies: NSAIDS (NON-STEROIDAL ANTI-INFLAMMA (Verified Allergy, Mild, 01/30/16) Uncoded Allergies: NSAIDS (Allergy, Unknown, 03/15/16) Objective Last 24 Hour Vital Signs Date Time Temp Pulse Resp B/P (MAP) Pulse Ox O2 Delivery O2 Flow Rate FiO2 08/11/20 09:34 176/59 08/11/20 09:34 71 176/59 08/11/20 09:32 71 176/59 08/11/20 09:32 176/59 08/11/20 09:00 Room Air 08/11/20 08:00 98.2 71 20 176/59 (98) 99 08/11/20 07:18 165/67 08/11/20 04:00 97.9 68 20 165/67 (99) 94 08/11/20 00:00 98.3 63 18 158/66 (96) 95 08/10/20 22:00 160/60 08/10/20 21:00 Room Air 08/10/20 20:00 98.4 60 18 160/60 (93) 95 08/10/20 17:11 76 151/69 08/10/20 17:11 151/69 08/10/20 17:11 151/69 08/10/20 16:00 98.9 76 18 151/69 (96) 99 08/10/20 12:50 92 08/10/20 12:00 98.2 67 20 161/59 (93) 83 Intake and Output 08/10/20 08/11/20 18:59 06:59 Intake Total 520 ml 120 ml Output Total 3000 ml Balance -2480 ml 120 ml Intake Oral 120 ml 120 ml Other 400 ml Output Hemodialysis UF 3000 ml General Appearance: no acute distress HEENT: normocephalic Respiratory: chest wall non-tender, lungs clear Cardiovascular: normal peripheral pulses, normal rate Abdomen: normal bowel sounds Laboratory Tests 08/11/20 05:48: POC Whole Blood Glucose [Pending] 08/11/20 07:20: White Blood Count 12.8H, Red Blood Count 4.33, Hemoglobin 13.5, Hematocrit 44.6, Mean Corpuscular Volume 103H, Mean Corpuscular Hemoglobin 31.2H, Mean Corpuscular Hemoglobin Concent 30.3L, Red Cell Distribution Width 13.7, Platelet Count 205, Mean Platelet Volume 7.9, Neutrophils (%) (Auto) , Lymphocytes (%) (Auto) , Monocytes (%) (Auto) , Eosinophils (%) (Auto) , Basophils (%) (Auto) , Differential Total Cells Counted 100, Neutrophils % (Manual) 89H, Lymphocytes % (Manual) 5L, Monocytes % (Manual) 6, Eosinophils % (Manual) 0, Basophils % (Manual) 0, Band Neutrophils 0, Platelet Estimate Adequate, Platelet Morphology Normal, Macrocytosis 1+, Sodium Level 140, Potassium Level 4.5, Chloride Level 98, Carbon Dioxide Level 33H, Anion Gap 10, Blood Urea Nitrogen 20H, Creatinine 5.1H, Estimat Glomerular Filtration Rate 10.2, Glucose Level 158H, Calcium Level 10.1, Phosphorus Level 3.0, Magnesium Level 2.6H, Total Bilirubin 1.0, Aspartate Amino Transf (AST/SGOT) 20, Alanine Aminotransferase (ALT/SGPT) 11L, Alkaline Phosphatase 164H, C-Reactive Protein, Quantitative < 0.4, Pro-B-Type Natriuretic Peptide > 04108K, Total Protein 6.8, Albumin 3.7, Globulin 3.1, Albumin/Globulin Ratio 1.2 Current Medications Medications (Trade) Dose Ordered Sig/Clau Route PRN Reason Start Time Stop Time Status Last Admin Dose Admin Acetaminophen (Tylenol) 325 mg Q4H PRN ORAL For Pain 08/05/20 21:30 09/04/20 21:29 08/08/20 17:12 Acetaminophen/ Hydrocodone Bitart ([place]enderson 10/325) 1 tab Q4H PRN ORAL For Pain 08/05/20 21:30 08/12/20 21:29 08/06/20 17:11 Amitriptyline HCl (Elavil) 10 mg BEDTIME ORAL 08/06/20 21:00 09/05/20 20:59 08/10/20 22:01 Amlodipine Besylate (Norvasc) 10 mg DAILY ORAL 08/06/20 09:00 09/05/20 08:59 08/11/20 09:34 Apixaban (Eliquis) 2.5 mg BID ORAL 08/06/20 09:00 11/04/20 08:59 08/11/20 09:35 Atorvastatin Calcium (Lipitor) 20 mg BEDTIME ORAL 08/06/20 21:00 11/04/20 20:59 08/10/20 22:01 Clonidine HCl (Catapres Tab) 0.1 mg Q8H PRN ORAL For High Blood Pressure 08/06/20 17:00 11/04/20 16:59 08/11/20 07:18 Dextrose (Dextrose 50%) 25 ml Q30M PRN IV Hypoglycemia 08/05/20 21:45 11/03/20 21:44 Dextrose (Dextrose 50%) 50 ml Q30M PRN IV Hypoglycemia 08/05/20 21:45 11/03/20 21:44 Docusate Sodium (Colace) 100 mg THREE TIMES A DAY ORAL 08/08/20 13:00 09/07/20 12:59 08/11/20 09:31 Escitalopram Oxalate (Lexapro) 10 mg DAILY ORAL 08/07/20 09:00 09/06/20 08:59 08/11/20 09:31 Gabapentin (Neurontin) 300 mg DAILY ORAL 08/06/20 09:00 09/05/20 08:59 08/11/20 09:31 Hydralazine HCl (Apresoline) 100 mg BID ORAL 08/09/20 21:30 11/07/20 21:29 08/11/20 09:34 Insulin Aspart (NovoLOG) BEFORE MEALS AND HS SUBQ 08/05/20 22:00 11/03/20 21:59 08/10/20 21:00 Levothyroxine Sodium (Synthroid) 25 mcg ACBREAKFAST ORAL 08/06/20 06:30 09/05/20 06:29 08/11/20 05:46 Losartan Potassium (Cozaar) 50 mg BID ORAL 08/06/20 09:00 09/05/20 08:59 08/11/20 09:32 Metoclopramide HCl (Reglan) 5 mg BID ORAL 08/10/20 09:00 09/09/20 08:59 08/11/20 09:31 Metoprolol Tartrate (Lopressor) 50 mg BID ORAL 08/10/20 09:00 11/04/20 20:59 08/11/20 09:32 Ondansetron HCl (Zofran) 4 mg Q6H PRN IVP Nausea & Vomiting 08/10/20 04:30 09/09/20 04:29 08/10/20 04:39 Pantoprazole (Protonix) 40 mg EVERY 12 HOURS ORAL 08/08/20 21:00 09/07/20 20:59 08/11/20 09:31 Sevelamer Carbonate (Renvela) 800 mg THREE TIMES A DAY ORAL 08/09/20 09:00 11/04/20 08:59 08/11/20 09:35 Vitamin B Complex/ Vit C/Folic Acid (Nephrovite) 1 tab DAILY ORAL 08/06/20 09:00 09/05/20 08:59 08/11/20 09:34 Assessment/Plan Assessment/Plan IMPRESSION: 1. Pulmonary edema. 2. ESRD on dialysis. DISCUSSION: Agree with hemodialysis. Continue oxygen prn Currently saturating 95% on RA Continue pulmonary hygiene. I will follow carefully. Blood pressure control. Bin Ibrahim M.D. Bin Ibrahim MD Aug 11, 2020 11:28
--- NOTE | 2020-08-11 11:56 | NUR ---
NURSE NOTES: Patient left against medical advice; patient's mother insisted to take patient home; belonging singed by patient's mother and primary nurse; also patient mother signed Against Medical Advice paper; IV line and name tag removed;
--- NOTE | 2020-08-11 21:30 | Discharge Summary ---
DATE OF ADMISSION: 08/05/2020 DATE OF DISCHARGE: 08/11/2020 HOSPITAL COURSE: This is an elderly 70-year-old female who came to the hospital where she had a fall, generalized weakness, and dehydration. Patient was found to have CHF, decompensated, diastolic. Patient was started on Lasix. Cardiology consult was obtained. Patient also has episodes of recurrent nausea, vomiting, abdominal pain, and accelerated hypertension. Patient's blood pressure was always high. Adjusted her medicines. Patient has been not able to eat because of nausea and vomiting. Patient was also given Reglan. this morning came. Her blood pressure was high. She signed against medical advice to take her home. She does not understand at this point. So, told the patient to call my office if anything happens. Mal Dey M.D. DR: ANICETO JOB#: [id number] CC:
--- NOTE | 2020-08-12 14:41 | Discharge Summary ---
Discharge Summary Discharge Summary _ DISCHARGE SUMMARY (please refer to discharge summary dictated by dr Dey) FINAL DIAGNOSES End-stage renal disease, on hemodialysis CHF exacerbation Pulmonary edema Fluid overload Hypertensive kidney disease Diabetes mellitus with diabetic sensorimotor polyneuropathy Major depressive disorder Anxiety disorder Apoorva Myers NP Aug 12, 2020 14:41
== END 2020-08-11 11:18 | disposition left against medical advice (07) | DRG 291 ==
LOC: EMR 15:45 → 2E 16:45 → EDBEDREQ 18:08 → 2E 19:40 → 4E 08-08 15:15
DX: I13.2 Hypertensive heart and chronic kidney disease with heart failure and with stage 5 chronic kidney disease, or end stage renal disease (principal); N18.6 End stage renal disease; I50.43 Acute on chronic combined systolic (congestive) and diastolic (congestive) heart failure; N25.81 Secondary hyperparathyroidism of renal origin; Z88.6 Allergy status to analgesic agent; E11.22 Type 2 diabetes mellitus with diabetic chronic kidney disease; Z79.4 Long term (current) use of insulin; Z99.2 Dependence on renal dialysis; E11.42 Type 2 diabetes mellitus with diabetic polyneuropathy; F32.9 Major depressive disorder, single episode, unspecified; F41.9 Anxiety disorder, unspecified; D63.1 Anemia in chronic kidney disease
CPT/HCPCS: 36415; 71045; 80048; 80053; 82962; 83735; 83880; 84100; 84443; 84484; 84550; 85007; 85025; 86140; 86706; 87081; 93005; 93970; 96374; 96375; 99285; J1815; J2405; S5561; U0002